=== PATIENT | male | born 1945 | race African-American/Black ===

== ENCOUNTER 2016-06-23 15:30 | Inpatient (IN) | payer OTHER ==
[~2016-06-23] VITALS: Ht 175.3 cm; Wt 90.7 kg
--- NOTE | 2016-06-23 15:30 | NUR ---
Patient was BIBA at this time. Dr. Harvey evaluating patient.
--- NOTE | 2016-06-23 15:32 | NUR ---
Patient taken to bed 04.
[2016-06-23] MEDS ORDERED: NACL 0.9% 1,000 ML IV ONE (15:35)
[2016-06-23 15:38] VITALS: BP 137/65
[2016-06-23] MEDS ORDERED: COUMADIN2 MG PO (15:44)
[2016-06-23] MEDS ORDERED: LOTENSIN20 MG PO (15:44)
--- NOTE | 2016-06-23 15:56 | NUR ---
PHYSICIAN REQUESTS VBG TO BE DONE. BLOOD SAMPLE OBTAINED FROM LAB. RESULTS GIVEN TO . PT NOT SOB AND NOT IN RESPIRATORY DISTRESS AT THIS TIME.
--- NOTE | 2016-06-23 16:00 | NUR ---
PATIENT PRESENTS TO ED WITH nausea and vomiting poor appetite . PT STATES SKIN IS PINK/WARM/DRY; AAOX4 WITH EVEN AND STEADY GAIT; LUNGS CLEAR BL; HR EVEN AND REGULAR; PT DENIES ANY FEVER, CP, SOB, OR COUGH AT THIS TIME; PATIENT STATES PAIN OF 0/10 AT THIS TIME; VSS; PATIENT POSITIONED FOR COMFORT; HOB ELEVATED; BEDRAILS UP X2; BED DOWN. ER MD MADE AWARE OF PT STATUS. left sided deficits s/p cva
[2016-06-23] MEDS ORDERED: ONDANSETRON 4 MG/2 ML VIAL IVP ONE (16:15)
--- NOTE | 2016-06-23 16:20 | NUR ---
pt's brother at bedside--- speaking with pt and his brother, going over pt's health care plan
--- NOTE | 2016-06-23 16:21 | NUR ---
PER LAB, GLUCOSE IS 567. I MADE THIS KNOWN TO DR. SEYMOUR.
[2016-06-23] MEDS ORDERED: INSULIN HUMAN REGULAR 100 UNITS/ML 10 ML VIAL IVP ONE (16:25)
[2016-06-23] MEDS ORDERED: NACL 0.9% 1,000 ML IV SCH (16:51)
[2016-06-23] MEDS ORDERED: HYDROcodone/APAP 5/325 MG 1 TAB TAB PO PRN (16:55)
[2016-06-23] MEDS ORDERED: ONDANSETRON 4 MG/2 ML VIAL IVP PRN (16:55)
[2016-06-23] MEDS ORDERED: MORPHINE SULFATE 2 MG/ML SYR IVP PRN (16:55)
[2016-06-23] MEDS ORDERED: ACETAMINOPHEN 325 MG TAB PO PRN (16:55)
[2016-06-23] MEDS ORDERED: WARFARIN 2 MG TAB PO SCH (17:00)
[2016-06-23] MEDS ORDERED: DEXTROSE 50% 50 ML SYR IVP PRN (17:05)
[2016-06-23] MEDS ORDERED: ALBUTEROL SULFATE/IPRATROPIU 3 ML SOL IH PRN (17:15)
--- NOTE | 2016-06-23 17:35 | NUR ---
Pt transferred to Tele via [facility], report given to Austin PAGE
--- NOTE | 2016-06-23 17:36 | NUR ---
pt refusing the need to void at this time.
[2016-06-23 17:45] VITALS: BP 129/75
--- NOTE | 2016-06-23 17:45 | NUR ---
PT ALERT AND RESPONSIVE, NO SIGN OF ACUTE DISTRESS. SKIN IS WARM AND DRY. NO SIGNS OF ACUTE DISTRESS. NO EPISODES OF ANY NAUSEA OR VOMITING, NO C/O ANY BLADDER DISCOMFORT. OFFLOAD TO PRESSURE AREAS, KEPT CLEAN AND DRY. WITH HX OF CVA WITH LEFT SIDED WEAKNESS. WITH GOOD ROM ON RIGHT UPPER AND LOWER EXTREMITIES. ORIENTED TO HOSPITAL ENVIRONMENT. SAFETY PRECAUTIONS MAINTAINED. CALL LIGHT WITHIN REACH.
[2016-06-23] MEDS ORDERED: MAG SULF 2000 MG/WATER PREMIX 50 ML IV ONE (18:45)
--- NOTE | 2016-06-23 18:52 | NUR ---
PT ALERT AND RESPONSIVE, NO SIGNS OF ACUTE DISTRESS. WILL ENDORSE TO ONCOMING CERTIFIED NOVELL ENGINEER NURSE FOR CONTINUITY OF CARE.
--- NOTE | 2016-06-23 19:20 | NUR ---
RECEIVED PT IN STABLE CONDITION FROM KAYLEE PINEDA. NO SOB, NO SIGNS OF DISTRESS. VS STABLE ON ROOM AIR. PT IS AOX4, WITH DELAYED SPEECH. PT IS CHAIR FAST WITH LT SIDED SEVERE WEAKNESS. PT DENIES PAIN AT THIS TIME. SKIN IS INTACT. IV TO LT FA 20G PATENT, ASYMPTOMATIC, INTACT, IVF RUNNING. PLAN OF CARE DISCUSSED WITH PT. SAFETY MEASURES IN PLACE. CALL LIGHT WITHIN REACH. WILL CONTINUE TO MONITOR.
--- NOTE | 2016-06-23 19:50 | NUR ---
CALL FROM MD LEE. SPOKE WITH HEEL LAYER AND REQUESTED TO BE PLACED PTS ATTENDING MD SINCE HE IS THE ONE WHO SENT PT TO HOSPITAL.
--- NOTE | 2016-06-23 19:58 | NUR ---
SPOKE WITH MD DONOVAN LATENT FINGERPRINT EXAMINER FOR MD PARKER, MD DONOVAN MADE AWARE OF MD LEE REQUEST AND SATED NOT TO CHANGE PTS MD OR PUT IN A CONSULT AT THIS TIME. MD DONOVAN STATED AN MD FROM THE GROUP WILL SPEAK TO MD LEE REGARDING THE MATTER.
[2016-06-23 20:00] VITALS: BP 99/52
[2016-06-23] MEDS: BLOOD GLUCOSE MONITORING 1 DEV DEV FS SCH (20:31)
[2016-06-23] MEDS: INSULIN LISPRO SLIDING SCALE 100 UNITS/ML VIAL SUBQ PRN (20:32)
--- NOTE | 2016-06-23 20:32 | NUR ---
PTS BLOOD SUGAR 335, GAVE INSULIN PER MD ORDER, PT TOLERATED WELL. HUNG MAG RIDER PER MD ORDER. NO SOB, NO SIGNS OF DISTRESS. IV SITE ASYMPTOMATIC, INTACT, PATENT, IVPB RUNNING. PT DENIES PAIN AT THIS TIME. PLAN OF CARE DISCUSSED WITH PT. SAFETY MEASURES IN PLACE. CALL LIGHT WITHIN REACH. WILL CONTINUE TO MONITOR.
--- NOTE | 2016-06-23 20:57 | NUR ---
NO DISTRESS/SOB/WHEEZING NOTED AT THIS TIME. NO INDICATION FOR HHN PRN TX.
--- NOTE | 2016-06-23 21:31 | NUR ---
CALLED MD ROSA MD MADE AWARE THAT MD DONOVAN IS AWARE AND WILL BE SPEAKING WITH TOMORROW.
--- NOTE | 2016-06-23 22:48 | NUR ---
PT ASLEEP IN BED. NO SOB, NO SIGNS OF DISTRESS. IV SITE ASYMPTOMATIC, INTACT, PATENT, IVF RUNNING. SAFETY MEASURES IN PLACE. CALL LIGHT WITHIN REACH. WILL CONTINUE TO MONITOR.
--- NOTE | 2016-06-23 23:31 | NUR ---
ATTEMPTED TO DO ABG X 3, UNABLE TO OBTAIN SAMPLE. PT REFUSING ANY MORE ATTEMPTS. PT'S RNJOSE RAUL NOTIFIED OF ATTEMPTS MADE AND PT REFUSAL.
[2016-06-24] VITALS: BP 122/60
--- NOTE | 2016-06-24 00:05 | NUR ---
VS STABLE ON ROOM AIR. NO SOB, NO SIGNS OF DISTRESS. IV SITE ASYMPTOMATIC, INTACT, PATENT, IVF RUNNING. PT DENIES PAIN AT THIS TIME. PLAN OF CARE DISCUSSED WITH PT. SAFETY MEASURES IN PLACE. CALL LIGHT WITHIN REACH. WILL CONTINUE TO MONITOR.
[2016-06-24 04:00] VITALS: BP 120/75
[2016-06-24] MEDS: BLOOD GLUCOSE MONITORING 1 DEV DEV FS SCH ×4 (06:31→20:35)
[2016-06-24] MEDS: INSULIN LISPRO SLIDING SCALE 100 UNITS/ML VIAL SUBQ PRN ×4 (06:32→20:39)
--- NOTE | 2016-06-24 06:40 | NUR ---
CALL FROM PTS BROTHER INQUIRING ABOUT PTS CONDITION. UPDATED BROTHER ON HOW PT IS DOING. BROTHER STATED HE WILL BE BY AT 0800 THIS AM.
--- NOTE | 2016-06-24 07:02 | NUR ---
ENDORSED PT IN STABLE CONDITION TO KAYLEE PINEDA. ALL NEEDS HAVE BEEN MET AT THIS TIME.
--- NOTE | 2016-06-24 07:03 | NUR ---
PT. AWAKE, ALERT AND ORIENTED X4, BREATHING EVEN AND UNLABORED BILATERALLY, NO APPARENT DISTRESS, ABDOMEN IS SOFT AND NON-TENDER TO TOUCH, SKIN DRY, WARM AND INTACT HOWEVER AT RISK FOR SKIN BREAKDOWN (LOW MARIS), BOWEL AND BLADDER INCONTINENCE, PT. MAXIMUM ASSISTANCE WITH ADL'S WITH LEFT SIDED WEAKNESS S/P CVA. CHAIRFAST, DENIES PAIN, SIDE RAILS UP, BED LOCKED WITH ALARMS ON, IN LOW POSITION, ALL NEEDS ATTENDED, CALL LIGHT WITHIN REACH.
--- NOTE | 2016-06-24 07:06 | NUR ---
PATIENT HAS BEEN SCREENED AND CATEGORIZED HIGH NUTRITION RISK. PATIENT WILL BE SEEN WITHIN 1-2 DAYS OF ADMISSION. 06/24/16-06/25/16 TEO LEON MS, RDN
[2016-06-24 07:55] VITALS: BP 121/59
[2016-06-24] MEDS: GABAPENTIN 300 MG CAP PO SCH ×2 (08:12→20:36)
[2016-06-24] MEDS: OXYBUTYNIN 5 MG TAB PO SCH (08:12)
[2016-06-24] MEDS: ATORVASTATIN 20 MG TAB PO SCH (08:12)
[2016-06-24] MEDS: BENAZEPRIL 5 MG TAB PO SCH (08:13)
[2016-06-24] MEDS: METOPROLOL SUCCINATE 50 MG TABER PO SCH (08:13)
[2016-06-24] MEDS: DOCUSATE SODIUM 100 MG GELCAP PO SCH (08:13)
--- NOTE | 2016-06-24 10:22 | NUR ---
06/24/16 RD INITIAL ASSESSMENT COMPLETED PLEASE REFER TO NUTRITION ASSESSMENT UNDER CARE ACTIVITY FOR ESTIMATED NUTRITIONAL NEEDS. RD RECOMMENDATIONS: 1. CONTINUE NPO MEDICALLY APPROPRIATE PER MD. 2. CONSIDER ADVANCING DIET TO 60 GM CCHO T[address]. [address]. RD WILL F/U 3-5 DAYS; MODERATE RISK. TEO LEON MS, RDN
--- NOTE | 2016-06-24 11:30 | NUR ---
RECEIVED NEW MED AND LAB ORDERS FROM DR RAJAN, TO BE CARRIED OUT.
[2016-06-24 12:00] VITALS: BP 135/70
[2016-06-24] MEDS ORDERED: POTASSIUM PHOSPHATE 15 MM in NACL 0.9% 250 ML IV ONE (12:15)
[2016-06-24] MEDS ORDERED: MAG SULF 2000 MG/WATER PREMIX 50 ML IV ONE (12:15)
--- NOTE | 2016-06-24 12:28 | NUR ---
NEW ORDERS RECEIVED FROM DR LEE AND DR RAJAN, TO BE CARRIED OUT.
[2016-06-24] MEDS: NACL 0.9% 1,000 ML IV SCH ×2 (12:50→22:36)
--- NOTE | 2016-06-24 12:52 | NUR ---
WAS SEEN BY Grisel MCDONOUGH NEW ORDER RECEIVED FOR CXR. NOTED AND CARRIED OUT.
[2016-06-24 16:00] VITALS: BP 132/70
[2016-06-24] MEDS: metFORMIN 500 MG TAB PO SCH (16:39)
[2016-06-24] MEDS: WARFARIN 2 MG TAB PO SCH (16:40)
[2016-06-24] MEDS ORDERED: NACL 0.9% 1,000 ML IV SCH (16:51)
--- NOTE | 2016-06-24 18:56 | NUR ---
PT. ALERT AND ORIENTED X4, IN NO APPARENT DISTRESS, TRANSFER CARE TO LARGE ANIMAL VETERINARIAN NURSE.
--- NOTE | 2016-06-24 19:30 | NUR ---
RECEIVED REPORT FROM KAYLEE PINEDA, AT BEDSIDE. INITIAL ASSESSMENT AND BODY CHECK DONE. PATIENT IS AAO X 4, ABLE TO FOLLOW COMMAND AND MAKE NEEDS KNOWN AND ON BEDREST WITH LT SIDE WEAKNESS. PATIENT CURRENTLY SITING UP ON THE BED AND WATCHING TV. NO S/S OF DISTRESS OR SOB NOTED. SKIN WARM/DRY TO TOUCH WITH NORMAL COLOR AND INTACT. DISCUSSED PLAN OF CARE, PAIN MANAGEMENT AND MEDICATION REGIMEN WITH PATIENT AND PATIENT VERBALIZED UNDERSTANDING. PLACED PATIENT ON SAFETY/FALL/ASPIRATION/PRESSURE ULCER PRECAUTIONS AND WILL CONTINUE TO MONITOR WITH REPOSITION Q 2 HOURS. CALL LIGHT LEFT WITHIN REACH.
[2016-06-24 20:00] VITALS: BP 124/73
--- NOTE | 2016-06-24 21:40 | NUR ---
ADMINISTERED DUE MEDICATIONS MD'S ORDERED WITH EDUCATION GIVEN. PATIENT COMPLYING WITH MEDICATIONS AND TOLERATED WELL. MAINTAINED PROPER BODY ALIGNMENT AND KEPT PATIENT WARM. WILL CONTINUE TO MONITOR.
[2016-06-25] VITALS: BP 97/52
--- NOTE | 2016-06-25 00:54 | NUR ---
PATIENT STILL AWAKE AND WATCHING TV COMFORTABLY. VSS AND NO ANY COMPLAINT MADE. ASSISTED TO REPOSITION AND PATIENT TOLERATED WELL. WILL CONTINUE TO MONITOR.
[2016-06-25 04:00] VITALS: BP 130/88
--- NOTE | 2016-06-25 04:38 | NUR ---
PATIENT RESTED QUIETLY IN BED WITH EVEN AND UNLABORED RESPIRATORY RATE. NO CHANGE IN CONDITION NOTED. AM CARE/AD-CARE GIVEN WITH LINENS CHANGED AND REPOSITION BY TWO OPHTHALMIC SURGICAL ASSISTANT. PATIENT TOLERATED WELL. WILL CONTINUE TO MONITOR.
[2016-06-25] MEDS: BLOOD GLUCOSE MONITORING 1 DEV DEV FS SCH ×4 (05:42→20:35)
[2016-06-25] MEDS: INSULIN LISPRO SLIDING SCALE 100 UNITS/ML VIAL SUBQ PRN ×3 (05:44→20:38)
--- NOTE | 2016-06-25 07:36 | NUR ---
ENDORSED PLAN OF CARE TO KAYLEE VILLARREAL, AT BEDSIDE. PATIENT RESTED WELL AND REMAINED IN STABLE CONDITION WITHOUT DISTRESS NOTED.
--- NOTE | 2016-06-25 07:40 | NUR ---
RECEIVED REPORT FROM KAYLEE SORIA. PT A/OX4, IV IS ON THE LT WRIST, PATENT, INTACT, INFUSING WELL, SKIN IS INTACT, NO S/S OF RESPIRATORY DISTRESS OR DISCOMFORT NOTED, FALL/SAFETY PRECAUTIONS ARE IN PLACE, DISCUSSED PLAN OF CARE WITH PT, PT VERBALIZED UNDERSTANDING, CALL LIGHT IS WITHIN REACH, WILL CONTINUE TO MONITOR.
[2016-06-25 08:00] VITALS: BP 115/83
[2016-06-25] MEDS: GABAPENTIN 300 MG CAP PO SCH ×2 (08:28→20:35)
[2016-06-25] MEDS: METOPROLOL SUCCINATE 50 MG TABER PO SCH (08:29)
[2016-06-25] MEDS: OXYBUTYNIN 5 MG TAB PO SCH (08:29)
[2016-06-25] MEDS: ATORVASTATIN 20 MG TAB PO SCH (08:30)
[2016-06-25] MEDS: metFORMIN 500 MG TAB PO SCH ×2 (08:32→16:50)
[2016-06-25] MEDS: NACL 0.9% 1,000 ML IV SCH ×3 (08:33→20:40)
[2016-06-25] MEDS: DOCUSATE SODIUM 100 MG GELCAP PO SCH (08:34)
[2016-06-25] MEDS: BENAZEPRIL 5 MG TAB PO SCH (08:35)
--- NOTE | 2016-06-25 09:00 | NUR ---
PT RESTING IN BED, NO S/S OF RESPIRATORY DISTRESS OR DISCOMFORT NOTED, CALL LIGHT WITHIN REACH, WILL CONTINUE TO MONITOR.
--- NOTE | 2016-06-25 11:30 | NUR ---
PT RESTING IN BED, WATCHING TV. CALL LIGHT WITHIN REACH, WILL CONTINUE TO MONITOR.
[2016-06-25 12:00] VITALS: BP 141/70
--- NOTE | 2016-06-25 14:00 | NUR ---
PT IS SLEEPING AT THIS TIME.
[2016-06-25 16:00] VITALS: BP 137/81
[2016-06-25] MEDS: WARFARIN 2 MG TAB PO SCH (16:53)
--- NOTE | 2016-06-25 16:54 | NUR ---
DUE MEDICATIONS GIVEN, PT TOLERATED WELL, PATIENT'S BROTHER IS AT BEDSIDE.
--- NOTE | 2016-06-25 19:15 | NUR ---
ENDORSED PT TO KAYLEE SORIA. FOR CONTINUITY OF CARE, PT STABLE AT THIS TIME.
--- NOTE | 2016-06-25 19:28 | NUR ---
RECEIVED REPORT FROM KAYLEE VILLARREAL, AT BEDSIDE. INITIAL ASSESSMENT AND BODY CHECK DONE. PATIENT IS AAO X 4, ABLE TO FOLLOW COMMAND AND MAKE NEEDS KNOWN AND ON BEDREST WITH LT SIDE WEAKNESS. PATIENT CURRENTLY SITING UP ON THE BED AND WATCHING TV. VSS AND NO S/S OF DISTRESS OR SOB NOTED. SKIN WARM/DRY TO TOUCH WITH NORMAL COLOR AND INTACT. DISCUSSED PLAN OF CARE, PAIN MANAGEMENT AND MEDICATION REGIMEN WITH PATIENT AND PATIENT VERBALIZED UNDERSTANDING. PLACED PATIENT ON SAFETY/FALL/PRESSURE ULCER PRECAUTIONS AND WILL CONTINUE TO MONITOR WITH REPOSITION Q 2 HOURS. CALL LIGHT LEFT WITHIN REACH.
[2016-06-25 20:00] VITALS: BP 129/70
--- NOTE | 2016-06-25 21:30 | NUR ---
ADMINISTERED DUE MEDICATIONS MD'S ORDERED WITH EDUCATION GIVEN. PATIENT COMPLYING WITH MEDICATIONS AND TOLERATED WELL. MAINTAINED PROPER BODY ALIGNMENT AND KEPT PATIENT WARM. ALL NEEDS ARE ATTENDED. WILL CONTINUE TO MONITOR.
--- NOTE | 2016-06-25 22:50 | NUR ---
ROUNDS MADE, SEEN PATIENT WATCHING TV COMFORTABLY IN BED WITH STABLE CONDITION. WILL CONTINUE TO MONITOR.
[2016-06-26] VITALS: BP 145/84
--- NOTE | 2016-06-26 01:10 | NUR ---
PATIENT IS CLINICALLY STABLE WITH UNCHANGED V/S. REPOSITION FOR COMFORT/PRESSURE RELIEF AND WILL CONTINUE TO MONITOR.
[2016-06-26 03:59] VITALS: BP_SYST 137; BP_SYST 153; BP_DIAS 63; BP_DIAS 84
--- NOTE | 2016-06-26 04:00 | NUR ---
PATIENT ASLEEP QUIETLY IN BED, EASILY AROUSED AND REMAINED IN STABLE CONDITION. WILL CONTINUE TO MONITOR.
[2016-06-26] MEDS: BLOOD GLUCOSE MONITORING 1 DEV DEV FS SCH ×3 (05:53→15:57)
[2016-06-26] MEDS: INSULIN LISPRO SLIDING SCALE 100 UNITS/ML VIAL SUBQ PRN ×3 (05:54→16:07)
[2016-06-26] MEDS: NACL 0.9% 1,000 ML IV SCH (06:53)
--- NOTE | 2016-06-26 07:30 | NUR ---
ENDORSED PLAN OF CARE TO CHARGE NURSE. PATIENT RESTED WELL THROUGHOUT THE SHIFT AND REMAINED IN STABLE CONDITION.
[2016-06-26 08:00] VITALS: BP 130/77
--- NOTE | 2016-06-26 08:30 | NUR ---
RECEIVED REPORT FROM CHARGE NURSE. PT A/OX4, IV IS ON THE LT WRIST, PATENT, INTACT, INFUSING WELL, PT HAS INCONTINENT DERMATITIS, NO S/S OF RESPIRATORY DISTRESS OR DISCOMFORT NOTED, FALL/SAFETY PRECAUTIONS ARE IN PLACE, DISCUSSED PLAN OF CARE WITH PT, PT VERBALIZED UNDERSTANDING, CALL LIGHT IS WITHIN REACH, WILL CONTINUE TO MONITOR.
[2016-06-26] MEDS: metFORMIN 500 MG TAB PO SCH (09:09)
[2016-06-26] MEDS: GABAPENTIN 300 MG CAP PO SCH (09:10)
[2016-06-26] MEDS: METOPROLOL SUCCINATE 50 MG TABER PO SCH (09:10)
[2016-06-26] MEDS: DOCUSATE SODIUM 100 MG GELCAP PO SCH (09:10)
[2016-06-26] MEDS: OXYBUTYNIN 5 MG TAB PO SCH (09:11)
[2016-06-26] MEDS: ATORVASTATIN 20 MG TAB PO SCH (09:11)
--- NOTE | 2016-06-26 09:11 | NUR ---
DUE MEDICATIONS GIVEN, PT TOLERATED WELL, WILL CONTINUE TO MONITOR.
[2016-06-26] MEDS: BENAZEPRIL 5 MG TAB PO SCH (09:14)
--- NOTE | 2016-06-26 11:20 | NUR ---
PT RESTING IN BED WATCHING TV, NO S/S OF RESPIRATORY DISTRESS OR DISCOMFORT NOTED, CALL LIGHT WITHIN REACH, WILL CONTINUE TO MONITOR.
[2016-06-26 12:00] VITALS: BP 131/74
--- NOTE | 2016-06-26 13:16 | NUR ---
PT RESTING IN BED WATCHING TV.
--- NOTE | 2016-06-26 13:28 | NUR ---
CM NOTE SPOKE WITH ABRIL ALCOCER OF [facility] PH# [phone], AMBULANCE AUT# [id number]. PATIIENT TRANSPORT SET UP WITH [facility] TIME 1630 TODAY GOING TO [facility] 15 BED A, NUMBER TO CALL FOR REPORT PH# [phone]. NURSE CHERELLE AWARE EXT [phone] Addendum: 06/26/16 at 1333 by Allie Hull CM SPOKE WITH FABIOLA OF [facility] PH# [phone]
[2016-06-26 16:00] VITALS: BP 136/70
--- NOTE | 2016-06-26 16:30 | NUR ---
CALLED HASMUKH ORTA AT [phone], GAVE REPORT TO KAYLEE BERKOWITZ. PT GOING TO ROOM 15 A.
--- NOTE | 2016-06-26 16:40 | NUR ---
PROVIDED PT WITH DISCHARGE INSTRUCTIONS, REMOVED ID WRIST BAND, REMOVED IV, CATHETER TIP INTACT.
--- NOTE | 2016-06-26 16:45 | NUR ---
CALLED THE PATIENT'S BROTHER JONN, INFORMED HIM THE PT WAS GOING TO BE DISCHARGED AND TRANSFERRED TO [facility]. JONN VERBALIZED UNDERSTANDING.
[2016-06-26] MEDS ORDERED: WARFARIN 2 MG TAB PO SCH (17:00)
--- NOTE | 2016-06-26 17:25 | NUR ---
[facility] HERE TO TRANSPORT PT. PT STABLE UPON DISCHARGE.
== END 2016-06-26 17:30 | DRG 638 ==
LOC: MED 15:30 → MTU 16:42
PROVIDERS: ADMIT Family Medicine; ATTEND Family Medicine
DX: E13.10 Other specified diabetes mellitus with ketoacidosis without coma (principal); D68.69 Other thrombophilia; E87.1 Hypo-osmolality and hyponatremia; I69.354 Hemiplegia and hemiparesis following cerebral infarction affecting left non-dominant side; I48.0 Paroxysmal atrial fibrillation; R32 Unspecified urinary incontinence; E83.39 Other disorders of phosphorus metabolism; E83.42 Hypomagnesemia; I10 Essential (primary) hypertension; Z53.29 Procedure and treatment not carried out because of patient's decision for other reasons; E78.5 Hyperlipidemia, unspecified; G47.00 Insomnia, unspecified; F32.9 Major depressive disorder, single episode, unspecified; E03.9 Hypothyroidism, unspecified; Z79.899 Other long term (current) drug therapy; Z79.01 Long term (current) use of anticoagulants

== ENCOUNTER 2018-03-28 16:31 | Inpatient (IN) | payer OTHER ==
[~2018-03-28] VITALS: Ht 180.3 cm; Wt 88.9 kg
[~2018-03-28 16:31] MED LIST: BENA20TA PO; WARF2TAB79 PO
--- NOTE | 2018-03-28 16:36 | NUR ---
PT BIBA ALS TO BED 11
[2018-03-28 16:42] VITALS: BP 143/78
--- NOTE | 2018-03-28 16:51 | NUR ---
XRAY AT BEDSIDE
--- NOTE | 2018-03-28 16:55 | NUR ---
BIB BY DONIS FROM [facility]. FAMILY STATES TO NOTICE A CHANGE IN MENTAL STATUS AT 1600. ELEVATED BS TOO HIGH TO READ REPORTED BY DONIS. DENIES N/V/D; SKIN IS PINK/WARM/DRY; LUNGS CLEAR BL; HR EVEN AND REGULAR; PT DENIES ANY FEVER, CP, SOB, OR COUGH AT THIS TIME; VSS; PATIENT POSITIONED FOR COMFORT; HOB ELEVATED; BEDRAILS UP X2; BED DOWN. ER MD MADE AWARE OF PT STATUS.
[2018-03-28 17:10] LABS: BASOPHILS # (AUTO) 0.1 K/uL (0.00-0.22); BASOPHILS % (AUTO) 0.7 % (0.0-2.0); HEMOGLOBIN 14.8 g/dL (12.0-18.0); LYMPHOCYTES # (AUTO) 2.3 K/uL (2.0-11.5); LYMPHOCYTES % (AUTO) 18.3 % (20.5-51.1); MEAN CORPUSCULAR HEMOGLOBIN 24 pg (27-31); MEAN CORPUSCULAR HGB CONC 31 g/dL (33-37); MEAN CORPUSCULAR VOLUME 79.3 fL (80-94); MONOCYTES # (AUTO) 1.1 K/uL (0.8-1.0); MONOCYTES % (AUTO) 8.8 % (1.7-9.3); NEUTROPHILS # (AUTO) 8.9 K/uL (1.8-7.7); NEUTROPHILS % (AUTO) 72.2 % (42.2-75.2); PLATELET COUNT (AUTO) 198 K/uL (140-450); RED BLOOD CELL COUNT(AUTO) 6.05 MIL/uL (4.20-6.10); RED CELL DISTRIBUTION WIDTH 15.4 % (11.6-13.7); WHITE BLOOD COUNT (AUTO) 12.4 K/uL (4.8-10.8)
[2018-03-28 17:31] LABS: CHLORIDE 103 mmol/L (98-107); POTASSIUM 5.3 mmol/L (3.5-5.1); SODIUM SERUM 141 mmol/L (136-145)
[2018-03-28 17:32] LABS: ANION GAP 22.9 (8-16); CARBON DIOXIDE 20.4 mmol/L (21-32); CREATININE 1.5 mg/dL (0.7-1.3); UREA NITROGEN, BLOOD 28 mg/dL (7-18)
[2018-03-28 17:33] LABS: GLUCOSE 626 mg/dL (74-106)
--- NOTE | 2018-03-28 17:36 | NUR ---
PT TAKEN TO CT VIA GURNY BY [id number].
[2018-03-28] MEDS ORDERED: DILTIAZEM 25 MG/5 ML VIAL IVP ONE (17:40)
[2018-03-28 17:46] LABS: ALBUMIN 3.9 g/dL (3.4-5.0); ASPARTATE AMINOTRANSFERASE 17 U/L (15-37)
--- NOTE | 2018-03-28 18:00 | NUR ---
# 14 FR Urinary catheter inserted utilizing sterile technique. Immediate return of 300 ml clear, yellow urine noted. Urine sample collected and sent to lab. Pt tolerated procedure well.
--- NOTE | 2018-03-28 18:10 | NUR ---
AD CARE; UNDERPADS CHANGED; BED LINENS CHANGED. COMFORT MEASURES.
--- NOTE | 2018-03-28 18:15 | NUR ---
CRITICAL LAB VALUE REPORTED BY AJAY FROM LAB; TROPONIN 0.179. JASON PANG MADE AWARE.
[2018-03-28] MEDS: NACL 0.9% 1,000 ML IV SCH ×2 (18:33→23:17)
[2018-03-28] MEDS ORDERED: ACETAMINOPHEN 325 MG TAB PO PRN (18:35)
[2018-03-28] MEDS ORDERED: LORazepam 2 MG/ML VIAL IM/IVP PRN (18:35)
[2018-03-28] MEDS ORDERED: ONDANSETRON 4 MG/2 ML VIAL IM/IVP PRN (18:35)
[2018-03-28] MEDS ORDERED: DOCUSATE SODIUM 100 MG GELCAP PO PRN (18:35)
[2018-03-28] MEDS ORDERED: HYDROcodone/APAP 5/325 MG 1 TAB TAB PO PRN (18:35)
[2018-03-28] MEDS ORDERED: MORPHINE SULFATE 4 MG/ML SYR IVP PRN (18:35)
[2018-03-28] MEDS ORDERED: ZOLPIDEM 5 MG TAB PO PRN (18:35)
[2018-03-28] MEDS ORDERED: HEPARIN PER PHARMACY MC PRN (18:45)
[2018-03-28] MEDS ORDERED: hePARIN / DEXT 5% PREMIX 250 ML IV SCH (18:45)
[2018-03-28] MEDS ORDERED: NITROGLYCERIN 0.4 MG TAB SL PRN (18:50)
[2018-03-28] MEDS ORDERED: LISINOPRIL 5 MG TAB PO SCH ×3 (18:50→21:00)
[2018-03-28 18:51] LABS: APPEARANCE,URINE SL CLOUDY (CLEAR); BILIRUBIN,URINE NEGATIVE (NEGATIVE); BLOOD, URINE NEGATIVE (NEGATIVE); COLOR,URINE YELLOW (YELLOW); LEUKOCYTE ESTERASE ,URINE NEGATIVE (NEGATIVE); NITRITE, URINE NEGATIVE (NEGATIVE); UGLUCOSE 3+ (NEGATIVE)
[2018-03-28] MEDS ORDERED: INSULIN REGULAR, HUMAN 100 UNIT/ML VIAL SUBQ ONE (18:55)
[2018-03-28] MEDS ORDERED: DEXTROSE 50% 50 ML SYR IVP PRN ×2 (18:55→23:50)
[2018-03-28] MEDS ORDERED: INSULIN LISPRO SLIDING SCALE 100 UNITS/ML VIAL SUBQ PRN (18:55)
[2018-03-28] MEDS ORDERED: NACL 0.9% 1,000 ML IV ONE (19:05)
[2018-03-28 19:07] LABS: TOTAL BILIRUBIN 0.5 mg/dL (0.0-1.0)
[2018-03-28] MEDS ORDERED: INSULIN REGULAR, HUMAN 100 UNIT/ML VIAL IVP ONE (19:10)
--- NOTE | 2018-03-28 19:14 | NUR ---
REPORT GIVEN TO JONA FOR CONTINUED CARE.
--- NOTE | 2018-03-28 19:20 | NUR ---
RECEIVED REPORT FROM AM NURSE. PT LAYING IN BED, VS NOTED, NO S/S OF DISTRESS. ALL NEEDS MET.
[2018-03-28 19:21] LABS: CHOL/HDL RATIO 3.3 (1-4.5); MAGNESIUM 2.1 mg/dL (1.8-2.4); PHOSPHORUS 4.8 mg/dL (2.5-4.9)
[2018-03-28 19:22] LABS: FREE T4 (FREE THYROXINE) 0.97 ng/dL (0.76-1.46); THYROID STIMULATING HORMONE 2.35 uIU/mL (0.34-3.74)
[2018-03-28 19:25] LABS: BARBITURATE, URINE NEGATIVE ng/ml (NEG <=200); BENZODIAZEPINE, URINE NEGATIVE ng/mL (NEG <=200); CANNABINOID, URINE NEGATIVE ng/mL (NEG <=50); COCAINE, URINE NEGATIVE ng/mL (NEG <=300); OPIATE, URINE NEGATIVE ng/mL (NEG <=2000); PHENCYCLIDINE SCREEN,URINE NEGATIVE ng/mL (NEG <=25)
--- NOTE | 2018-03-28 19:40 | NUR ---
Patient will be admitted to care of DR. DELUNA. Admited to ICU. Will go to room 3. Belongings list completed. Report to KAYLEE VICKERS.
[2018-03-28 19:45] LABS: PROTHROMBIN TIME 15.8 secs (10.8-13.4)
--- NOTE | 2018-03-28 19:45 | NUR ---
PATIENT TRANSFERRED FROM ER VIA GURNEY WITH 2 ASSISTANCE. PATIENT AAOX2, ABLE TO FOLLOW SIMPLE COMMANDS AND ANSWER SIMPLE QUESTIONS. HX OF CVA WITH LEFT SIDE WEAKNESS NOTED. ON ROOM AIR, NO ACUTE RESPIRATORY DISTRESS NOTED. BILATERAL LUNG SOUNDS CLEAR. A FIB ON THE CONTRACT DESIGNER WITH HR 96 NOTED. PERIPHERAL LINE TO RIGHT FOREARM 20G AND LEFT FOREARM 20G, BOTH INTACT AND PATENT. SKIN IS INTACT AND WARM TO TOUCH. DENIES PAIN AT THIS TIME. HOB ELEVATED, BED IN LOW POSITION, CALL LIGHT WITHIN REACH. WILL CONTINUE TO MONITOR.
[2018-03-28 20:00] VITALS: BP 129/75
--- NOTE | 2018-03-28 20:13 | NUR ---
Note dustin in EDM - 03/28/18 at 2019 by DARRYL Patient will be admitted to care of DR. DELUNA. Admited to ICU. Will go to room 3. Belongings list completed. Report to KAYLEE VICKERS.
[2018-03-28] MEDS ORDERED: INSULIN REGULAR, HUMAN 100 UNIT in NACL 0.9% 100 ML IV SCH ×4 (20:30→23:50)
[2018-03-28] MEDS: METOPROLOL 25 MG TAB PO SCH ×2 (20:54→21:00)
[2018-03-28] MEDS: SIMVASTATIN 20 MG TAB PO SCH ×2 (20:55→21:00)
[2018-03-28 21:00] VITALS: BP 148/50
[2018-03-28] MEDS ORDERED: BLOOD GLUCOSE MONITORING 1 DEV DEV FS SCH ×2 (21:00)
--- NOTE | 2018-03-28 21:00 | NUR ---
ADMINISTERED SCHEDULED MEDICATIONS ORDERED, PATIENT TOLERATED WELL. PATIENT ABLE TO SWALLOW WITHOUT PROBLEM. NO ACUTE DISTRESS NOTED. DENIES PAIN OR DISCOMFORT. WILL CONTINUE TO MONITOR.
[2018-03-28 21:46] LABS: BASOPHILS # (AUTO) 0.1 K/uL (0.00-0.22); BASOPHILS % (AUTO) 0.6 % (0.0-2.0); HEMATOCRIT 47.4 % (36-52); HEMOGLOBIN 14.2 g/dL (12.0-18.0); LYMPHOCYTES # (AUTO) 2.4 K/uL (2.0-11.5); LYMPHOCYTES % (AUTO) 15.5 % (20.5-51.1); MEAN CORPUSCULAR HEMOGLOBIN 24 pg (27-31); MEAN CORPUSCULAR HGB CONC 30 g/dL (33-37); MEAN CORPUSCULAR VOLUME 79.5 fL (80-94); MONOCYTES # (AUTO) 1.5 K/uL (0.8-1.0); MONOCYTES % (AUTO) 9.4 % (1.7-9.3); NEUTROPHILS # (AUTO) 11.6 K/uL (1.8-7.7); NEUTROPHILS % (AUTO) 74.5 % (42.2-75.2); PLATELET COUNT (AUTO) 172 K/uL (140-450); RED BLOOD CELL COUNT(AUTO) 5.96 MIL/uL (4.20-6.10); RED CELL DISTRIBUTION WIDTH 15.8 % (11.6-13.7); WHITE BLOOD COUNT (AUTO) 15.6 K/uL (4.8-10.8)
[2018-03-28 22:00] VITALS: BP 127/74
--- NOTE | 2018-03-28 22:05 | NUR ---
STARTED HEPARIN DRIP ORDERED, FOLLOW PROTOCOL ORDERED, GIVEN BOLUS ORDERED, RATE 1244 UNTIS/HR. PATIENT DENIES PAIN. WILL CONTINUE TO MONITOR.
[2018-03-28] MEDS: BLOOD GLUCOSE MONITORING 1 DEV DEV FS SCH ×2 (22:23→23:18)
[2018-03-28 23:00] VITALS: BP 113/81
[2018-03-28 23:11] LABS: ANION GAP 19.8 (8-16); CARBON DIOXIDE 20.9 mmol/L (21-32); CHLORIDE 108 mmol/L (98-107); POTASSIUM 4.7 mmol/L (3.5-5.1); SODIUM SERUM 144 mmol/L (136-145)
[2018-03-28 23:14] LABS: GLUCOSE 517 mg/dL (74-106); UREA NITROGEN, BLOOD 26 mg/dL (7-18)
[2018-03-28 23:15] LABS: CREATININE 1.4 mg/dL (0.7-1.3)
[2018-03-29] VITALS (22 sets, daily range): BP systolic 108–161; BP diastolic 53–92
--- NOTE | 2018-03-29 | NUR ---
BS MONITOR Q1HR ORDERED, NS 250ML/HR, ON INSULIN AND HEPARIN DRIP. TOLERATED WELL.
[2018-03-29] MEDS: BLOOD GLUCOSE MONITORING 1 DEV DEV FS SCH ×25 (00:35→23:54)
[2018-03-29 01:10] LABS: BASOPHILS % (AUTO) 0.4 % (0.0-2.0); HEMOGLOBIN 13.5 g/dL (12.0-18.0); LYMPHOCYTES # (AUTO) 3.2 K/uL (2.0-11.5); LYMPHOCYTES % (AUTO) 23.1 % (20.5-51.1); MEAN CORPUSCULAR HEMOGLOBIN 24 pg (27-31); MEAN CORPUSCULAR HGB CONC 31 g/dL (33-37); MONOCYTES # (AUTO) 1.2 K/uL (0.8-1.0); MONOCYTES % (AUTO) 8.7 % (1.7-9.3); NEUTROPHILS # (AUTO) 9.4 K/uL (1.8-7.7); NEUTROPHILS % (AUTO) 67.8 % (42.2-75.2); PLATELET COUNT (AUTO) 161 K/uL (140-450); RED BLOOD CELL COUNT(AUTO) 5.59 MIL/uL (4.20-6.10); RED CELL DISTRIBUTION WIDTH 15.6 % (11.6-13.7); WHITE BLOOD COUNT (AUTO) 13.9 K/uL (4.8-10.8)
[2018-03-29] MEDS ORDERED: METO25TE2 PO (01:41)
[2018-03-29] MEDS ORDERED: DIT5 PO (01:41)
[2018-03-29] MEDS ORDERED: ATOR40TA PO (01:41)
[2018-03-29] MEDS ORDERED: LEVEMIR SUBQ (01:41)
[2018-03-29] MEDS ORDERED: WARF4TAB PO (01:41)
[2018-03-29] MEDS ORDERED: MIRT15TA PO (01:41)
[2018-03-29] MEDS ORDERED: GABA-638 PO (01:41)
[2018-03-29] MEDS ORDERED: METF1000 PO (01:41)
[2018-03-29 01:45] LABS: HEMATOCRIT 40.5 % (36-52)
[2018-03-29] MEDS ORDERED: INSULIN LANTUS 100 UNITS/ML 10 ML VIAL SUBQ SCH ×2 (01:45→02:00)
[2018-03-29] MEDS ORDERED: MIRTAZAPINE 15 MG TAB PO SCH (01:45)
[2018-03-29] MEDS: MIRTAZAPINE 15 MG TAB PO SCH ×2 (02:00→21:11)
--- NOTE | 2018-03-29 02:05 | NUR ---
BS 339 NOTED, DECREASED INSULIN DRIP TO 4 UNITS/HR. WILL CONTINUE TO MONITOR.
[2018-03-29 02:14] LABS: PHOSPHORUS 2.8 mg/dL (2.5-4.9)
[2018-03-29 02:18] LABS: ANION GAP 14.7 (8-16); CARBON DIOXIDE 23.6 mmol/L (21-32); CHLORIDE 111 mmol/L (98-107); CREATININE 1.2 mg/dL (0.7-1.3); POTASSIUM 4.3 mmol/L (3.5-5.1); SODIUM SERUM 145 mmol/L (136-145); UREA NITROGEN, BLOOD 23 mg/dL (7-18)
[2018-03-29 02:20] LABS: GLUCOSE 459 mg/dL (74-106)
[2018-03-29] MEDS: NACL 0.9% 1,000 ML IV SCH ×4 (02:49→15:50)
[2018-03-29] MEDS ORDERED: CLINDAMYCIN 600 MG/4 ML VIAL ONE (05:02)
--- NOTE | 2018-03-29 05:10 | NUR ---
HOLD HEPARIN DRIP PROTOCOL, PTT 94.4 NOTED. INSULIN DRIP AT 3UNITS/HR. WILL CONTINUE TO MONITOR.
[2018-03-29 06:00] LABS: BASOPHILS % (AUTO) 0.3 % (0.0-2.0); EOSINOPHILS % (AUTO) 0.2 % (0.0-4.0); HEMATOCRIT 43.9 % (36-52); HEMOGLOBIN 13.3 g/dL (12.0-18.0); LYMPHOCYTES # (AUTO) 4.3 K/uL (2.0-11.5); LYMPHOCYTES % (AUTO) 29.8 % (20.5-51.1); MEAN CORPUSCULAR HEMOGLOBIN 24 pg (27-31); MEAN CORPUSCULAR HGB CONC 30 g/dL (33-37); MEAN CORPUSCULAR VOLUME 79.9 fL (80-94); MONOCYTES # (AUTO) 1.8 K/uL (0.8-1.0); MONOCYTES % (AUTO) 12.2 % (1.7-9.3); NEUTROPHILS # (AUTO) 8.3 K/uL (1.8-7.7); NEUTROPHILS % (AUTO) 57.5 % (42.2-75.2); PLATELET COUNT (AUTO) 169 K/uL (140-450); RED BLOOD CELL COUNT(AUTO) 5.49 MIL/uL (4.20-6.10); RED CELL DISTRIBUTION WIDTH 15.9 % (11.6-13.7); WHITE BLOOD COUNT (AUTO) 14.4 K/uL (4.8-10.8)
--- NOTE | 2018-03-29 06:10 | NUR ---
RESTARTED HEPARIN DRIP RATE AT 1020UNIT/HR, INSULIN DRIP ON 2UNITS/HR AT THIS TIME, LAST BS 222 NOTED. WILL CONTINUE TO MONITOR.
--- NOTE | 2018-03-29 06:50 | NUR ---
BS CHECKED 216 NOTED. INSULIN DRIP STILL 2UNITS/HR. WILL CONTINUE TO MONITOR.
[2018-03-29 07:19] LABS: ANION GAP 15.1 (8-16); CARBON DIOXIDE 24.9 mmol/L (21-32); CHLORIDE 114 mmol/L (98-107); GLUCOSE 298 mg/dL (74-106); SODIUM SERUM 151 mmol/L (136-145); UREA NITROGEN, BLOOD 22 mg/dL (7-18)
--- NOTE | 2018-03-29 07:20 | NUR ---
RECEIVED REPORT FROM SLIDE FASTENER REPAIRER RN. PT SLEEPING IN BED AROUSABLE. A/OX3. ABLE TO MAKE NEEDS KNOWN. SLURRED AND SLOW SPEECH. SKIN DRY AND WARM TO TOUCH. A FIB ON MONITOR. LUNGS CLEAR. ABDOMEN SOFT, ROUND AND NON-TENDER. HYPOACTIVE BOWEL SOUND. PERIPHERAL LINES ON LEFT AND RIGHT FOREARM 20G. INTACT LINES. HEPARIN RUNNING AT 1020 UNIT/HR. ON INSULINDRIP RUNNING AT 2 UNITS/HR. NS AT 250 ML/HR. LEFT SIDED PARALYSED. ABLE TO MOVE RIGHT UPPER AND LOWER EXTREMITIES SLIGHTLY. DENIES ANY PAIN AT THIS TIME. AFEBRILE. BED IN LOW POSITION LOCKED. CALL LIGHT WITHIN REACH. WILL CONTINUE TO MONITOR.
--- NOTE | 2018-03-29 07:45 | NUR ---
PT ASSISTED TO PERFORM MORNING CARE. ABLE TO BRUSH TEETH WITH MINIMAL ASSISTANCE.
--- NOTE | 2018-03-29 08:37 | NUR ---
PATIENT HAS BEEN SCREENED AND CATEGORIZED HIGH NUTRITION RISK. PATIENT WILL BE SEEN WITHIN 1-2 DAYS OF ADMISSION. 03/29/18-03/30/[address]
[2018-03-29] MEDS ORDERED: KCL 20 MEQ/WATER INJ PREMIX 200 ML IV SCH ×3 (09:00→23:00)
[2018-03-29] MEDS ORDERED: BENAZEPRIL 20 MG TAB PO SCH (09:00)
[2018-03-29] MEDS ORDERED: METOPROLOL SUCCINATE 50 MG TABER PO SCH (09:00)
[2018-03-29] MEDS ORDERED: OXYBUTYNIN 5 MG TAB PO SCH (09:00)
[2018-03-29] MEDS ORDERED: GABAPENTIN 300 MG CAP PO SCH (09:00)
[2018-03-29] MEDS ORDERED: LISINOPRIL 5 MG TAB PO SCH (09:00)
[2018-03-29] MEDS: ASPIRIN 81 MG TAB.CHEW PO SCH (09:25)
[2018-03-29] MEDS: GABAPENTIN 300 MG CAP PO SCH ×2 (09:26→21:11)
[2018-03-29] MEDS: OXYBUTYNIN 5 MG TAB PO SCH (09:26)
[2018-03-29] MEDS: BENAZEPRIL 5 MG TAB PO SCH (09:26)
[2018-03-29] MEDS: METOPROLOL SUCCINATE 50 MG TABER PO SCH (09:27)
[2018-03-29] MEDS ORDERED: PROBIOTIC SCREEN 1 EA MISC MC PRN (10:45)
[2018-03-29 10:48] LABS: MAGNESIUM 2.1 mg/dL (1.8-2.4); PHOSPHORUS 1.6 mg/dL (2.5-4.9)
--- NOTE | 2018-03-29 11:55 | NUR ---
APPT RESULT NOTED >150. HEPARIN DRIP ON HOLD PER PROTOCOL. DR. LAURENT MADE AWARE.
[2018-03-29 13:21] LABS: ANION GAP 10.2 (8-16); CARBON DIOXIDE 26.3 mmol/L (21-32); CHLORIDE 116 mmol/L (98-107); CREATININE 0.9 mg/dL (0.7-1.3); GLUCOSE 211 mg/dL (74-106); SODIUM SERUM 147 mmol/L (136-145); UREA NITROGEN, BLOOD 19 mg/dL (7-18)
[2018-03-29 13:23] LABS: POTASSIUM 5.5 mmol/L (3.5-5.1)
--- NOTE | 2018-03-29 13:48 | NUR ---
POTASSIUM NOTED 5.5. HELD POTASSIUM INFUSION. DR. LAURENT MADE AWARE. ORDER TO REDRAW THE BLOOD FOR POTASSIUM. WILL FOLLOW UP WITH LAB FOR BLOOD REDRAWN.
--- NOTE | 2018-03-29 14:01 | NUR ---
03/29/18 RD INITIAL ASSESSMENT COMPLETED PLEASE REFER TO NUTRITION ASSESSMENT UNDER CARE ACTIVITY FOR ESTIMATED NUTRITIONAL NEEDS. 1. CONTINUE NPO DIET, UNTIL MEDICALLY APPROPRIATE TO BEGIN NUTRITION 2. WHEN/IF PT MEDICALLY STABLE TO BEGIN NUTRITION, CONSIDER ADVANCE DIET TO: [address] PROVIDED DIABETES EDUCATION HANDOUT TO FAMILY MEMBER 4. RD TO FOLLOW-UP 3-5 DAYS, MODERATE RISK IVONNE RITCHIE RD
--- NOTE | 2018-03-29 15:07 | NUR ---
BROTHER AT THE BEDSIDE. UPDATED PT CONDITION.
--- NOTE | 2018-03-29 15:41 | NUR ---
Stem Lead Former Note: Per Laila from [facility] , patient is on a 7 day bed hold and is one of their manager terminal patients. Laila stated patient's brother Charles is his healthcare decision maker.
--- NOTE | 2018-03-29 15:51 | NUR ---
DENIES ANY CHEST PAIN OR DISCOMFORT. NO SOB OR ACUTE RESPIRATORY DISTRESS NOTED. A FIB ON MONITOR.
[2018-03-29 15:53] LABS: CHLORIDE 116 mmol/L (98-107); SODIUM SERUM 150 mmol/L (136-145)
[2018-03-29 15:54] LABS: ANION GAP 16.3 (8-16); CARBON DIOXIDE 21.7 mmol/L (21-32); CREATININE 0.8 mg/dL (0.7-1.3); GLUCOSE 230 mg/dL (74-106); UREA NITROGEN, BLOOD 21 mg/dL (7-18)
[2018-03-29 17:15] LABS: ANION GAP 18.6 (8-16); CARBON DIOXIDE 19.6 mmol/L (21-32); CHLORIDE 115 mmol/L (98-107); GLUCOSE 228 mg/dL (74-106); POTASSIUM 4.2 mmol/L (3.5-5.1); SODIUM SERUM 149 mmol/L (136-145); UREA NITROGEN, BLOOD 20 mg/dL (7-18)
[2018-03-29] MEDS ORDERED: NACL 0.45% 1,000 ML IV SCH (17:25)
[2018-03-29] MEDS ORDERED: HEPARIN PER PHARMACY MC PRN (18:00)
[2018-03-29] MEDS ORDERED: hePARIN / DEXT 5% PREMIX 250 ML IV SCH (18:00)
--- NOTE | 2018-03-29 19:35 | NUR ---
BSSR RECEIVED FROM ALVARO RN FOR CONTINUITY OF CARE. GSC 14, FORGETFUL AT TIMES. REINFORCEMENT IS NEEDED. BREATH SOUNDS CLEAR AND BS ACTIVE. THERE IS A #20 IN THE RFA AND A #20 IN THE LFA. SITES ARE [facility]. EXPLAINED POC TONIGHT TO INCLUDE Q1H BLOOD SUGAR CHECKS, MEDICATION ADMINISTRATION, AND CARDIAC MONITORING. PATIENT STATED "OK". NEEDS MET AT THIS TIME. HOB AT 30 DEGREES WITH BED IN LOWEST POSITION. CONTINUE TO MONITOR PATIENT.
--- NOTE | 2018-03-29 20:38 | NUR ---
CLIENT CARE CONSULTANT AT BEDSIDE FOR LAB DRAW.
[2018-03-29] MEDS ORDERED: ATORVASTATIN 20 MG TAB PO SCH (21:00)
[2018-03-29] MEDS: ATORVASTATIN 20 MG TAB PO SCH (21:10)
--- NOTE | 2018-03-29 21:14 | NUR ---
TOLERATED DUE MEDICATIONS WITH NO DISTRESS NOTED. NEEDS MET. HOB AT 30 DEGREES WITH BED IN LOWEST POSITION. CALL LIGHT WITHIN REACH. CONTINUE TO MONITOR PATIENT.
[2018-03-29 21:32] LABS: ANION GAP 10.5 (8-16); CARBON DIOXIDE 25.7 mmol/L (21-32); CHLORIDE 116 mmol/L (98-107); CREATININE 0.8 mg/dL (0.7-1.3); GLUCOSE 148 mg/dL (74-106); POTASSIUM 3.2 mmol/L (3.5-5.1); SODIUM SERUM 149 mmol/L (136-145); UREA NITROGEN, BLOOD 16 mg/dL (7-18)
--- NOTE | 2018-03-29 22:05 | NUR ---
PATIENT INCONTINENT OF LARGE AMOUNT OF URINE. PERINEAL CARE GIVEN. KEEP SKIN DRY AND CLEAN. REPOSITIONED FOR COMFORT. TOLERATED WELL. NEEDS MET. HOB AT 30 DEGREES WITH BED IN LOWEST POSITION. CONTINUE TO MONITOR PATIENT.
--- NOTE | 2018-03-29 22:57 | NUR ---
POCT IS 69. INSULIN DRIP HELD. NOTIFIED DR. CORONEL. STATED HE WILL BE OVER TO UNIT TO DISCUSS INSULIN PROTOCOL.
[2018-03-30] VITALS (10 sets, daily range): BP systolic 98–165; BP diastolic 63–97
--- NOTE | 2018-03-30 00:02 | NUR ---
CHANGED IVF TO D51/2NS @ 75 ML/HR PER DR. HERNANDEZ'S ADDITIONAL ORDERS. INFORMED RESIDENT DR. MENDEZ. PANG STATED HE WILL CHANGE IVF FLUIDS IN THE EMAR.
[2018-03-30] MEDS ORDERED: DEXT 5% / NACL 0.45% 1,000 ML IV SCH (00:05)
[2018-03-30] MEDS: BLOOD GLUCOSE MONITORING 1 DEV DEV FS SCH ×9 (01:03→20:32)
--- NOTE | 2018-03-30 01:15 | NUR ---
PROMOTIONS SPECIALIST ATTEMPTED LAB DRAWS X3. PATIENT REFUSED LAB DRAW AT THIS TIME. PMO BUSINESS ANALYST AWARE.
--- NOTE | 2018-03-30 02:02 | NUR ---
SPOKE TO DR. CORONEL AND INFORMED MD THAT POCT IS 151 AND INSULIN DRIP HAS BEEN OFF SINCE 0. MD STATED TO KEEP PATIENT ON D51/2NS AT 75 ML/HR AND DO NOT RESTART INSULIN DRIP AT THIS TIME. NO NEW FURTHER ORDERS RECEIVED AT THIS TIME.
--- NOTE | 2018-03-30 04:26 | NUR ---
SERVICE CENTER TECHNICIAN UNABLE TO GET PERIPHERAL LAB DRAW AFTER MULTIPLE ATTEMPTS. PATIENT REFUSED FURTHER ATTEMPTS.
--- NOTE | 2018-03-30 05:01 | NUR ---
SPOKE TO DR. CORONEL TO UPDATE MD WITH PATIENT'S POCT AND PRIOR LAB DRAWS WERE UNSUCCESSFUL. STATED IT IS OK FOR PATIENT TO GET WATER. DR. CORONEL STATE HE WILL PUT IN NEW DIETARY ORDERS AND PUT PATIENT ON A SLIDING SCALE. WILL FOLLOW UP WITH NEW MD ORDERS.
[2018-03-30] MEDS ORDERED: DEXTROSE 50% 50 ML SYR IVP PRN (05:05)
--- NOTE | 2018-03-30 05:15 | NUR ---
FLOORPERSON AT BEDSIDE ATTEMPTING TO REDRAW. PATIENT REFUSED LAB DRAW. DYNAMIC BALANCER AWARE.
[2018-03-30] MEDS: INSULIN LANTUS 100 UNITS/ML 10 ML VIAL SUBQ SCH ×2 (05:20→20:32)
--- NOTE | 2018-03-30 06:49 | NUR ---
PATIENT INCONTINENT OF LARGE AMOUNT OF URINE. MORNING CARE RENDERED. PERINEAL CARE GIVEN. KEEP SKIN DRY AND CLEAN. CHANGED GOWN AND LINENS. REPOSITIONED PATIENT FOR COMFORT. HOB AT 30 DEGREES WITH BED IN LOWEST POSITION. NEEDS MET AT THIS TIME.
--- NOTE | 2018-03-30 07:08 | NUR ---
ENDORSED CONTINUITY OF CARE TO KATT RN FOR CONTINUITY OF CARE.
--- NOTE | 2018-03-30 07:09 | NUR ---
RECEIVED REPORT FROM MEASUREMENT ADVISOR NURSE AT BEDSIDE, PT IS AAOX2, DELAYED SPEECH NOTED, ABLE TO FOLLOW COMMANDS, VSS, FLACC 0, NO S/S OF DISTRESS, CLEAR LUNG SOUNDS MARILYN. ON RA, O2 SAT 95%, DENIES CHEST PAIN, A-FIB ON WASTE HANDLING TECHNICIAN, SOFT ABDOMEN WITH ACTIVE BOWEL SOUNDS, INCONTINENT WITH B&B'S, SEVERE WEAKNESS TO LEFT SIDE NOTED, SKIN IS INTACT, WARM AND DRY TO TOUCH, IV SITE TO LFA 20GA, AND RFA 20GA, PATENT, RUNNING HEPARIN AT 1300 UNITS/HR AND D5 1/2 NS AT 75 ML/HR, HOB ELEVATED 30 DEGREES, SAFETY MEASURES IN PLACE, CALL LIGHT WITHIN REACH, WILL CONTINUE TO MONITOR.
--- NOTE | 2018-03-30 07:30 | NUR ---
accu check with result of 231mg/dl, Humalog 4 units given per sliding scale.
[2018-03-30 08:29] LABS: BASOPHILS % (AUTO) 0.4 % (0.0-2.0); EOSINOPHILS # (AUTO) 0.2 K/uL (0-0.4); EOSINOPHILS % (AUTO) 2.2 % (0.0-4.0); HEMATOCRIT 40.3 % (36-52); HEMOGLOBIN 12.3 g/dL (12.0-18.0); LYMPHOCYTES # (AUTO) 3.4 K/uL (2.0-11.5); LYMPHOCYTES % (AUTO) 39.7 % (20.5-51.1); MEAN CORPUSCULAR HEMOGLOBIN 24 pg (27-31); MEAN CORPUSCULAR HGB CONC 31 g/dL (33-37); MEAN CORPUSCULAR VOLUME 78.9 fL (80-94); MONOCYTES # (AUTO) 0.6 K/uL (0.8-1.0); MONOCYTES % (AUTO) 7.1 % (1.7-9.3); NEUTROPHILS # (AUTO) 4.4 K/uL (1.8-7.7); NEUTROPHILS % (AUTO) 50.6 % (42.2-75.2); PLATELET COUNT (AUTO) 134 K/uL (140-450); RED CELL DISTRIBUTION WIDTH 15.7 % (11.6-13.7); WHITE BLOOD COUNT (AUTO) 8.7 K/uL (4.8-10.8)
[2018-03-30 08:56] LABS: MAGNESIUM 1.5 mg/dL (1.8-2.4); PHOSPHORUS 1.9 mg/dL (2.5-4.9)
--- NOTE | 2018-03-30 09:00 | NUR ---
SCHEDULED MEDICATION GIVEN, PT IS ABLE TO SWALLOW PILLS WHOLE, TOLERATED WELL.
[2018-03-30] MEDS: ASPIRIN 81 MG TAB.CHEW PO SCH (09:15)
[2018-03-30] MEDS: BENAZEPRIL 5 MG TAB PO SCH (09:15)
[2018-03-30] MEDS: OXYBUTYNIN 5 MG TAB PO SCH (09:16)
[2018-03-30] MEDS: GABAPENTIN 300 MG CAP PO SCH ×2 (09:16→20:26)
[2018-03-30] MEDS: METOPROLOL SUCCINATE 50 MG TABER PO SCH (09:16)
[2018-03-30] MEDS: NACL 0.45% 1,000 ML IV SCH ×2 (09:17→23:09)
[2018-03-30] MEDS ORDERED: MAG SULF 2000 MG/WATER PREMIX 100 ML IV ONE (10:00)
[2018-03-30 10:14] LABS: CARBON DIOXIDE 23.6 mmol/L (21-32); CREATININE 0.8 mg/dL (0.7-1.3); GLUCOSE 232 mg/dL (74-106); UREA NITROGEN, BLOOD 12 mg/dL (7-18)
--- NOTE | 2018-03-30 10:15 | NUR ---
DR. LEE CAME IN TO SEE PT AT BEDSIDE, WILL FOLLOW UP WITH NEW ORDER.
[2018-03-30] MEDS ORDERED: MAGNESIUM SULFATE 4GM in STERILE WATER 100 ML PREMIX IV SCH (11:00)
[2018-03-30] MEDS ORDERED: SODIUM PHOS / POTASSIUM PHOS 1 PKT PDR PO SCH (11:00)
--- NOTE | 2018-03-30 11:00 | NUR ---
PTT RESULT 123.3, HOLD HEPARIN DRIP AT THIS TIME PER PROTOCOL.
[2018-03-30 11:03] LABS: ANION GAP 12.5 (8-16); CHLORIDE 111 mmol/L (98-107); POTASSIUM 4.1 mmol/L (3.5-5.1); SODIUM SERUM 143 mmol/L (136-145)
[2018-03-30] MEDS: INSULIN LISPRO SLIDING SCALE 100 UNITS/ML VIAL SUBQ PRN ×3 (11:20→20:32)
--- NOTE | 2018-03-30 11:29 | NUR ---
accu check with result of 268mg/dl, 6 units of Humalog given.
--- NOTE | 2018-03-30 12:00 | NUR ---
WATCHING TV, NO S/S OF DISTRESS, VSS, DENIES PAIN, POSITION CHANGED FOR OFF LOAD PRESSURE.
--- NOTE | 2018-03-30 13:55 | NUR ---
Received pt from ICU to room 105A via ICU bed, report given by Ani ICU nurse. Pt transferred from bed to bed with 4-person total assist. Pt awake, verbal with delayed response, respirations even & nonlabored in room air. LUE & LLE flaccid, RUE & RLE mild weakness. Right ac IV asypmtomatic with ongoing 1/2 NS @ 75ml/hr. Left ac IV saline lock intact & asymptomatic. Pt oriented to room & unit. Able to return demonstrate proper use of call button. Will continue to monitor.
--- NOTE | 2018-03-30 13:55 | NUR ---
PT TRANSFERRED TO TELEMETRY ROOM 105A VIA BED ACCOMPANIED WITH RN, ALL BELONGS GOES WITH PT, REPORT GIVEN TO KAYLEE NOBLE AT BEDSIDE, VSS, DENIES PAIN, NO ACCIDENT AT THIS TIME.
--- NOTE | 2018-03-30 15:15 | NUR ---
Pt asleep in bed, respirations even & nonlabored in room air, FLACC 0. Right ac IV asymptomatic with ongoing 1/2 NS @ 75 ml/hr. Call light within reach.
--- NOTE | 2018-03-30 17:30 | NUR ---
Pt in high fowlers in bed, eating dinner with max assist by DIRECTOR STRATEGIC PLANNING. No signs of aspiration observed. No c/o discomfort.
--- NOTE | 2018-03-30 19:10 | NUR ---
Report given to pm nurse Sriram.
--- NOTE | 2018-03-30 19:15 | NUR ---
RECEIVED PT ON BED WATCHING TV, AAOX2, SLIGHTLY DELAYED SPEECH BUT ABLE TO MAKE NEEDS KNOW, WITH LEFT HEMIPARESIS DUE TO HX OF CVA, VITAL SIGNS STABLE, DENIES ANY PAIN, NO SOB NOTED, IVF INFUSING WELL, PLAN OF CARE DISCUSSED, SAFETY MEASURES IN PLACE, SIDE RAILS UP AND BED ALARM, WILL REPOSITION Q2H AND OFFLOAD PRESSURE AREAS, CALL LIGHT WITHIN REACH.
[2018-03-30] MEDS: ATORVASTATIN 20 MG TAB PO SCH (20:26)
[2018-03-30] MEDS: MIRTAZAPINE 15 MG TAB PO SCH (20:26)
--- NOTE | 2018-03-30 20:30 | NUR ---
BLOOD SUGAR CHECKED WITH 294 RESULT, COVERAGE GIVEN , SNACK PROVIDED WITH GOOD APPETITE, DUE MEDS ADMINISTERED, ALL NEEDS ATTENDED.
--- NOTE | 2018-03-30 21:50 | NUR ---
PT INCONTINENT OF URINE, PERINEAL CARE DONE BY INSIDE SALES AGENT, REPOSITIONED Q2H AND OFFLOAD PRESSURE AREAS, MONITORED CLOSELY.
--- NOTE | 2018-03-30 23:35 | NUR ---
PT SLEEPING, EASILY AROUSABLE, VITAL SIGNS STABLE, DENIES PAIN, NO SOB NOTED, IVF INFUSING WELL, PT WENT BACK TO SLEEP, CONTINUE TO MONITOR CLOSELY.
[2018-03-31] VITALS: BP 131/56
--- NOTE | 2018-03-31 03:40 | NUR ---
PT SLEEPING, EASILY AROUSABLE, VITAL SIGNS STABLE, NO SIGNS OF PAIN OR SOB, IVF INFUSING WELL, MONITORED CLOSELY.
[2018-03-31 04:00] VITALS: BP 125/59
[2018-03-31] MEDS: INSULIN LISPRO SLIDING SCALE 100 UNITS/ML VIAL SUBQ PRN ×4 (06:00→20:40)
--- NOTE | 2018-03-31 06:00 | NUR ---
PT REFUSED AM LAB DRAW, RISK AND BENEFITS EXPLAINED BUT PT STILL REFUSING, BLOOD SUGAR CHECKED WITH 271 RESULT, COVERAGE GIVEN, PT ASSISTED IN AM CARE, TOLERATED WELL, MONITORED CLOSELY.
[2018-03-31] MEDS: BLOOD GLUCOSE MONITORING 1 DEV DEV FS SCH ×4 (06:31→20:40)
--- NOTE | 2018-03-31 07:20 | NUR ---
PT SLEEPING, NO DISTRESS NOTED, REPORT GIVEN TO RN DAILY FOR CONTINUITY OF CARE.
--- NOTE | 2018-03-31 07:30 | NUR ---
RECEIVED PT ON BED AAOX2, WITH PERIODS OF CONFUSION. NO SOB NOTED. NO SIGNS OF PAIN AT THIS TIME. IV TO RT AND LT FA PATENT AND INTACT. CHEST, DIMINISHED AIR ENTRY TO THE BASES, OTHERWISE CLEAR. ABDOMEN SOFT. BOWEL SOUNDS PRESENT. WITH LT SIDED WEAKNESS NOTED. WILL REPOSITION PT EVERY 2 HRS. BED ON LOW POSITION, CALL LIGHT WITHIN REACH, PT VERBALIZED UNDERSTANDING.
[2018-03-31 08:13] VITALS: BP 158/65
[2018-03-31 08:31] LABS: BASOPHILS # (AUTO) 0.1 K/uL (0.00-0.22); BASOPHILS % (AUTO) 1.3 % (0.0-2.0); EOSINOPHILS # (AUTO) 0.3 K/uL (0-0.4); EOSINOPHILS % (AUTO) 4.4 % (0.0-4.0); HEMATOCRIT 43.4 % (36-52); HEMOGLOBIN 13.4 g/dL (12.0-18.0); LYMPHOCYTES # (AUTO) 2.8 K/uL (2.0-11.5); LYMPHOCYTES % (AUTO) 40.7 % (20.5-51.1); MEAN CORPUSCULAR HEMOGLOBIN 24 pg (27-31); MEAN CORPUSCULAR HGB CONC 31 g/dL (33-37); MEAN CORPUSCULAR VOLUME 79.2 fL (80-94); MONOCYTES # (AUTO) 0.5 K/uL (0.8-1.0); MONOCYTES % (AUTO) 7.2 % (1.7-9.3); NEUTROPHILS # (AUTO) 3.2 K/uL (1.8-7.7); NEUTROPHILS % (AUTO) 46.4 % (42.2-75.2); PLATELET COUNT (AUTO) 127 K/uL (140-450); RED BLOOD CELL COUNT(AUTO) 5.48 MIL/uL (4.20-6.10); RED CELL DISTRIBUTION WIDTH 15.5 % (11.6-13.7); WHITE BLOOD COUNT (AUTO) 6.9 K/uL (4.8-10.8)
[2018-03-31] MEDS: ASPIRIN 81 MG TAB.CHEW PO SCH (08:58)
[2018-03-31] MEDS: OXYBUTYNIN 5 MG TAB PO SCH (08:59)
[2018-03-31] MEDS: BENAZEPRIL 5 MG TAB PO SCH (08:59)
[2018-03-31] MEDS: METOPROLOL SUCCINATE 50 MG TABER PO SCH (09:00)
[2018-03-31] MEDS: GABAPENTIN 300 MG CAP PO SCH ×2 (09:00→20:34)
[2018-03-31 09:10] LABS: ANION GAP 12.1 (8-16); CARBON DIOXIDE 25.1 mmol/L (21-32); CHLORIDE 110 mmol/L (98-107); CREATININE 0.9 mg/dL (0.7-1.3); GLUCOSE 247 mg/dL (74-106); POTASSIUM 3.2 mmol/L (3.5-5.1); SODIUM SERUM 144 mmol/L (136-145); UREA NITROGEN, BLOOD 11 mg/dL (7-18)
[2018-03-31 09:13] LABS: MAGNESIUM 1.7 mg/dL (1.8-2.4); PHOSPHORUS 2.6 mg/dL (2.5-4.9)
--- NOTE | 2018-03-31 10:00 | NUR ---
pt turned every 2 hrs, tolerated positioning well.
[2018-03-31] MEDS ORDERED: LEVEMIR SUBQ (10:10)
[2018-03-31] MEDS ORDERED: RIVA20TA PO (10:10)
[2018-03-31] MEDS ORDERED: MAG SULF 2000 MG/WATER PREMIX 50 ML IV SCH (10:30)
[2018-03-31] MEDS ORDERED: POTASSIUM CHLORIDE 10 MEQ TABER PO SCH (10:30)
[2018-03-31] MEDS: NACL 0.45% 1,000 ML IV SCH (11:30)
[2018-03-31] MEDS ORDERED: POTASSIUM CHLORIDE 20% 40 MEQ/15 ML UDC PO SCH (11:30)
[2018-03-31 12:00] VITALS: BP 160/58
--- NOTE | 2018-03-31 12:25 | NUR ---
pt consumed 100% of breakfast and lunch fed by ELECTRIC LOCOMOTIVE FIRER/FIREMAN, food tolerated well.
--- NOTE | 2018-03-31 15:15 | NUR ---
pt awake, talking to his brother at the bedside. no SOB noted. no complaints made.
[2018-03-31 16:00] VITALS: BP 142/54
--- NOTE | 2018-03-31 18:05 | NUR ---
pt fed, consumed 80% of dinner served, food tolerated well.
--- NOTE | 2018-03-31 19:06 | NUR ---
PT RESTING. NO SOB NOTED. NO SIGNS OF PAIN AT THIS TIME. WILL ENDORSE TO NEXT SHIFT NURSE FOR CONTINUITY OF CARE.
[2018-03-31 20:00] VITALS: BP 110/69
[2018-03-31] MEDS: ATORVASTATIN 20 MG TAB PO SCH (20:34)
[2018-03-31] MEDS: MIRTAZAPINE 15 MG TAB PO SCH (20:34)
[2018-03-31] MEDS ORDERED: INSULIN LANTUS 100 UNITS/ML 10 ML VIAL SUBQ SCH ×2 (21:00)
[2018-03-31] MEDS ORDERED: metFORMIN 500 MG TAB PO SCH (21:00)
--- NOTE | 2018-03-31 22:10 | NUR ---
PT INCONTINENT OF URINE, PERINEAL CARE DONE, REPOSITIONED Q2H AND OFFLOAD PRESSURE AREAS, MONITORED CLOSELY.
[2018-04-01] VITALS: BP 150/71
--- NOTE | 2018-04-01 | NUR ---
PT SLEEPING, EASILY AROUSABLE, VITAL SIGNS TAKEN, BP SLIGHTLY ELEVATED, DENIES PAIN, NO SOB NOTED, IVF INFUSING WELL, CONTINUE TO MONITOR CLOSELY.
[2018-04-01] MEDS: NACL 0.45% 1,000 ML IV SCH ×2 (01:07→13:20)
--- NOTE | 2018-04-01 03:50 | NUR ---
PT SLEEPING, EASILY AROUSABLE, VITAL SIGNS TAKEN, BP SLIGHTLY ELEVATED, ASYMPTOMATIC, DENIES PAIN OR SOB, MONITORED CLOSELY.
[2018-04-01 04:00] VITALS: BP 152/93
--- NOTE | 2018-04-01 05:50 | NUR ---
AM LABS DRAWN, BLOOD SUGAR CHECKED WITH 155 RESULT, WILL GIVE COVERAGE, MONITORED CLOSELY.
[2018-04-01] MEDS: INSULIN LISPRO SLIDING SCALE 100 UNITS/ML VIAL SUBQ PRN ×3 (06:19→17:03)
[2018-04-01 06:21] LABS: BASOPHILS % (AUTO) 0.5 % (0.0-2.0); EOSINOPHILS # (AUTO) 0.3 K/uL (0-0.4); EOSINOPHILS % (AUTO) 3.9 % (0.0-4.0); HEMATOCRIT 40.4 % (36-52); HEMOGLOBIN 12.6 g/dL (12.0-18.0); LYMPHOCYTES # (AUTO) 2.7 K/uL (2.0-11.5); LYMPHOCYTES % (AUTO) 39.7 % (20.5-51.1); MEAN CORPUSCULAR HEMOGLOBIN 25 pg (27-31); MEAN CORPUSCULAR HGB CONC 31 g/dL (33-37); MEAN CORPUSCULAR VOLUME 78.4 fL (80-94); MONOCYTES # (AUTO) 0.6 K/uL (0.8-1.0); MONOCYTES % (AUTO) 8.1 % (1.7-9.3); NEUTROPHILS # (AUTO) 3.2 K/uL (1.8-7.7); NEUTROPHILS % (AUTO) 47.8 % (42.2-75.2); PLATELET COUNT (AUTO) 138 K/uL (140-450); RED BLOOD CELL COUNT(AUTO) 5.15 MIL/uL (4.20-6.10); RED CELL DISTRIBUTION WIDTH 15.2 % (11.6-13.7); WHITE BLOOD COUNT (AUTO) 6.8 K/uL (4.8-10.8)
--- NOTE | 2018-04-01 06:40 | NUR ---
PT HAD NO BM FOR SEVERAL DAYS, COLACE GIVEN PRN FOR CONSTIPATION, PRUNE JUICE PROVIDED, WILL ENDORSE TO NEXT SHIFT.
[2018-04-01] MEDS: BLOOD GLUCOSE MONITORING 1 DEV DEV FS SCH ×3 (06:48→16:34)
--- NOTE | 2018-04-01 07:18 | NUR ---
RECEIVED PATIENT REPORT AT BEDSIDE. PATIENT IS AWAKE AND ALERT. NO S/S OF DISTRESS NOTED. PATIENT ON ROOM AIR. NO C/O PAIN AT THIS TIME. PATIENT ON TELE MONITORING. FALL PRECAUTIONS IN PLACE. WILL CONTINUE TO MONITOR
--- NOTE | 2018-04-01 07:18 | NUR ---
PT AWAKE, NO DISTRESS NOTED, REPORT GIVEN TO KAYLEE CUELLAR FOR CONTINUITY OF CARE.
[2018-04-01 07:36] LABS: ANION GAP 14.7 (8-16); CARBON DIOXIDE 21.9 mmol/L (21-32); CHLORIDE 110 mmol/L (98-107); CREATININE 0.8 mg/dL (0.7-1.3); GLUCOSE 192 mg/dL (74-106); POTASSIUM 3.6 mmol/L (3.5-5.1); SODIUM SERUM 143 mmol/L (136-145); UREA NITROGEN, BLOOD 11 mg/dL (7-18)
[2018-04-01 07:39] VITALS: BP 153/95
[2018-04-01 07:42] LABS: MAGNESIUM 1.7 mg/dL (1.8-2.4); PHOSPHORUS 2.5 mg/dL (2.5-4.9)
[2018-04-01] MEDS ORDERED: RIVAROXABAN 10 MG TAB PO SCH (09:00)
[2018-04-01] MEDS ORDERED: BENA20TA PO (09:21)
[2018-04-01] MEDS ORDERED: ASPI81CT95 PO (09:21)
[2018-04-01] MEDS ORDERED: GLUC-805 FS (09:21)
[2018-04-01] MEDS ORDERED: HUMSLIDE SUBQ (09:21)
[2018-04-01] MEDS ORDERED: LANTUS SUBQ (09:21)
[2018-04-01] MEDS ORDERED: MAGNESIUM OXIDE 400 MG TAB PO SCH (09:30)
--- NOTE | 2018-04-01 09:38 | NUR ---
PATIENT GIVEN BED BATH. PATIENT TURNED AND REPOSITIONED FOR COMFORT. PT TOLERATED WELL
[2018-04-01] MEDS: METOPROLOL SUCCINATE 50 MG TABER PO SCH (09:43)
[2018-04-01] MEDS: metFORMIN 500 MG TAB PO SCH ×2 (09:43→16:59)
[2018-04-01] MEDS: GABAPENTIN 300 MG CAP PO SCH (09:43)
[2018-04-01] MEDS: ASPIRIN 81 MG TAB.CHEW PO SCH (09:43)
[2018-04-01] MEDS: OXYBUTYNIN 5 MG TAB PO SCH (09:44)
[2018-04-01] MEDS: BENAZEPRIL 5 MG TAB PO SCH (09:44)
[2018-04-01 12:17] VITALS: BP 145/68
--- NOTE | 2018-04-01 12:23 | NUR ---
CALLED [facility] SPOKE WITH LUIS ,NOTIFIED HER THAT PATIENT HAS A D/C ORDER NEEDS A ROOM . SHE PROVIDED PATIENT CAN GO TO 15A. ARRANGED TRANSPORT WITH [facility] , SKIP HOIST ENGINEER TIME WILL BE 8580 . ALISA PAGE AWARE.
[2018-04-01 16:16] VITALS: BP 156/77
--- NOTE | 2018-04-01 16:23 | NUR ---
GAVE PATIENT REPORT TO JEREMIAH AT [facility].
--- NOTE | 2018-04-01 17:50 | NUR ---
PATIENT PICKED UP BY [facility]. PATIENT DISCHARGED BACK TO [facility]. IV LINE DISCONTINUED, TELE MONITOR TAKEN OFF. DISCHARGE INSTRUCTIONS GIVEN. PATIENT LEFT WITH ALL HIS DISCHARGE PAPERS AND BELONGINGS. PATIENT LEFT IN STABLE CONDITION
--- NOTE | 2018-04-02 09:16 | NUR ---
[employer] Salesperson Note: I faxed patient's medical information to Lucio Dobson.
== END 2018-04-01 17:50 | DRG 280 ==
LOC: MED 16:31 → MTU 18:43 → MIC 19:20 → MTU 03-30 13:35
PROVIDERS: ADMIT Family Medicine; ATTEND Family Medicine
DX: I21.A1 Myocardial infarction type 2 (principal); E11.10 Type 2 diabetes mellitus with ketoacidosis without coma; N17.0 Acute kidney failure with tubular necrosis; G93.41 Metabolic encephalopathy; E11.00 Type 2 diabetes mellitus with hyperosmolarity without nonketotic hyperglycemic-hyperosmolar coma (NKHHC); I69.354 Hemiplegia and hemiparesis following cerebral infarction affecting left non-dominant side; E87.0 Hyperosmolality and hypernatremia; I48.91 Unspecified atrial fibrillation; E83.42 Hypomagnesemia; N31.9 Neuromuscular dysfunction of bladder, unspecified; E86.1 Hypovolemia; E11.9 Type 2 diabetes mellitus without complications; E11.40 Type 2 diabetes mellitus with diabetic neuropathy, unspecified; I11.9 Hypertensive heart disease without heart failure; F32.9 Major depressive disorder, single episode, unspecified; I69.320 Aphasia following cerebral infarction; E78.5 Hyperlipidemia, unspecified; E87.6 Hypokalemia; Z79.01 Long term (current) use of anticoagulants; Z74.01 Bed confinement status; Z79.4 Long term (current) use of insulin; Z79.84 Long term (current) use of oral hypoglycemic drugs; Z79.899 Other long term (current) drug therapy
CPT/HCPCS: 36415; 36600; 70450; 71045; 80048; 80053; 80305; 81003; 82009; 82150; 82803; 82948; 83036; 83605; 83690; 83735; 83880; 84100; 84439; 84443; 84484; 85025; 85610; 85730; 87081; 93005; 96361; 96374; 96375; 99285; C1758; J1644; J1815; J3475; J3480; J3490; J7030

== ENCOUNTER 2019-10-12 13:48 | Inpatient (IN) | payer OTHER, SELFPAY ==
[2019-10-12] VITALS (21 sets, daily range): BP systolic 32–119; BP diastolic 15–78
[~2019-10-12] VITALS: Ht 188 cm; Wt 90.7 kg
[~2019-10-12 13:48] MED LIST changes: +ASPI81CT95 PO; +ATOR40TA PO; +DIT5 PO; +GABA-638 PO; +GLUC-805 FS; +HUMSLIDE SUBQ; +LANTUS SUBQ; +METF1000 PO; +METO25TE2 PO; +MIRT15TA PO; +RIVA20TA PO; -WARF2TAB79 PO
--- NOTE | 2019-10-12 13:53 | NUR ---
PATIENT BIBA TO BED 1 AT THIS TIME
--- NOTE | 2019-10-12 14:00 | NUR ---
dr brown at bedside evaluating pt.
[2019-10-12] MEDS ORDERED: NACL 0.9% 500 ML IV ONE (14:05)
--- NOTE | 2019-10-12 14:08 | NUR ---
PT IS CONFIRMED COVID +
[2019-10-12] MEDS ORDERED: ACETAMINOPHEN 650 MG SUPP RC ONE (14:10)
[2019-10-12 14:41] LABS: BASOPHILS # (AUTO) 0.1 K/uL (0.00-0.22); BASOPHILS % (AUTO) 1.7 % (0.0-2.0); EOSINOPHILS % (AUTO) 0.1 % (0.0-4.0); HEMATOCRIT 46.1 % (36-52); HEMOGLOBIN 14.4 g/dL (12.0-18.0); LYMPHOCYTES # (AUTO) 0.4 K/uL (2.0-11.5); LYMPHOCYTES % (AUTO) 6.9 % (20.5-51.1); MEAN CORPUSCULAR HEMOGLOBIN 24 pg (27-31); MEAN CORPUSCULAR HGB CONC 31 g/dL (33-37); MONOCYTES # (AUTO) 0.4 K/uL (0.8-1.0); MONOCYTES % (AUTO) 7.3 % (1.7-9.3); NEUTROPHILS # (AUTO) 4.4 K/uL (1.8-7.7); PLATELET COUNT (AUTO) 246 K/uL (140-450); RED BLOOD CELL COUNT(AUTO) 5.91 MIL/uL (4.20-6.10); RED CELL DISTRIBUTION WIDTH 16.1 % (11.6-13.7); WHITE BLOOD COUNT (AUTO) 5.3 K/uL (4.8-10.8)
--- NOTE | 2019-10-12 14:50 | NUR ---
xraqy at bedside.
[2019-10-12 15:02] LABS: ALBUMIN 2.5 g/dL (3.4-5.0); ANION GAP 25.5 (8-16); ASPARTATE AMINOTRANSFERASE 19 U/L (15-37); CARBON DIOXIDE 17.1 mmol/L (21-32); CHLORIDE 111 mmol/L (98-107); GLUCOSE 243 mg/dL (74-106); POTASSIUM 4.6 mmol/L (3.5-5.1); SODIUM SERUM 149 mmol/L (136-145); TOTAL BILIRUBIN 0.7 mg/dL (0.0-1.0); UREA NITROGEN, BLOOD 45 mg/dL (7-18)
[2019-10-12 15:26] LABS: RSV NEGATIVE (NEGATIVE)
[2019-10-12 15:44] LABS: APPEARANCE,URINE HAZY (CLEAR); COLOR,URINE AMBER (YELLOW)
[2019-10-12 15:45] LABS: BILIRUBIN,URINE 1+ (NEGATIVE); BLOOD, URINE 3+ (NEGATIVE); LEUKOCYTE ESTERASE ,URINE 1+ (NEGATIVE); NITRITE, URINE NEGATIVE (NEGATIVE); UGLUCOSE NEGATIVE (NEGATIVE)
[2019-10-12 15:45] LABS: LACTATE DEHYDROGENASE 243 U/L (85-227)
[2019-10-12] MEDS ORDERED: ASPIRIN 600 MG SUPP RC ONE (15:45)
[2019-10-12] MEDS ORDERED: PIPERACILLIN/TAZOBACTAM 3.375 GM in DEXTROSE 5% 50 ML IV ONE (15:45)
[2019-10-12] MEDS ORDERED: AZITHROMYCIN 500 MG in DEXTROSE 5% 250 ML IV ONE (15:45)
[2019-10-12] MEDS ORDERED: NACL 0.9% 1,000 ML IV ONE (15:45)
[2019-10-12 15:46] LABS: WBC,URINE 0-5 /HPF (0-5)
[2019-10-12] MEDS ORDERED: AZITHROMYCIN 500 MG INJ VIAL IV ONE (15:47)
[2019-10-12] MEDS ORDERED: PIPERACILLIN/TAZOBACTAM 3.375 GM VIAL IV ONE (15:47)
--- NOTE | 2019-10-12 16:00 | NUR ---
dr brown at bedside reevaluating pt.
[2019-10-12 16:15] LABS: C-REACTIVE PROTEIN QUANT 35.1 mg/dL (0.0-0.9)
[2019-10-12] MEDS ORDERED: INTUBATION KIT MC ONE (16:21)
--- NOTE | 2019-10-12 16:32 | NUR ---
john balbuena ,rt at bedside started to intubate pt .with stable bp , snt . 94 percint o2 sat.
--- NOTE | 2019-10-12 16:32 | NUR ---
etomidate 100mg ivp ,10ml and succinylcholine 5ml ivp given . verbal order read back by dr brown.
[2019-10-12] MEDS ORDERED: PROPOFOL 200 MG/20 ML VIAL IV ONE (16:50)
[2019-10-12] MEDS ORDERED: fentaNYL citrate 0.05 MG/ML VIAL IVP ONE (16:50)
[2019-10-12 16:52] LABS: PROTHROMBIN TIME 12.2 secs (10.8-13.4)
[2019-10-12] MEDS ORDERED: LEVALBUTEROL 0.63 MG/3 ML NEBU INH ONE (17:10)
[2019-10-12] MEDS ORDERED: MORPHINE SULFATE 2 MG/ML SYR IVP PRN (17:15)
[2019-10-12] MEDS ORDERED: HYDROcodone/APAP 5/325 MG 1 TAB TAB PO PRN (17:15)
[2019-10-12] MEDS ORDERED: POTASSIUM CHLORIDE 10 MEQ TABER PO PRN (17:15)
[2019-10-12] MEDS ORDERED: ZOLPIDEM 5 MG TAB PO PRN (17:15)
[2019-10-12] MEDS ORDERED: ACETAMINOPHEN 325 MG TAB PO PRN (17:15)
[2019-10-12] MEDS ORDERED: ONDANSETRON 4 MG/2 ML VIAL IM/IVP PRN (17:15)
[2019-10-12] MEDS ORDERED: DOCUSATE SODIUM 100 MG GELCAP PO PRN (17:15)
[2019-10-12] MEDS ORDERED: NACL 0.9% 1,000 ML IV SCH (17:20)
[2019-10-12] MEDS ORDERED: DEXAMETHASONE 10 MG/ML VIAL IVP ONE (17:20)
[2019-10-12] MEDS ORDERED: ALBUTEROL HFA MDI 90 MCG/ACTUATION 8 GM INH PRN (17:30)
[2019-10-12 17:49] LABS: CHOL/HDL RATIO 1.8 (1-4.5); MAGNESIUM 2.2 mg/dL (1.8-2.4); PHOSPHORUS 3.1 mg/dL (2.5-4.9); THYROID STIMULATING HORMONE 1.38 uIU/mL (0.34-3.74)
--- NOTE | 2019-10-12 18:00 | NUR ---
RN MELA INSERTED NG TUBE .
--- NOTE | 2019-10-12 18:07 | NUR ---
message left for Dr Baron (ID) per Dr Ernst to notify him of consult
[2019-10-12] MEDS ORDERED: SUCCINYLCHOLINE CHLORIDE 200 MG/10 ML VIAL IVP ONE (18:30)
[2019-10-12] MEDS ORDERED: ETOMIDATE 20 MG/10 ML VIAL IVP ONE (18:30)
--- NOTE | 2019-10-12 18:38 | NUR ---
KAYLEE PLAZA CHECK MED RECONCILE.
--- NOTE | 2019-10-12 19:15 | NUR ---
Patient will be admitted to care of DR SMITH. Admited to ICU. Will go to room 01. Belongings list completed. Report to elvin decker.
--- NOTE | 2019-10-12 19:15 | NUR ---
RECEIVED REPORT FROM ER NURSE, ALIS. PT TRANSFERRED TO ICU 1 VIA GURNEY WITHOUT INCIDENT. PT ALTERED, DOES NOT OPEN EYES TO VOICE OR PAIN BUT WITHDRAWS TO LIGHT PAIN. PERRL, BRISK 3MM. ETT TO VENT, ACVC FI02 100%, TV 450, PEEP 5, RATE 20. LUNG SOUNDS CLEAR, BREATHING LABORED, TACHYPNEIC, RESPIRATIONS IN 40's. UNCONTROLLED AFIB ON MONITOR, HR 130 BPM. BP STABLE. LEFT WRIST 20G, FLUSHED AND PATENT, SALINE LOCKED. RIGHT FOREARM, 20G, FLUSHED AND PATENT, SALINE LOCKED. SKIN WARM AND DRY, AFEBRILE, 98.8 TEMPORAL. SKIN NOT INTACT, SMALL OPEN PRESSURE WOUND TO SACRUM. PICTURE TAKEN. NGT TO LEFT NARE. ABDOMEN LARGE SOFT AND NONTENDER, BOWEL SOUNDS HYPOACTIVE. CORONADO CATHETER IN PLACE, DRAINING CLEAR YELLOW URINE. DIAPER REMOVED AND SKIN CARE PROVIDED. GENERALIZED WEAKNESS NOTED. FLACC 0. HOB 30 DEGREES, SIDERAILS UP, BED LOCKED AND IN LOWEST POSITION.
--- NOTE | 2019-10-12 19:25 | NUR ---
PT WAS RECEIVED IN ED W/ ETT SECURED 8.0 @ 26CM VT 450 PEEP 5 f 20 PT SPO2 93% PT WAS TRANSFERRED TO ICU BED 1 AND TOLERATED WELL AMBU BAG BAG AT BEDSIDE VENT PLUGGED INTO RED OUTLET Addendum: 10/12/19 at 1957 by Vasiliy Antoine Jr RT PER DR VERNON TITRATIONS WERE MADE VT 500 PEEP 10 f 30
--- NOTE | 2019-10-12 19:40 | NUR ---
AT BEDSIDE WITH RT, ER CHARGE REPORTS THAT XRAY CONFIRMED WRONG PLACEMENT OF NGT, NGT IN RIGHT BRONCHUS, TOLD TO REMOVE VERY SLOWLY. CARRIED OUT.
--- NOTE | 2019-10-12 19:53 | NUR ---
DR. HERNANDEZ IN TO ASSESS PATIENT. MD AWARE LACTIC ACID TRENDING UP. NEW ORDERS RECEIVED. WILL CARRY OUT.
[2019-10-12] MEDS ORDERED: PROPOFOL 1000 MG/100 ML PREMIX 100 ML IV ONE (19:54)
[2019-10-12] MEDS: PROPOFOL 1000 MG/100 ML PREMIX 100 ML IV PRN (20:00)
[2019-10-12] MEDS: NACL 0.9% 1,000 ML IV SCH (21:00)
[2019-10-12] MEDS ORDERED: ENOXAPARIN 100 MG/ML SYR SUBQ SCH (21:00)
--- NOTE | 2019-10-12 21:34 | NUR ---
CALLED BROTHER ON [facility] [place] [phone], UPDATED ON PT ADMISSION AND CONDITION. ANSWERED ALL QUESTIONS. PT's BROTHER AWARE THAT ONLY HE WILL BE CONTACTED FOR PT UPDATES AND FAMILY SHOULD FOLLOW UP WITH HIM IN REGARDS TO PATIENT.
--- NOTE | 2019-10-12 21:35 | NUR ---
ATTEMPTED OGT INSERTION, UNABLE TO PASS TUBE DOWN THROAT. TRIED IN RIGHT NARES, ABLE TO INSERT BUT DID NOT CONFIRM WITH AIR CHECK, MADE SECOND ATTEMPT, STILL DID NOT HEAR AIR CONFIRMATION. WILL HAVE SECOND NURSE ATTEMPT.
[2019-10-12] MEDS ORDERED: LINEZOLID 600MG PREMIX 300 ML IV SCH ×2 (21:45→22:10)
[2019-10-12] MEDS ORDERED: LACTATED RINGERS 1,000 ML IV SCH (21:45)
--- NOTE | 2019-10-12 22:05 | NUR ---
CALLED [facility] PT DOES NOT HAVE UPDATED PNEUMOCOCCAL VACCINE. WAS VACCINATED PNEUMOCOCCAL 2014
--- NOTE | 2019-10-12 22:15 | NUR ---
SECOND RN ATTEMPTED OGT/NGT INSERTION. UNABLE TO PASS TUBE DOWN THROAT. WILL TRY LATER.
[2019-10-12] MEDS ORDERED: DEXTROSE 50% 50 ML SYR IVP PRN (23:20)
[2019-10-12] MEDS: LINEZOLID 600MG PREMIX 300 ML IV SCH (23:39)
[2019-10-12] MEDS ORDERED: ENOXAPARIN 100 MG/ML SYR SUBQ ONE (23:50)
[2019-10-13] VITALS (72 sets, daily range): BP systolic 72–146; BP diastolic 43–98
[2019-10-13] MEDS: NACL 0.9% 1,000 ML IV SCH ×3 (01:32→18:12)
[2019-10-13] MEDS: PIPERACILLIN/TAZOBACTAM 2.25 GM in DEXTROSE 5% 50 ML IV SCH ×3 (01:50→17:00)
--- NOTE | 2019-10-13 01:50 | NUR ---
RT IN TO ASSESS PATIENT, DECREASED FI02 TO 70%, TOLERATING WELL. SATURATIONS 97%. PT REMAINS TACHYPNEIC. FLACC 0, RASS -3. WITHDRAWS TO PAIN.
[2019-10-13] MEDS ORDERED: PIPERACILLIN/TAZOBACTAM 2.25 GM VIAL IV ONE (02:03)
--- NOTE | 2019-10-13 03:14 | NUR ---
RT DECREASED FI02 TO 45%. BREATHING STILL LABORED, TACHYPNEIC, RESPIRATIONS IN 40's. SATURATIONS 98%. HR UNCONTROLLED AFIB ON MONITOR, OCCASIONAL PVC's NOTED. BP WITHIN RANGE. SKIN WARM/DRY, AFEBRILE.
--- NOTE | 2019-10-13 05:11 | NUR ---
SPONGE BATH PROVIDED, NO BM NOTED. CORONADO CARE AND VAP CARE PROVIDED. PT TOLERATED FAIRLY. WITHDRAWS TO SUCTIONING. AFIB ON MONITOR WITH SOME PVC's NOTED. BP STABLE, LEVOPHED NEVER STARTED. RASS -3, PROPOFOL AT 10MCG/KG/MIN. LEFT WRIST 20G PATENT, INFUSING IV FLUIDS NS @ 120ML/HR, AND RIGHT FOREARM 20G, INFUSING PROPOFOL. BED LOCKED AND IN LOWEST POSITION HOB 30 DEGREES, FLACC 0, PT STILL TACYPNEIC, RR IN 30's .WILL ENDORSE TO DAYSHIFT NURSE.
[2019-10-13 06:12] LABS: HEMATOCRIT 43.8 % (36-52); HEMOGLOBIN 13.5 g/dL (12.0-18.0); MEAN CORPUSCULAR HEMOGLOBIN 25 pg (27-31); MEAN CORPUSCULAR HGB CONC 31 g/dL (33-37); PLATELET COUNT (AUTO) 207 K/uL (140-450); RED BLOOD CELL COUNT(AUTO) 5.48 MIL/uL (4.20-6.10); RED CELL DISTRIBUTION WIDTH 16.7 % (11.6-13.7); WHITE BLOOD COUNT (AUTO) 9.1 K/uL (4.8-10.8)
[2019-10-13] MEDS: INSULIN LISPRO SLIDING SCALE 100 UNITS/ML VIAL SUBQ PRN ×3 (06:53→22:26)
[2019-10-13] MEDS: BLOOD GLUCOSE MONITORING 1 DEV DEV FS SCH ×4 (06:54→21:55)
--- NOTE | 2019-10-13 06:55 | NUR ---
ACCUCHECK COMPLETE, 319, 8 UNITS GIVEN SUBQ PER SLIDING SCALE. PT STILL NPO, NO NGT OR OGT IN PLACE.
[2019-10-13 07:15] LABS: ALBUMIN 2.2 g/dL (3.4-5.0); ASPARTATE AMINOTRANSFERASE 51 U/L (15-37); CHLORIDE 108 mmol/L (98-107); CREATININE 3.5 mg/dL (0.6-1.3); GLUCOSE 354 mg/dL (74-106); LACTATE DEHYDROGENASE 356 U/L (85-227); POTASSIUM 5.7 mmol/L (3.5-5.1); SODIUM SERUM 145 mmol/L (136-145); TOTAL BILIRUBIN 0.7 mg/dL (0.0-1.0); UREA NITROGEN, BLOOD 59 mg/dL (7-18)
--- NOTE | 2019-10-13 07:41 | NUR ---
RECEIVED INTUBATED PT WITH A 8.0 ETT SECURED @26 TEETH/GUM ON VENT. SETTINGS A/C VC 30, VT 450, PEEP 10 AND FIO2 45%. ETT IS SECURE WITH A PATENT AIRWAY. PT IS TACHYPNEIC AT THIS TIME. VENT IS PLUGGED INTO A RED OUTLET WITH ALARMS ON AND FUNCTIONING. WILL CONTINUE TO MONITOR.
--- NOTE | 2019-10-13 07:53 | NUR ---
PATIENT HAS BEEN SCREENED AND CATEGORIZED HIGH NUTRITION RISK. PATIENT WILL BE SEEN WITHIN 1-2 DAYS OF ADMISSION. 10/13/19-10/14/[address]
[2019-10-13 07:59] LABS: LYMPHOCYTES % (MANUAL) 6 % (20-46); MONOCYTES % (MANUAL) 5 % (5-12)
[2019-10-13] MEDS: PROPOFOL 1000 MG/100 ML PREMIX 100 ML IV PRN ×2 (08:12→21:02)
[2019-10-13] MEDS: LINEZOLID 600MG PREMIX 300 ML IV SCH ×2 (08:21→21:55)
[2019-10-13] MEDS: GABAPENTIN 300 MG CAP PO SCH ×2 (08:23→21:50)
[2019-10-13] MEDS: ASCORBIC ACID 500 MG TAB PO SCH (08:24)
[2019-10-13] MEDS: METOPROLOL 25 MG TAB PO SCH (08:24)
[2019-10-13] MEDS: ZINC SULF 220 MG CAP PO SCH ×3 (08:25→21:00)
[2019-10-13] MEDS: OXYBUTYNIN 5 MG TAB PO SCH (09:00)
[2019-10-13] MEDS: BENAZEPRIL 20 MG TAB PO SCH (09:00)
[2019-10-13] MEDS: VITAMIN D 400 IU TAB PO SCH (09:00)
[2019-10-13] MEDS: RIVAROXABAN 10 MG TAB PO SCH (09:00)
[2019-10-13] MEDS: ASPIRIN 81 MG TAB.CHEW PO SCH (09:00)
--- NOTE | 2019-10-13 09:55 | NUR ---
SPOKE TO ADJUSTED PEEP FROM 10 TO 8 cmH2O. PT NOT SOB SPO2 97%. NURSE MADE AWARE. WILL CONTINUE TO MONITOR.
[2019-10-13 10:17] LABS: CARBON DIOXIDE 13.7 mmol/L (21-32)
--- NOTE | 2019-10-13 11:16 | NUR ---
FUEL ASSEMBLER NOTE: Patient's Orientation Unable To Assess Information Provided By ALEA [facility] Comments SW WAS UNABLE TO MEET PATIENT AT BEDSIDE DUE TO MEDICAL CONDITION. PER ALEA, PATIENT IS ALERT/ORIENTED AT BASELINE AND IS ABLE TO MAKE NEEDS KNOWN. Industrial Retrofit Designer, Realtionship and Phone Number ADARSH FALCON [phone] Healthcare Power of Coating Operator No Does Patient Have a POLST No Identifying Problems No Social Work Triggers Is A Social Work Consult Needed No Mandate Report Filed No Explanation Of Identifying Problems PATIENT IS A 74-YEAR-OLD MALE ADMITTED FOR SEPSIS, PNA, AND COVID. PATIENT HAS PMHX OF AFIB, HTN, AND HYPERLIPEDEMIA. [facility] - [phone] Pre-Admission Level Of Functioning Status Total Care Prior Resources/Services Used In Last 12 Months [facility] Rehab/Skilled Prior DME Wheelchair Patient Had Caregiver No Home Support No Caregiver Issues Financial Issues No Known Financial Issue Factors/Needs SNF/NH Placement Explanation And Or Other Factors Affecting/Possible DC Needs PATIENT IS SKILLED AND ON A BED HOLD. Discharge Plan Comments TENTATIVE DISCHARGE PLAN IS FOR PATIENT TO RETURN TO [facility]. DC Plan Status Initiated
--- NOTE | 2019-10-13 12:30 | NUR ---
wound care nurse at bedside to evaluate Stage ll to [place]cus area, wound care provided and sponge applied by wound care nurse. Patient tolerated well. Map remains > 65 see VS.
--- NOTE | 2019-10-13 12:53 | NUR ---
Dr Wheeler notified of Lactic Acid 8.7 no additional orders given
--- NOTE | 2019-10-13 13:24 | NUR ---
PT. ADMITTED WITH LOW MARIS SCALE AT RISK, COVID POSITIVE. PT IS SEDATED, WRIST RESTRAINT IN PLACE, MULTIPLE ECCHYMOSIS TO UPPER EXTREMITIES, POSSIBLE FROM BLOOD DRAW. POC DISCUSSED WITH PRIMARY RN. INTEGUMENTARY: -COCCYX PRESSURE INJURY STAGE 2 0.8X1.2CM SUPERFICIAL DEPTH , AREA MOIST. NO ODOR WITH SURROUNDING SKIN REDNESS AND PURPLE COLOR FURTHER DAMAGE INDICATED. -BILATERAL HEELS BLANCHABLE REDNESS RECOMMENDATIONS: -CLEANSE SACRALCOCCYX WITH NS, PAT DRY, APPLY Z-GUARD AND CPVER WITH FOAM DRESSING QD AND PRN IF SOILING -TURN AND REPOSITION PATIENT Q 2H -ASSESS AND MONITOR SKIN CONDITION DURING POSITION CHANGE -OFFLOAD BILATERAL HEELS BY PLACING PILLOWS UNDER CALVES AT ALL TIMES, UNLESS OTHERWISE CONTRAINDICATED -PRESSURE REDISTRIBUTION BY PLACING PILLOWS AND OFFLOADING SACRALCOCCYX -KEEP SKIN CLEAN AND DRY AT ALL TIMES. -CONTINUE TO FOLLOW RD RECOMMENDATIONS ALL ABOVE RECOMMENDATIONS DISCUSSED WITH PRIMARY RN PLEASE CONTACT WOUND CARE NURSE FOR ANY QUESTION AND CHANGE OF WOUND CONDITION.
[2019-10-13] MEDS ORDERED: Z-GUARD PASTE TP PRN (15:20)
[2019-10-13] MEDS ORDERED: NOREPINEPHRINE 4 MG in DEXTROSE 5% 250 ML IV PRN (16:15)
--- NOTE | 2019-10-13 17:17 | NUR ---
FIO2 TITRATED TO 40%. PT SEDATED AT THIS TIME NOT IN ANY DISTRESS. VENT ALARMS ON AND FUNCTIONING. ETT IS SECURE WITH A PATENT AIRWAY.
--- NOTE | 2019-10-13 20:00 | NUR ---
RECEIVED REPORT FROM DAYSHIFT NURSE AT BEDSIDE, DIALYSIS NURSE AT BEDSIDE TO START DIALYSIS, CONSENT GIVEN. PT ETT TO VENT, ACVC FI02 40%, TV 500, RATE 30 PEEP 8. SATURATIONS 92%. LUNG SOUNDS CLEAR, VISIBLE CHEST RISE AND FALL. AFIB ON MONITOR. [facility] ALLAN CATH WITH PIGTAIL NEWLY INSERTED. LEFT WRIST 20G, FLUSHED AND PATENT, INFUSING NS @ 120ML/HR. RIGHT FOREARM 20G, INFUSING PROPOFOL 10MCG/KG/MIN (4.6MLHR). RASS -3, DRY WEIGHT 99.79 KG. PERRL, 3MM BRISK. SKIN WARM AND DRY, AFEBRILE, 96.5, TEMPORAL, SKIN NOT INTACT, SMALL OPEN PRESSURE WOUND TO SACRUM, DRESSING DRY AND INTACT. ABDOMEN LARGE AND NONTENDER, LARGE MEDIAL SCAR NOTED. BOWEL SOUNDS ARE HYPOACTIVE. CORONADO CATHETER IN PLACE, DRAINING SMALL AMOUNT CLEAR YELLOW URINE. BED LOCKED AND IN LOWEST POSITION, SIDERAILS UP. WILL CONTINUE TO MONITOR. Addendum: 10/14/19 at 0132 by Danielle Portillo RN LEVOPHED INFUSING AT [facility] PIGTAIL, 5MCG/MIN
--- NOTE | 2019-10-13 20:25 | NUR ---
SHORT RUNS OF VTACH NOTED ON MONITOR. PATIENT HAS SOME OCCASIONAL PVC's, CURRENTLY RECEIVING DIALYSIS.
--- NOTE | 2019-10-13 20:41 | NUR ---
PT RECEIVING HD IN SUPINE W/ HD NURSE AT BEDSIDE PT RECEIVED ON VC 500 PEEP 8 f 30 PT NOT IN ANY DISTRESS AT THIS TIME VENT PLUGGED INTO RED OUTLET AND AMBU BAG @ BEDSIDE
[2019-10-13] MEDS: MIRTAZAPINE 15 MG TAB PO SCH (21:00)
--- NOTE | 2019-10-13 21:30 | NUR ---
DIALYSIS COMPLETE, DIALYSIS NURSE HEPARIN LOCKED ALLAN CATH AND CHANGED DRESSING, DRY AND INTACT. OUTPUT 1,100 ML OUT. SATURATIONS IN 90's. MONITOR SHOWING OCCASIONAL PVC's. FLACC 0, SAFETY MEASURES IN PLACE.
[2019-10-13] MEDS: ATORVASTATIN 20 MG TAB PO SCH (21:50)
--- NOTE | 2019-10-13 22:05 | NUR ---
PT WOKE UP TO VOICE, OPENED EYES. ABLE TO NOD HEAD NO WHEN ASKED IF IN PAIN. ORIENTED PATIENT TO UNIT AND CAREPLAN. INCREASED PROPOFOL TO MAINTAIN RASS -3. Addendum: 10/14/19 at 0101 by Danielle Portillo RN DECREASED LEVOPHED DRIP.
--- NOTE | 2019-10-13 23:00 | NUR ---
BLOOD PRESSURE STABLE, SBP OVER 90 AND MAP WELL WITHIN RANGE (ABOVE 60). HELD LEVOPHED DRIP. WILL CONTINUE TO MONITOR.
[2019-10-14] VITALS (105 sets, daily range): BP systolic 75–158; BP diastolic 41–84
--- NOTE | 2019-10-14 00:21 | NUR ---
SKIN WARM AND DRY, AFEBRILE, PT RASS -3. PROVIDED VAP CARE, PT WITHDRAWS TO CLEANING, WILL OPEN MOUTH ON COMMAND. BP STABLE WITHOUT LEVOPHED. HOB 30 DEGREES, BED LOCKED AND IN LOWEST POSITION. SKIN AT RESTRAINT SITES ARE WITHIN RANGE. WILL CONTINUE TO MONITOR.
[2019-10-14] MEDS: PIPERACILLIN/TAZOBACTAM 2.25 GM in DEXTROSE 5% 50 ML IV SCH ×3 (00:54→17:38)
[2019-10-14] MEDS: Z-GUARD PASTE TP SCH ×2 (01:00→12:06)
[2019-10-14] MEDS: NACL 0.9% 1,000 ML IV SCH ×3 (02:32→20:00)
--- NOTE | 2019-10-14 03:15 | NUR ---
BLOOD PRESSURE STARTING TO DECREASE, IN LOW 90's AND HIGH 80's. MAP ABOVE 60, LEVOPHED ON STANDBY. MAP GOAL ABOVE 60 PER ORDER. HR NOW IN 60-70's RANGE, AFIB ON MONITOR. WILL CONTINUE CLOSE MONITORING.
--- NOTE | 2019-10-14 05:15 | NUR ---
PT ALERT TO VOICE, OPENS EYES TO PAIN. LEFT SIDED WEAKNESS NOTED. ABLE TO TRACK WITH EYES. RASS -3, PROPOFOL AT 15 MCG/KG/MIN. LEFT WRIST 20G, IVF NS INFUSING AT 120ML/HR. FLACC 0, SAFETY MEASURES IN PLACE.
[2019-10-14 05:46] LABS: BASOPHILS % (AUTO) 0.2 % (0.0-2.0); EOSINOPHILS % (AUTO) 0.1 % (0.0-4.0); HEMATOCRIT 34.6 % (36-52); LYMPHOCYTES # (AUTO) 0.8 K/uL (2.0-11.5); LYMPHOCYTES % (AUTO) 10.9 % (20.5-51.1); MEAN CORPUSCULAR HEMOGLOBIN 24 pg (27-31); MEAN CORPUSCULAR HGB CONC 32 g/dL (33-37); MONOCYTES # (AUTO) 0.3 K/uL (0.8-1.0); MONOCYTES % (AUTO) 4.5 % (1.7-9.3); NEUTROPHILS # (AUTO) 6.3 K/uL (1.8-7.7); NEUTROPHILS % (AUTO) 84.3 % (42.2-75.2); PLATELET COUNT (AUTO) 154 K/uL (140-450); RED BLOOD CELL COUNT(AUTO) 4.55 MIL/uL (4.20-6.10); RED CELL DISTRIBUTION WIDTH 15.6 % (11.6-13.7); WHITE BLOOD COUNT (AUTO) 7.5 K/uL (4.8-10.8)
[2019-10-14 06:23] LABS: ALBUMIN 1.7 g/dL (3.4-5.0); ANION GAP 17.6 (8-16); ASPARTATE AMINOTRANSFERASE 46 U/L (15-37); CARBON DIOXIDE 21.7 mmol/L (21-32); CHLORIDE 103 mmol/L (98-107); CREATININE 3.8 mg/dL (0.6-1.3); GLUCOSE 186 mg/dL (74-106); LACTATE DEHYDROGENASE 290 U/L (85-227); MAGNESIUM 1.5 mg/dL (1.8-2.4); POTASSIUM 3.3 mmol/L (3.5-5.1); SODIUM SERUM 139 mmol/L (136-145); TOTAL BILIRUBIN 0.4 mg/dL (0.0-1.0); UREA NITROGEN, BLOOD 51 mg/dL (7-18)
--- NOTE | 2019-10-14 06:50 | NUR ---
BLOOD SUGAR 148, NO COVERAGE NEEDED. WILL ENDORSE TO DAYSHIFT NURSE THAT PATIENT IS NPO SINCE ADMISSION AND NOT RECEIVING FLUIDS. EMPTIED CORONADO, ONLY 30ML OUTPUT. PT APPEARS CALM, RASS-3, NO DISTRESS NOTED. FLACC 0. HOB 30 DEGREES.
[2019-10-14 07:16] LABS: T4 (THYROXINE) 6.2 ug/dL (4.5-12.0)
--- NOTE | 2019-10-14 07:30 | NUR ---
RECEIVED BEDSIDE REPORT FROM MATERIAL PLANNING ANALYST NURSE ARMOND RN, PT SEDATED RASS -3. DRY WEIGHT 99.79KG, IV TO L WRIST 20G PATENT INTACT, INFUSING NS @ 120ML/HR, IV TO R HAND 20G PATENT INTACT, INFUSING PROPOFOL AT 15MCG/KG/MIN, RIJ ALLAN CATH WITH PIGTAIL, INTACT, IN PLACE, SL, PT ON ETT TO VENT, AC/PC WITH FIO2 40%, RR SET TO 30 BPM, PEEP 8, TOLERATING WELL, RR AT 30 AND PO2 AT 96%, NO SOB NOTED, EQUAL BILATERAL CHEST RISE. CORONADO CATH IN PLACE, DRAINING TO GRAVITY, BILATERAL SOFT WRIST RESTRAIN IN PLACE, NO S/S OF INJURY, INITIAL ASSESSMENT DONE, ALL SAFETY PRECAUTION MET, CALL LIGHT WITHIN REACH, WILL CONTINUE TO MONITOR.
--- NOTE | 2019-10-14 07:35 | NUR ---
PT REMAINS ON DOCUMENTED SETTINGS, ETT SECURED AND PATENT WITH NO DISTRESS AT THIS TIME. VENT PLUGGED INTO RED OUTLET, ALARMS ON AND FUNCTIONING, WILL CONTINUE TO MONITOR.
[2019-10-14] MEDS: BLOOD GLUCOSE MONITORING 1 DEV DEV FS SCH ×4 (07:42→21:50)
--- NOTE | 2019-10-14 08:10 | NUR ---
ATTEMPTED TO INSERT NGT, WILL CONFIRM WITH CXR, PT TOLERATED WELL, WILL CONTINUE TO MONITOR.
--- NOTE | 2019-10-14 08:33 | NUR ---
CHEST XRAY SHOW THAT NGT IN THE THORACIC INLET REGION, NGT TAKEN OUT, PT TOLERATED WELL, DR. ANGEL AWARE, WILL CONTINUE TO MONITOR
[2019-10-14] MEDS: ASCORBIC ACID 500 MG TAB PO SCH (09:00)
[2019-10-14] MEDS: METOPROLOL 25 MG TAB PO SCH (09:00)
[2019-10-14] MEDS: VITAMIN D 400 IU TAB PO SCH (09:00)
[2019-10-14] MEDS: OXYBUTYNIN 5 MG TAB PO SCH (09:00)
[2019-10-14] MEDS: BENAZEPRIL 20 MG TAB PO SCH (09:00)
[2019-10-14] MEDS: RIVAROXABAN 10 MG TAB PO SCH (09:00)
[2019-10-14] MEDS ORDERED: DEXAMETHASONE 4 MG/ML VIAL IVP SCH (09:00)
[2019-10-14] MEDS: ZINC SULF 220 MG CAP PO SCH ×2 (09:00→21:00)
[2019-10-14] MEDS: GABAPENTIN 300 MG CAP PO SCH ×2 (09:00→21:00)
[2019-10-14] MEDS: LINEZOLID 600MG PREMIX 300 ML IV SCH ×2 (09:09→21:57)
[2019-10-14] MEDS: PANTOPRAZOLE 40 MG INJ VIAL IVP SCH (09:09)
[2019-10-14] MEDS: DEXAMETHASONE 4 MG/ML VIAL IVP SCH (09:12)
--- NOTE | 2019-10-14 09:12 | NUR ---
DUE MEDICATION ADMINISTERED, PT TOLERATED WELL, NO DISTRESS NOTED, WILL CONTINUE TO MONITOR.
[2019-10-14] MEDS: PROPOFOL 1000 MG/100 ML PREMIX 100 ML IV PRN ×2 (10:22→18:29)
[2019-10-14] MEDS: KCL 20 MEQ/WATER INJ PREMIX 200 ML IV PRN (10:23)
[2019-10-14] MEDS: ASPIRIN 81 MG TAB.CHEW PO SCH (10:37)
[2019-10-14] MEDS ORDERED: MUPIROCIN CA NASAL 2% 1GM TUBE NS SCH (11:35)
--- NOTE | 2019-10-14 11:35 | NUR ---
RECEIVED REPORT OF POSITIVE MRSA FROM LAB, NOTIFIED DR. ANGEL, PER DR TO ORDER BACTROBAN PER PROTOCOL, WILL PUT IN ORDERS AND CONTINUE WITH ORDERS.
--- NOTE | 2019-10-14 11:59 | NUR ---
DISCHARGE PLANNING: THIS IS A 78 Y/O MALE PATIENT FROM [facility] UNDER DR. LEE, WHO WAS BROUGHT IN DUE TO HISTORY OF COVID +, RESPIRATORY FAILURE AND SEPTIC SHOCK. PAST MEDICAL HISTORY INCLUDE A FIB, HTN, CVA WITH LEFT HEMIPLEGIA, BENIGN PROSTATIC ENLARGEMENT, AND DIABETES. INITIAL DIAGNOSIS OF SEPSIS, PNA AND COVID. CURRENT LABS INCLUDE WBC 7.5, H/H 11.0/34.6, NA/K 139/3.3, BUN/CREA 51/3.8, LACTIC ACID 4.2, ALB 1.7, FIBRINOGEN AND D DIMER 3416. ON DECADRON, XARELTO, ZOSYN. LINEZOLID. ETT TO VENT, FIO2 40%, O2 SAT 99%. ON PROPOFOL DRIP. S/P RIJ ALLAN CATH PLACEMENT BY DR. JO 10/13/2019. S/P HD LAST NIGHT, 1.1 L OUT. PULMO, ID, SURG, NEPHRO CONSULTS IN PLACE. TENTATIVE DC PLAN BACK TO [facility] ONCE STABLE. Addendum: 10/15/19 at 1246 by Allie Bassett ETT TO VENT, FIO2 30%, O2 SAT 95%. ON DECADRON, ZOSYN, LINEZOLID. SEDATED WITH PROPOFOL. ON DOPAMINE DRIP. CURRENT LABS INCLUDE BUN/CREA 75/5.1, ABL 1.3. TROP 2.388. SEEN BY CARDIO AND PULMO CONSULTS. Addendum: 10/16/19 at 1150 by Allie Bassett CM ORALLY INTUBATED, FIO2 30%, O2 SAT 92%. ON DOPAMINE DRIP. SEDATED WITH PROPOFOL. ON DECADRON, ZOSYN, LINEZOLID. LACTIC ACID 5.1, D DIMER 3540. ON HEPARIN DRIP - APTT PENDING. SEEN BY AAKASH. MRSA NARES (+), E COLI URINE. Addendum: 10/20/19 at 1124 by Allie Bassett CM ETT TO VENT, FIO2 25%, O2 SAT 100%. ON HEPARIN DRIP, APTT 33.2. ON TPN. ON DECADRON, ZOSYN, LINEZOLID. BUN/CREA 52/4.2 - NEPHRO CONSULTED AND SEEN - PLAN TO DIALYZE PATIENT ON SUNDAY. SEEN BY AAKASH - CONT MECHANICAL VENTILATION, CONT HD PER PER NEPHRO. Addendum: 10/22/19 at 1159 by Allie Bassett EXTUBATED YESTERDAY ON O2 AT 2 LPM/NC. FOR SWALLOW EVALUATION. POSSIBLE DOWNGRADE TO TELE TODAY. Addendum: 10/23/19 at 1523 by Cassidy Bradford DC PLANNING: SEEN BY AAKASH PETERS EXTUBATED DOING WELL CONTINUE HEMODIALYSIS , HEPARIN DRIP AND DECADRON , CONTINUE IV ABX WITH ZYVOX AND ZOSYN , ON TPN, SWALLOWING EVAL DONE RECOMMENDED TO KEEP NPO AND ASPIRATION PRECAUTIONS AND ORAL CARE . CONTINUED TPN. DC PLAN TO GO BACK TO [facility] WHEN STABLE CM TO FOLLOW Addendum: 10/24/19 at 1645 by Cassidy Bradford DC PLANNING: DR CERVANTES PLACED G-TUBE RN TO START FEEDING. [facility] ST[facility] CM TO FOLLOW.
[2019-10-14] MEDS: CHLORHEXADINE GLUC 2% CLOTH TP SCH (12:06)
[2019-10-14] MEDS: MUPIROCIN 2% OINT 22 GM TUBE TP SCH (12:06)
--- NOTE | 2019-10-14 12:06 | NUR ---
PT BLOOD SUGAR 230, PT NPO, INSULIN PER PROTOCOL NOT GIVEN, WILL CONTINUE TO MONITOR.
--- NOTE | 2019-10-14 13:11 | NUR ---
WOUND DRESSING CHANGED, PT TOLERATED WELL, ZGUARD APPLIED, WOUND BED PUMP ATTACHED, PT RESTING, WILL CONTINUE TO MONITOR.
[2019-10-14] MEDS: MAG SULF 2000 MG/WATER PREMIX 50 ML IV PRN (13:28)
--- NOTE | 2019-10-14 13:36 | NUR ---
10/14/19 RD INITIAL ASSESSMENT COMPLETED PLEASE REFER TO NUTRITION ASSESSMENT UNDER CARE ACTIVITY FOR ESTIMATED NUTRITIONAL NEEDS. 1. IF ABLE TO INSERT NG-TUBE OR OG-TUBE CONSIDER NEPRO 1.8 @ 30 ML/HR WITH PROSOURCE BID -THIS WILL PROVIDE 1416 KCAL AND 88 GM OF PROTEIN -ADDITIONAL KCAL PROVIDED BY PROPOFOL (1.1 KCAL/ML) 2. CONSIDER TPN/PPN IF UNABLE TO INSERT TUBE FEEDING 3. RD TO FOLLOW-UP 2-3 DAYS, HIGH RISK IVONNE [address]IE [address]
--- NOTE | 2019-10-14 14:01 | NUR ---
NOTIFIED DR. ANGEL REGARDING PT AFIB, NO ANTICOAGULANT WAS ADMINISTERED DUE TO PT BEING NPO, STATED TO ORDER HEPARIN 500UNITS Q12H SUBQ, WILL PUT IN ORDER AND CONTINUE WITH ORDERS.
[2019-10-14] MEDS ORDERED: MAG SULF 2000 MG/WATER PREMIX 50 ML IV PRN (14:15)
[2019-10-14] MEDS ORDERED: KCL 20 MEQ/WATER INJ PREMIX 200 ML IV PRN (14:20)
[2019-10-14] MEDS ORDERED: hePARIN / DEXT 5% PREMIX 250 ML IV SCH (16:30)
[2019-10-14] MEDS ORDERED: HEPARIN PER PHARMACY MC PRN (16:30)
--- NOTE | 2019-10-14 16:34 | NUR ---
CALLED SHUBHAM BARRON REGARDING HEMODIALYSIS ORDER FOR TOMORROW 10/14, SHUBHAM RN, STATED UNDERSTANDING.
--- NOTE | 2019-10-14 16:40 | NUR ---
PT REMAINS ON DOCUMENTED SETTINGS, ETT SECURED AND PATENT, NO DISTRESS NOTED. VENT PLUGGED INTO RED OUTLET, ALARMS ON AND FUNCTIONING.
[2019-10-14] MEDS: hePARIN / DEXT 5% PREMIX 250 ML IV SCH (17:26)
--- NOTE | 2019-10-14 19:14 | NUR ---
ENDORSED PT TO IN FLIGHT REFUELING MANAGER NURSE FOR CONTINUOUS OF CARE.
--- NOTE | 2019-10-14 20:02 | NUR ---
RECEIVED REPORT FROM [facility] NURSE. PT ETT TO VENT, ACVC FI02 30%, TV 500, RATE 20, PEEP 8. VITAL SIGNS: HR: 54 BPM, AFIB ON MONITOR, BP: 103/58, RR-20, SATURATION 99%. RIGHT FOREARM 20G, INFUSING PROPOFOL 10MCG/KG (4.62 ML/HR) RASS -3, DRY WEIGHT 99.79 KG. LEFT WRIST 20G, INFUSING IVF NS @ 120ML/HR. RIJ ALLAN WITH PIGTAIL, INFUSING HEPARIN DRIP, 750 U/HR (7.5 ML/HR). PT ALERT TO LIGHT PAIN, OPENS EYES BRIEFLY, PERRL, BRISK 3MM, DOES NOT FOLLOW COMMANDS, ABLE TO NOD HEAD NO WHEN ASKED IF IN PAIN. CORONADO CATHETER IN PLACE, DRAINING YELLOW URINE. SKIN WARM AND DRY, AFEBRILE, NOT INTACT, SMALL OPEN SACRAL WOUND, BARRIER CREAM AND OPTIFOAM DRESSING IN PLACE. WOUND MATTRESS NOTED. BILATERAL SOFT WRIST RESTRAINTS IN PLACE, SKIN INTACT. HOB 30 DEGREES, BED LOCKED AND IN LOWEST POSITION. CONTACT AND DROPLET PRECAUTIONS IN PLACE FOR COVID + AND MRSA NARES. WILL CONTINUE TO MONITOR.
[2019-10-14] MEDS: MIRTAZAPINE 15 MG TAB PO SCH (21:00)
[2019-10-14] MEDS: ATORVASTATIN 20 MG TAB PO SCH (21:00)
--- NOTE | 2019-10-14 21:15 | NUR ---
SUGAR CHECK COMPLETE, 210, COVERED PER SLIDING SCALE. PT IS RASS -3, ALERT TO VOICE AND LIGHT PAIN, FOLLOWED SOME COMMANDS. TRACKS WITH EYES. DENIES PAIN. PROVIDED ORAL CARE. MODERATE AMOUNT OF SECRETIONS NOTED. TURNED AND REPOSITIONED PATIENT. PT TOLERATED WELL.
[2019-10-14] MEDS: INSULIN LISPRO SLIDING SCALE 100 UNITS/ML VIAL SUBQ PRN (22:56)
--- NOTE | 2019-10-14 23:40 | NUR ---
PTT DRAWN, NET MAKING SUPERVISOR GUERDA BLOOD. CHANGED HEPARIN DRIP TO PERIPHERAL SITE AND IV FLUIDS CONNECTED TO [facility] WITH PIGTAIL.
[2019-10-15] VITALS (97 sets, daily range): BP systolic 71–204; BP diastolic 40–125
--- NOTE | 2019-10-15 00:10 | NUR ---
VAP CARE PROVIDED, PATIENT HAS MODERATE AMOUNT OF SECRETIONS. RIGHT IJ CENTRAL DRESSING BECOMING LOOSE/SOILED. REINFORCED DRESSING. RIJ REMAINS INTACT. TURNED AND POSITIONED PATIENT.
[2019-10-15] MEDS: PIPERACILLIN/TAZOBACTAM 2.25 GM in DEXTROSE 5% 50 ML IV SCH ×3 (01:00→17:38)
[2019-10-15] MEDS: Z-GUARD PASTE TP SCH ×2 (01:00→15:09)
--- NOTE | 2019-10-15 02:20 | NUR ---
SKIN AND CIRCULATION INTACT AT RESTRAINT SITE. LEFT ARM NOTED WITH SEVERE WEAKNESS, PT SLIGHTLY MOVES RIGHT ARM. SPECIALTY MATTRESS IN PLACE, TURNED PATIENT TO ASSESS SACRAL WOUND. REINFORCED DRESSING AND APPLIED ZGUARD.
--- NOTE | 2019-10-15 04:15 | NUR ---
SPONGE BATH CORONADO CARE AND VAP PROTOCOL PROVIDED. TOLERATED FAIRLY. PT OPENS EYES AND ABLE TO SLIGHTLY SQUEEZE RIGHT HAND ON COMMAND. LEFT ARM IS COOL TO TOUCH, TEMPERATURE TRENDING LOW, 96.3. ASSESSED SKIN AT FEET, CIRCULATION WITHIN RANGE, CAP REFILL LESS THAN 3 SECONDS. PT DENIES PAIN. HOB 30 DEGREES, SIDERAILS UP, BED LOCKED AND IN LOW POSITION.
[2019-10-15 06:25] LABS: BASOPHILS % (AUTO) 0.1 % (0.0-2.0); HEMATOCRIT 33.5 % (36-52); HEMOGLOBIN 10.6 g/dL (12.0-18.0); LYMPHOCYTES # (AUTO) 0.6 K/uL (2.0-11.5); LYMPHOCYTES % (AUTO) 7.9 % (20.5-51.1); MEAN CORPUSCULAR HEMOGLOBIN 24 pg (27-31); MEAN CORPUSCULAR HGB CONC 32 g/dL (33-37); MEAN CORPUSCULAR VOLUME 75.9 fL (80-94); MONOCYTES # (AUTO) 0.4 K/uL (0.8-1.0); MONOCYTES % (AUTO) 5.1 % (1.7-9.3); NEUTROPHILS # (AUTO) 6.4 K/uL (1.8-7.7); NEUTROPHILS % (AUTO) 86.9 % (42.2-75.2); PLATELET COUNT (AUTO) 143 K/uL (140-450); RED BLOOD CELL COUNT(AUTO) 4.42 MIL/uL (4.20-6.10); RED CELL DISTRIBUTION WIDTH 15.7 % (11.6-13.7); WHITE BLOOD COUNT (AUTO) 7.3 K/uL (4.8-10.8)
--- NOTE | 2019-10-15 06:55 | NUR ---
PT REMAINS ON DOCUMENTED SETTINGS, ETT IS SECURED AND PATENT, NO DISTRESS NOTED. VENT PLUGGED INTO RED OUTLET, ALARMS ON AND FUNCTIONING, WILL CONTINUE TO MONITOR.
[2019-10-15 07:02] LABS: ALBUMIN 1.6 g/dL (3.4-5.0); ANION GAP 21.4 (8-16); ASPARTATE AMINOTRANSFERASE 39 U/L (15-37); CARBON DIOXIDE 19.8 mmol/L (21-32); CHLORIDE 104 mmol/L (98-107); GLUCOSE 222 mg/dL (74-106); LACTATE DEHYDROGENASE 265 U/L (85-227); MAGNESIUM 2.1 mg/dL (1.8-2.4); PHOSPHORUS 5.4 mg/dL (2.5-4.9); POTASSIUM 4.2 mmol/L (3.5-5.1); SODIUM SERUM 141 mmol/L (136-145); TOTAL BILIRUBIN 0.4 mg/dL (0.0-1.0)
[2019-10-15 07:14] LABS: HEPATITIS A ANTIBODY IGM Negative (Negative); HEPATITIS B CORE AB TOTAL Negative (Negative); HEPATITIS B SURFACE ANTIBODY Reactive (.); HEPATITIS B SURFACE ANTIGEN Negative (Negative)
--- NOTE | 2019-10-15 07:15 | NUR ---
RECEIVED WINDOW-SIDE REPORT FROM COIL MACHINE OPERATOR NURSE ARMOND FOR CONTINUITY OF CARE. PT IS LYING COMFORTABLY ON BED, FLACC 0. RESPIRATION EVEN AND UNLABORED ON ETT TO VENT, AC/VC 30%, RATE 20, PEEP 8, TIDAL VOLUME 500, SPO2 AT 96%. MELVINA LEMUS WITH PIGTAIL INFUSING IVF PER MD ORDER, R HAND 20 INFUSING PROPOFOL 9.98 MCG/KG/MIN (5.98 ML/HR) RASS -3, DRY WEIGHT 99.79 KG, AND HEPARIN DRIP ON L WRIST 20G INFUSING 500 UNIT/HR. CORONADO CATHETER IN PLACE DRAINING CLEAR YELLOW URINE. SACRAL WOUND NOTED, COVERED WITH OPTIFOAM, DRY AND CLEAN, BILATERAL SOFT WRIST RESTRAINTS IN PLACE. BED LOCKED AND IN LOW POSITION, SIDE RAILS UP. SAFETY MEASURES IN PLACE. BED IN LOW POSITION, BED LOCKED. DROPLET PRECAUTIONS IN PLACE. MARINE DIESEL MECHANIC IN PLACE.
[2019-10-15 07:19] LABS: UREA NITROGEN, BLOOD 75 mg/dL (7-18)
[2019-10-15 07:20] LABS: CREATININE 5.1 mg/dL (0.6-1.3)
--- NOTE | 2019-10-15 07:20 | NUR ---
PTT DRAWN. BLOOD SUGAR CHECKED, 171, COVERED PER SLIDING SCALE.
[2019-10-15] MEDS: PROPOFOL 1000 MG/100 ML PREMIX 100 ML IV PRN ×2 (07:25→17:40)
[2019-10-15] MEDS: BLOOD GLUCOSE MONITORING 1 DEV DEV FS SCH ×4 (07:38→20:50)
[2019-10-15] MEDS: INSULIN LISPRO SLIDING SCALE 100 UNITS/ML VIAL SUBQ PRN ×4 (07:43→20:51)
[2019-10-15] MEDS: NACL 0.9% 1,000 ML IV SCH (07:51)
--- NOTE | 2019-10-15 07:51 | NUR ---
STARTED A NEW BAG OF IVF NS AND CONTINUE INFUSING AT 120 ML/HR PER MD ORDER.
[2019-10-15] MEDS: PANTOPRAZOLE 40 MG INJ VIAL IVP SCH (08:22)
[2019-10-15] MEDS: DEXAMETHASONE 4 MG/ML VIAL IVP SCH (08:24)
[2019-10-15] MEDS: VITAMIN D 400 IU TAB PO SCH (08:28)
[2019-10-15] MEDS: ASPIRIN 81 MG TAB.CHEW PO SCH (08:28)
--- NOTE | 2019-10-15 08:28 | NUR ---
NOTIFIED DR ANGEL THAT PATIENT IS SB TO LOWEST 41, AND DR ANGEL WAS AWARE. DECREASED PROPOFOL TO 4.977 MCG/KG/MIN. ADMINISTERED SCHEDULED IVP MEDS PER MD ORDER, UNABLE TO ADMINISTER PO MEDS DUE TO UNABLE TO ESTABLISH OGT OR NGT, GI CONSULT IS PENDING AND MD WAS AWARE. PROVIDED HYGIENE CARE, ORAL CARE AND CORONADO CARE, CHG BATH. PATIENT TOLERATED WELL. LOCKSTITCH FRONT MAKER IN PLACE. SAFETY MEASURES IN PLACE.
[2019-10-15] MEDS: GABAPENTIN 300 MG CAP PO SCH ×2 (08:29→20:52)
[2019-10-15] MEDS: BENAZEPRIL 20 MG TAB PO SCH (08:29)
[2019-10-15] MEDS: OXYBUTYNIN 5 MG TAB PO SCH (08:29)
[2019-10-15] MEDS: METOPROLOL 25 MG TAB PO SCH (08:29)
[2019-10-15] MEDS: ASCORBIC ACID 500 MG TAB PO SCH (08:30)
[2019-10-15] MEDS: ZINC SULF 220 MG CAP PO SCH ×2 (08:31→20:53)
--- NOTE | 2019-10-15 08:35 | NUR ---
PER DR ANGEL, CRITICAL CARE DR ARSHAD PAGED AND CALLED BACK NOTIFIED OF BRADYCARDIA DOWN TO 39, [facility] PER DR ARSHAD.
--- NOTE | 2019-10-15 08:40 | NUR ---
DR REYES (CARDIOLOGY) PAGED
--- NOTE | 2019-10-15 08:57 | NUR ---
CALLED AND SPOKE WITH DR CERVANTES, INFORMED THAT GI CONSULT INPUT FOR PATIENT AND EXPLAINED UNABLE TO ADVANCE OGT AND NGT, DR CERVANTES WAS AWARE AND SAID HE WILL COME TO SEE PATIENT.
[2019-10-15] MEDS: DOPamine 400 MG/D5W PREMIX 250 ML IV PRN (09:08)
--- NOTE | 2019-10-15 09:10 | NUR ---
STARTED DOPAMINE AND DRIPPING AT 5 MCG/KG/MIN TO SUPPORT SB.
--- NOTE | 2019-10-15 09:15 | NUR ---
DR YOUNG CALLED BACK, REPORTED THAT PT HAS BEEN STARTED ON DOPAMINE FOR BRADYCARDIA, AND ATROPINE, NO NEW ORDERS.
[2019-10-15] MEDS: DEXT 5% /NACL 0.9% 1,000 ML IV SCH ×2 (09:21→17:37)
--- NOTE | 2019-10-15 09:24 | NUR ---
STARTED IVF D4 NS AT 125 ML/HR AND ADMINISTERED ZOSYN PER MD ORDER. PULSE IS AT 75 AT THIS TIME. Addendum: 10/15/19 at 0925 by Lindy Weaver RN TYPO: [email or web address]
--- NOTE | 2019-10-15 09:33 | NUR ---
APTT IS 47.8 NO CHANGE PER PROTOCO, ORDER THE NEXT DRAW AT 1330.
--- NOTE | 2019-10-15 09:35 | NUR ---
BP 197/102 PULSE 96 SPO2 95% RR 25, DECREASED DOPAMINE 3 MCG/KG/MIN ( 11.22 ML/HR).
[2019-10-15] MEDS: LINEZOLID 600MG PREMIX 300 ML IV SCH ×2 (09:59→20:49)
--- NOTE | 2019-10-15 10:00 | NUR ---
ADMINISTERED LINEZOLID PER MD ORDER. PATIENT IS MORE ALERT AND MOVING, INCREASED PROPOFOL AT 9.98 MCG/KG/MIN ( 5.98 ML/HR).
--- NOTE | 2019-10-15 10:17 | NUR ---
DR YOUNG IS AT BEDSIDE.
--- NOTE | 2019-10-15 10:53 | NUR ---
RELEASED RESTRAINTS AND PERFORMED RANGE OF MOTIONS, NO SIGNS OF INJURY NOTED, TK JALLOH RN IS AT BEDSIDE. TUNNEL HEADING SUPERVISOR IN PLACE. SAFETY MEASURES IN PLACE. BED IN LOW POSITION, HOB ELEVATED 30 DEGREE, BED LOCKED AND BED ALARM ACTIVATED.
[2019-10-15] MEDS: MUPIROCIN 2% OINT 22 GM TUBE TP SCH (12:23)
[2019-10-15] MEDS: CHLORHEXADINE GLUC 2% CLOTH TP SCH (12:24)
--- NOTE | 2019-10-15 12:24 | NUR ---
CHECKED BLOOD GLUCOSE AND RECEIVED 270, ADMINISTERED 6 UNITS OF HUMALOG AND PROVIDED BACTROBAN AND CHG BATH, PATIENT IS STILL IN DIALYSIS. DAILYSIS RN JALLOH BY BEDSIDE. ASSEMBLER ADJUSTER IN PLACE. SAFETY MEASURES IN PLACE.
--- NOTE | 2019-10-15 13:40 | NUR ---
PATIENT IS STILL IN DIALYSIS.
--- NOTE | 2019-10-15 15:04 | NUR ---
HOLD DOPAMINE DUE TO BP IS HIGH 194/91 PULSE 89.
--- NOTE | 2019-10-15 15:10 | NUR ---
WITH ASSIST FROM ANOTHER RN, PERFORMED WOUND CARE, CHANGED DRESSING AND ALL DIRTY LINENS. REPOSITION PATIENT AND UPLOADED PRESSURE WITH PILLOWS, PT TOLERATED WELL. NO SIGNS OF ACUTE DISTRESS NOTED. CLOTH CUTTER IN PLACE. SAFETY MEASURES IN PLACE.
--- NOTE | 2019-10-15 15:56 | NUR ---
PT HAS ONE SMALL YELLOW SOFT BM, PROVIDED HYGIENE CARE AND CHANGED DIRTY. BP WAS LOW, READJUSTED BP CUFF, BP TAKEN BP 106/87 PULSE 83. POSITIONED PATIENT COMFORTABLY AND OFFLOADED PRESSURE WITH PILLOWS. AUTOMOBILE ASSEMBLER IN PLACE. SAFETY MEASURES IN PLACE.
--- NOTE | 2019-10-15 16:00 | NUR ---
APTT 150, HOLD HEPARIN DRIP PER PHARMACY PROTOCOL FOR AN HOUR. WILL ORDER NEXT LAB AT 2200.
--- NOTE | 2019-10-15 16:25 | NUR ---
PT REMAINS ON DOCUMENTED SETTINGS, ETT SECURED AND PATENT, NO DISTRESS AT THIS TIME. VENT PLUGGED INTO RED OUTLET, ALARMS ON AND FUNCTIONING.
--- NOTE | 2019-10-15 16:50 | NUR ---
STARTED DOPAMINE AT 11.22 ML/HR = 2.998 MCG/KG/MIN DUE TO BP LOW 78/48.
--- NOTE | 2019-10-15 16:55 | NUR ---
CHECKED BLOOD GLUCOSE AND RECEIVED 315, ADMINISTERED 8 UNITS OF HUMALOG. NO SIGNS OF DISTRESS NOTED. ACCOUNT SERVICES ASSOCIATE IN PLACE. SAFETY MEASURES IN PLACE.
--- NOTE | 2019-10-15 17:05 | NUR ---
STARTED HEPARIN DRIP AND RUNNING AT 2.5 ML/HR (250 UNITS/HR) PER PHARMACY PROTOCOL.
--- NOTE | 2019-10-15 17:32 | NUR ---
R HAND INFILTRATED, STARTED A NEW IV ON RFA 22G, CONTINUE INFUSING PROPOFOL PER MD ORDER.
--- NOTE | 2019-10-15 17:40 | NUR ---
ADMINISTERED SCHEDULED ZOSYN. STARTED A NEW BAG OF IVF AND PROPOFOL. CHANGED TUBING.
--- NOTE | 2019-10-15 19:21 | NUR ---
ENDORSED PATIENT AT WINDOW-SIDE FOR CONTINUITY OF CARE. PT IS IN STABLE CONDITION. STAFF ANTISUBMARINE OFFICER IN PLACE. SAFETY MEASURES IN PLACE.
--- NOTE | 2019-10-15 20:00 | NUR ---
RECEIVED REPORT FROM DAY SHIFT RN. PT ETT TO VENT. PT SEDATED RASS -3. DRY WEIGHT 99.79. A/C VC FIO2- 30%, TV- 500, RATE 20, PEEP 8. ACCESSES ON THE RIGHT FOREARM INFUSING PROPOFOL 10 MCG/KG/MIN. LEFT WRIST 20G INFUSING HEPARIN 250U/HR. RIGHT IJ WITH ALLAN INFUSING DOPAMINE @ 2.998 MCG/KG/MIN AND D5NS @125ML/HR. ASYMPTOMATIC PATENT AND INTACT. SKIN WARM AND DRY. SMALL OPEN SACRAL WOUND, ZGUARD AND OPTIFOAM IN PLACE. ORAL MUCOSA PINK AND MOIST. BED IN LOWEST POSITION, SIDE RAILS UP. DROPLET PRECAUTION MAINTAINED. WILL CONTINUE TO MONITOR.
[2019-10-15] MEDS: ATORVASTATIN 20 MG TAB PO SCH (20:52)
[2019-10-15] MEDS: MIRTAZAPINE 15 MG TAB PO SCH (20:53)
--- NOTE | 2019-10-15 22:50 | NUR ---
APTT 48.0. NO CHANGE IN HEPARIN DRIP PER PROTOCOL. WILL CONTINUE TO MONITOR.
[2019-10-16] VITALS (103 sets, daily range): BP systolic 77–195; BP diastolic 44–121
--- NOTE | 2019-10-16 | NUR ---
LATEST BP: 195/94. DOPAMINE DRIP DECREASED TO 1.5MCG/KG/MIN. HR: 75. WILL CONTINUE TO MONITOR PT.
[2019-10-16] MEDS: DEXT 5% /NACL 0.9% 1,000 ML IV SCH ×3 (00:07→17:00)
[2019-10-16] MEDS: PIPERACILLIN/TAZOBACTAM 2.25 GM in DEXTROSE 5% 50 ML IV SCH ×3 (00:21→17:00)
[2019-10-16] MEDS: Z-GUARD PASTE TP SCH ×2 (01:00→14:30)
--- NOTE | 2019-10-16 02:00 | NUR ---
PT WAS TURNED AND REPOSITIONED. PRESSURE AREAS OFF LOADED. NO RESPIRATORY DISTRESS OBSERVED.
--- NOTE | 2019-10-16 04:00 | NUR ---
MORNING ROUTINE PROVIDED. ORAL CARE, AD CARE, CORONADO CARE. TURNED AND REPOSITIONED. WILL CONTINUE TO MONITOR.
--- NOTE | 2019-10-16 06:01 | NUR ---
TITRATE PEEP TO +5 PT SAT STABLE AT 98%. WILL CONTINUE TO MONITOR.
[2019-10-16 06:16] LABS: BASOPHILS % (AUTO) 0.3 % (0.0-2.0); EOSINOPHILS # (AUTO) 0.2 K/uL (0-0.4); EOSINOPHILS % (AUTO) 1.6 % (0.0-4.0); HEMATOCRIT 41.3 % (36-52); LYMPHOCYTES # (AUTO) 0.9 K/uL (2.0-11.5); MEAN CORPUSCULAR HEMOGLOBIN 26 pg (27-31); MEAN CORPUSCULAR HGB CONC 34 g/dL (33-37); MONOCYTES # (AUTO) 0.7 K/uL (0.8-1.0); MONOCYTES % (AUTO) 6.4 % (1.7-9.3); NEUTROPHILS # (AUTO) 9.5 K/uL (1.8-7.7); NEUTROPHILS % (AUTO) 83.7 % (42.2-75.2); PLATELET COUNT (AUTO) 175 K/uL (140-450); RED BLOOD CELL COUNT(AUTO) 5.44 MIL/uL (4.20-6.10); RED CELL DISTRIBUTION WIDTH 15.7 % (11.6-13.7); WHITE BLOOD COUNT (AUTO) 11.4 K/uL (4.8-10.8)
--- NOTE | 2019-10-16 07:00 | NUR ---
PT REMAINS ON DOCUMENTED SETTINGS, ETT SECURED AND PT SHOWS NO DISTRESS AT THIS TIME. VENT PLUGGED INTO RED OUTLET, ALARMS ON AND FUNCTIONING, WILL CONTINUE TO MONITOR.
[2019-10-16 07:12] LABS: ALBUMIN 1.9 g/dL (3.4-5.0); ANION GAP 22.4 (8-16); ASPARTATE AMINOTRANSFERASE 36 U/L (15-37); CARBON DIOXIDE 19.9 mmol/L (21-32); CHLORIDE 97 mmol/L (98-107); GLUCOSE 393 mg/dL (74-106); LACTATE DEHYDROGENASE 426 U/L (85-227); PHOSPHORUS 5.2 mg/dL (2.5-4.9); POTASSIUM 4.3 mmol/L (3.5-5.1); SODIUM SERUM 135 mmol/L (136-145); TOTAL BILIRUBIN 0.5 mg/dL (0.0-1.0)
--- NOTE | 2019-10-16 07:20 | NUR ---
RECEIVED REPORT FROM AUTOMOBILE BODY REPAIRER RN. PT HAS AFIB, BRADYCARDIA, PVC. OPENS EYES TO NAME, SEDATED RASS -3. ETT TO VENT, A/C VC FIO2 30%, TV500, RATE 20, PEEP 5. IV CATH ON THE RIGHT FOREARM INFUSING PROPOFOL 10MCG/KG/MIN. DRY WEIGHT 99.79KG. LEFT WRIST 20G INFUSING HEPARIN 550U/HR. RIGHT IJ ALLAN WITH PIGTAIL INFUSING DOPAMINE 1.5 MCG/KG/MIN AND D5NS 125ML/HR, ASYMPTOMATIC, PATENT AND INTACT. SKIN COOL AND DRY. SMALL OPEN SACRAL WOUND, OPTIFOAM IN PLACE. BILATERAL WRIST RESTRAINT IN PLACE, NO SIGNS OF INJURY. CORONADO CATH IN PLACE DRAINING CLEAR YELLOW URINE. BED IN LOWEST POSITION, SIDE RAILS UP. DROPLET PRECAUTION IN PLACE.
[2019-10-16 07:52] LABS: UREA NITROGEN, BLOOD 71 mg/dL (7-18)
[2019-10-16 07:53] LABS: CREATININE 4.8 mg/dL (0.6-1.3)
[2019-10-16] MEDS: PROPOFOL 1000 MG/100 ML PREMIX 100 ML IV PRN (07:54)
[2019-10-16] MEDS: BLOOD GLUCOSE MONITORING 1 DEV DEV FS SCH ×4 (08:09→21:38)
[2019-10-16] MEDS: DEXAMETHASONE 4 MG/ML VIAL IVP SCH (08:10)
[2019-10-16] MEDS: PANTOPRAZOLE 40 MG INJ VIAL IVP SCH (08:10)
--- NOTE | 2019-10-16 08:10 | NUR ---
ORAL CARE AND CORONADO CARE DONE. PT HAS MODERATED ORAL SECRETION. DEEP SUCTION VIA THE ETT OBTAINED MODERATED WHITLEY COLOR SECRETION.
[2019-10-16] MEDS: ASPIRIN 81 MG TAB.CHEW PO SCH (08:12)
[2019-10-16] MEDS: OXYBUTYNIN 5 MG TAB PO SCH (08:13)
[2019-10-16] MEDS: BENAZEPRIL 20 MG TAB PO SCH (08:13)
[2019-10-16] MEDS: METOPROLOL 25 MG TAB PO SCH (08:13)
[2019-10-16] MEDS: VITAMIN D 400 IU TAB PO SCH (08:13)
[2019-10-16] MEDS: ASCORBIC ACID 500 MG TAB PO SCH (08:14)
[2019-10-16] MEDS: ZINC SULF 220 MG CAP PO SCH ×2 (08:14→21:00)
[2019-10-16] MEDS: GABAPENTIN 300 MG CAP PO SCH ×2 (08:14→21:00)
[2019-10-16] MEDS: INSULIN LISPRO SLIDING SCALE 100 UNITS/ML VIAL SUBQ PRN ×4 (09:06→21:39)
[2019-10-16] MEDS: LINEZOLID 600MG PREMIX 300 ML IV SCH ×2 (09:47→21:38)
--- NOTE | 2019-10-16 10:05 | NUR ---
DR ARSHAD SEEN PT. MADE HIM AWARE OF THE LACTIC ACID 5.1
--- NOTE | 2019-10-16 10:58 | NUR ---
PLACED PT ON CPAP TRIAL, PT SEEMS TO BE TOLERATING, NURSE AWARE OF CHANGE, WILL CONTINUE TO MONITOR.
--- NOTE | 2019-10-16 12:05 | NUR ---
PT PLACED BACK ON AC/VC DUE TO APNEA. PT IS ON LAST DOCUMENTED SETTINGS WITH NO DISTRESS, WILL CONTINUE TO MONITOR.
[2019-10-16] MEDS: MUPIROCIN 2% OINT 22 GM TUBE TP SCH (12:20)
[2019-10-16] MEDS: CHLORHEXADINE GLUC 2% CLOTH TP SCH (12:56)
--- NOTE | 2019-10-16 14:23 | NUR ---
SPOKE TO DR. ANGEL, PATIENT IS ABLE TO RECEIVE TPN. SPOKE TO RN GABY TO ASSIST IN PLACING THE TPN ORDER.
--- NOTE | 2019-10-16 14:30 | NUR ---
CALLED DR CERVANTES ABOUT GI CONSULT. DR CERVANTES SAID OK TO GET CONSENT FOR EGD WITH PED, MAY START TPN.
[2019-10-16] MEDS ORDERED: TPN PER PHARMACY MC PRN (14:35)
--- NOTE | 2019-10-16 16:07 | NUR ---
PICC LINE NURSE CALLED TO NOTIFY OF ORDER
--- NOTE | 2019-10-16 16:30 | NUR ---
PT REMAINS ON DOCUMENTED SETTINGS, ETT IS SECURED AND PATENT, NO DISTRESS NOTED. VENT PLUGGED INTO RED OUTLET, ALARMS ON AND FUNCTIONING.
--- NOTE | 2019-10-16 16:30 | NUR ---
TEMP 96.4F, STARTED BRE WEST ON PT.
--- NOTE | 2019-10-16 16:35 | NUR ---
10/16/19 RD FOLLOW UP COMPLETED PLEASE REFER TO NUTRITION ASSESSMENT UNDER CARE ACTIVITY FOR ESTIMATED NUTRITIONAL NEEDS. 1. CONSIDER TPN/PPN PER PHARMACY PROTOCOL AND GRADUALLY ADVANCE TO MEET NUTRITION GOALS 2. IF PT EXTUBATED CONSIDER SWALLOW EVALUATION 3. RD TO FOLLOW-UP 2-3 DAYS, HIGH RISK IVONNE RITCHIE RD
--- NOTE | 2019-10-16 19:46 | NUR ---
RECVD PT FROM DAY SHIFT ON AC 20,500,+5,30%. VENT PLUGGED INTO RED OUTLET. BMV AT BEDSIDE. ALARMS SET.ETT SECURED AND MOVED TO THE RIGHT. SX SMALL AMOUNT OF THICK CREAMY SECRETIONS. PT IS IN NO DISTRESS. WILL CONTINUE TO MONITOR.
--- NOTE | 2019-10-16 20:00 | NUR ---
RECEIVED REPORT FROM DAY SHIFT RN. PT ETT TO VENT. PT SEDATED RASS -3. DRY WEIGHT 99.79. A/C VC FIO2- 30%, TV- 500, RATE 20, PEEP 5. ACCESSES ON THE RIGHT FOREARM INFUSING PROPOFOL 10 MCG/KG/MIN. LEFT WRIST 20G INFUSING HEPARIN 300 U/HR. RIGHT IJ WITH ALLAN INFUSING DOPAMINE @ 1MCG/KG/MIN AND D5NS @125ML/HR. ASYMPTOMATIC PATENT AND INTACT. SKIN WARM AND DRY. SMALL OPEN SACRAL WOUND, ZGUARD AND OPTIFOAM IN PLACE. ORAL MUCOSA PINK AND MOIST. BED IN LOWEST POSITION, SIDE RAILS UP. DROPLET PRECAUTION MAINTAINED. WILL CONTINUE TO MONITOR.
[2019-10-16] MEDS: MIRTAZAPINE 15 MG TAB PO SCH (21:00)
[2019-10-16] MEDS: ATORVASTATIN 20 MG TAB PO SCH (21:00)
--- NOTE | 2019-10-16 21:45 | NUR ---
CALLED LAB AT THIS TIME. ORGAN RECOVERY COORDINATOR STATED PTT RESULT STILL PENDING. HE STATED THE MACHINE IS UNABLE TO READ THE RESULT, THEY WILL WILL SEND THE SPECIMEN TO [facility]. AWAITING FOR RESULT FROM 1929 DRAW.
[2019-10-17] VITALS (99 sets, daily range): BP systolic 82–191; BP diastolic 45–119
--- NOTE | 2019-10-17 | NUR ---
PT WAS TURNED AND REPOSITIONED. PRESSURE AREAS OFF LOADED. NO DISTRESS OBSERVED AT THIS TIME.
[2019-10-17] MEDS: DEXT 5% /NACL 0.9% 1,000 ML IV SCH ×4 (00:55→20:05)
[2019-10-17] MEDS: Z-GUARD PASTE TP SCH ×2 (01:05→12:51)
[2019-10-17] MEDS: PIPERACILLIN/TAZOBACTAM 2.25 GM in DEXTROSE 5% 50 ML IV SCH ×3 (01:05→18:25)
[2019-10-17] MEDS: PROPOFOL 1000 MG/100 ML PREMIX 100 ML IV PRN ×2 (02:48→21:00)
--- NOTE | 2019-10-17 04:50 | NUR ---
LAB CALLED WITH A PTT LEVEL OF >120. HELD HEPARIN DRIP AT THIS TIME PER PROTOCOL. WILL CONTINUE TO MONITOR.
--- NOTE | 2019-10-17 05:49 | NUR ---
CALLED DR LIU HOME CARE MANAGER RN REGARDING PICC PLACEMENT. DR LIU STATED THAT PATIENT IS ON DIALYSIS CANNOT HAVE A PICC LINE. PATIENT CAN HAVE A CENTRAL LINE
--- NOTE | 2019-10-17 05:50 | NUR ---
HEPARIN DRIP RESTARTED AT 250 UNITS/HR. APTT LEVEL WILL BE DRAWN @ 1150 AM TODAY.
--- NOTE | 2019-10-17 06:00 | NUR ---
MORNING ROUTINE PROVIDED. NO DISTRESS OBSERVED. WILL CONTINUE TO MONITOR.
[2019-10-17] MEDS: BLOOD GLUCOSE MONITORING 1 DEV DEV FS SCH (06:23)
[2019-10-17] MEDS: INSULIN LISPRO SLIDING SCALE 100 UNITS/ML VIAL SUBQ PRN ×3 (06:24→18:24)
[2019-10-17 06:34] LABS: BASOPHILS % (AUTO) 0.1 % (0.0-2.0); EOSINOPHILS % (AUTO) 0.1 % (0.0-4.0); HEMATOCRIT 38.8 % (36-52); HEMOGLOBIN 12.1 g/dL (12.0-18.0); LYMPHOCYTES # (AUTO) 0.8 K/uL (2.0-11.5); LYMPHOCYTES % (AUTO) 9.6 % (20.5-51.1); MEAN CORPUSCULAR HEMOGLOBIN 24 pg (27-31); MEAN CORPUSCULAR HGB CONC 31 g/dL (33-37); MONOCYTES # (AUTO) 0.6 K/uL (0.8-1.0); MONOCYTES % (AUTO) 7.3 % (1.7-9.3); NEUTROPHILS # (AUTO) 7.1 K/uL (1.8-7.7); NEUTROPHILS % (AUTO) 82.9 % (42.2-75.2); PLATELET COUNT (AUTO) 158 K/uL (140-450); RED CELL DISTRIBUTION WIDTH 15.7 % (11.6-13.7); WHITE BLOOD COUNT (AUTO) 8.5 K/uL (4.8-10.8)
--- NOTE | 2019-10-17 07:15 | NUR ---
RECEIVED BESIDE REPORT FROM STEAM SHOVEL ENGINEER NURSE JENNYFER, PT SEDATED RASS -3, DRY WEIGHT 99.79KG, IV TO L WRIST 20G PATENT INTACT SL, IV TO R FA 22G PATENT INTACT, INFUSING PROPOFOL @ 10MCG/KG/MIN, AND HEPARIN @250 UNIT/HR, INFUSING WELL, RIJ ALLAN CATH WITH PIGTAIL RUNNING D5NS @ 125ML/HR, AND DOPAMINE AT 1MCG/KG/MIN, INFUSING WELL, PT ON ETT TO VENT, AC/VC FIO2 30%, PEEP 5, SATURATING @98%, NO SOB NOTED, BILATERAL EQUAL CHEST RISE, CORONADO CATH IN PLACE, DRAINING TO GRAVITY, INITIAL ASSESSMENT DONE, ALL SAFETY PRECAUTION MET, CALL LIGHT WITHIN REACH, WILL CONTINUE TO MONITOR.
--- NOTE | 2019-10-17 07:17 | NUR ---
RECEIVED INTUBATED PT WITH A 8.0 ETT SECURED @25 TEETH/GUM ON VENT. SETTINGS A/C VC 30, VT 450, PEEP 5 AND FIO2 30%. ETT IS SECURE WITH A PATENT AIRWAY. PT SEDATED AT THIS TIME NOT IN ANY DISTRESS. VENT IS PLUGGED INTO A RED OUTLET WITH ALARMS ON AND FUNCTIONING. WILL CONTINUE TO MONITOR.
[2019-10-17 07:31] LABS: ALBUMIN 1.7 g/dL (3.4-5.0); ANION GAP 23.5 (8-16); ASPARTATE AMINOTRANSFERASE 24 U/L (15-37); CARBON DIOXIDE 16.6 mmol/L (21-32); CHLORIDE 104 mmol/L (98-107); GLUCOSE 333 mg/dL (74-106); LACTATE DEHYDROGENASE 347 U/L (85-227); MAGNESIUM 1.8 mg/dL (1.8-2.4); PHOSPHORUS 5.4 mg/dL (2.5-4.9); POTASSIUM 4.1 mmol/L (3.5-5.1); SODIUM SERUM 140 mmol/L (136-145); TOTAL BILIRUBIN 0.4 mg/dL (0.0-1.0)
[2019-10-17] MEDS: PANTOPRAZOLE 40 MG INJ VIAL IVP SCH (08:26)
[2019-10-17] MEDS: DEXAMETHASONE 4 MG/ML VIAL IVP SCH (08:26)
[2019-10-17] MEDS: LINEZOLID 600MG PREMIX 300 ML IV SCH ×2 (08:33→20:11)
--- NOTE | 2019-10-17 08:33 | NUR ---
DUE MEDICATION GIVEN, PT TOLERATED WELL, NO DISTRESS NOTED, WILL CONTINUE TO MONITOR.
[2019-10-17 08:40] LABS: UREA NITROGEN, BLOOD 76 mg/dL (7-18)
[2019-10-17 08:42] LABS: CREATININE 5.6 mg/dL (0.6-1.3)
[2019-10-17] MEDS: ZINC SULF 220 MG CAP PO SCH ×2 (09:00→20:13)
[2019-10-17] MEDS: GABAPENTIN 300 MG CAP PO SCH ×2 (09:00→20:13)
[2019-10-17] MEDS: ASCORBIC ACID 500 MG TAB PO SCH (09:00)
[2019-10-17] MEDS: BENAZEPRIL 20 MG TAB PO SCH (09:00)
[2019-10-17] MEDS: ASPIRIN 81 MG TAB.CHEW PO SCH (09:00)
[2019-10-17] MEDS: OXYBUTYNIN 5 MG TAB PO SCH (09:00)
[2019-10-17] MEDS: METOPROLOL 25 MG TAB PO SCH (09:00)
[2019-10-17] MEDS: VITAMIN D 400 IU TAB PO SCH (09:00)
[2019-10-17] MEDS: DOPamine 400 MG/D5W PREMIX 250 ML IV PRN (09:21)
[2019-10-17] MEDS: BLOOD GLUCOSE MONITORING 1 DEV DEV MC SCH ×2 (11:31→18:24)
[2019-10-17] MEDS: MUPIROCIN 2% OINT 22 GM TUBE TP SCH (12:49)
[2019-10-17] MEDS: CHLORHEXADINE GLUC 2% CLOTH TP SCH (12:49)
--- NOTE | 2019-10-17 12:49 | NUR ---
PT PLACED ON SBT CPAP 5 PS 10 FIO2 30%. NURSE AWARE. PT ABLE TO OPEN EYES BUT NOT ABLE TO FOLLOW SIMPLE COMMANDS. WILL CONTINUE TO MONITOR.
--- NOTE | 2019-10-17 14:03 | NUR ---
SBT ENDED DUE TO PT RR ALARMING OUT OF PARAMETERS AND RETURNING TO A/C VC MODE. NURSE MADE AWARE.
--- NOTE | 2019-10-17 15:20 | NUR ---
DIALYSIS STARTED, DIALYSIS NURSE AT BEDSIDE, WILL CONTINUE TO MONITOR.
--- NOTE | 2019-10-17 18:10 | NUR ---
DIALYSIS COMPLETED, PER DIALYSIS NURSE SHUBHAM PAGE, 2L OUT. WILL CONTINUE TO MONITOR.
--- NOTE | 2019-10-17 18:25 | NUR ---
MEDICATION ZOSYN THAT IS DUE AT 1700 GIVEN DUE TO DIALYSIS. PT TOLERATED WELL, NO DISTRESS NOTED, WILL CONTINUE TO MONITOR.
--- NOTE | 2019-10-17 19:15 | NUR ---
ENDORSED PT TO BOTTOM POUNDER CEMENT SHOES NURSE FOR CONTINUOUS OF CARE
--- NOTE | 2019-10-17 19:40 | NUR ---
RECEIVED REPORT FROM DAY SHIFT RN. PT ETT TO VENT. PT SEDATED RASS -3. DRY WEIGHT 99.79. A/C VC FIO2- 30%, TV- 500, RATE 20, PEEP 5. ACCESSES ON THE RIGHT FOREARM INFUSING PROPOFOL 10 MCG/KG/MIN AND HEPARIN DRIP @ 550 U/HR. LEFT WRIST 20G SALINE LOCK. RIGHT IJ WITH ALLAN INFUSING DOPAMINE @ 3MCG/KG/MIN AND D5NS @125ML/HR. ASYMPTOMATIC PATENT AND INTACT. SKIN WARM AND DRY. SMALL OPEN SACRAL WOUND, ZGUARD AND OPTIFOAM IN PLACE. ORAL MUCOSA PINK AND MOIST. BED IN LOWEST POSITION, SIDE RAILS UP. DROPLET PRECAUTION MAINTAINED. WILL CONTINUE TO MONITOR.
[2019-10-17] MEDS ORDERED: DEXT 5% /NACL 0.9% 1,000 ML IV SCH (20:00)
--- NOTE | 2019-10-17 20:00 | NUR ---
NEW IV LINE INSERTED TO LEFT FOREARM G22. PARENTERAL NUTRITION HUNG AND INFUSING @ 50MLS/HR. OKAY TO USE PERIPHERAL LINE PER PHARMACY. D5 NS NOW INFUSING @ 75MLS/HR PER ORDER. WILL CONTINUE TO MONITOR PT.
[2019-10-17] MEDS: MULTIVITAMIN-12 10 ML in DEXTROSE 50% 600 ML, AMINO ACIDS 8.5% 600 ML IV SCH ×3 (20:04)
[2019-10-17] MEDS: ATORVASTATIN 20 MG TAB PO SCH (20:12)
[2019-10-17] MEDS: MIRTAZAPINE 15 MG TAB PO SCH (20:13)
[2019-10-17] MEDS ORDERED: INSULIN LISPRO SLIDING SCALE 100 UNITS/ML VIAL SUBQ PRN (21:00)
--- NOTE | 2019-10-17 22:50 | NUR ---
LAB CALLED WITH A PTT LEVEL OF >150. HELD HEPARIN AT THIS TIME FOR ONE HOUR.
--- NOTE | 2019-10-17 23:50 | NUR ---
HEPARIN DRIP DECREASED TO 300 U/HR PER PROTOCOL. ANOTHER APTT DRAW SCHEDULE FOR TOMORROW @ 5:50 AM.
[2019-10-18] VITALS (80 sets, daily range): BP systolic 80–181; BP diastolic 40–100
[2019-10-18] MEDS: INSULIN LISPRO SLIDING SCALE 100 UNITS/ML VIAL SUBQ PRN ×5 (00:16→17:50)
[2019-10-18] MEDS: BLOOD GLUCOSE MONITORING 1 DEV DEV MC SCH ×4 (00:58→17:24)
[2019-10-18] MEDS: PIPERACILLIN/TAZOBACTAM 2.25 GM in DEXTROSE 5% 50 ML IV SCH ×3 (01:23→17:55)
[2019-10-18] MEDS: Z-GUARD PASTE TP SCH ×2 (01:23→12:57)
--- NOTE | 2019-10-18 04:00 | NUR ---
TURNED AND REPOSITIONED PT. NO DISTRESS NOTED. SEDATED RASS -3.
--- NOTE | 2019-10-18 05:30 | NUR ---
MORNING ROUTINE PROVIDED. AD CARE, ORAL CARE, CORONADO CARE. PRESSURE AREAS OFF LOADED. WILL CONTINUE TO MONITOR.
[2019-10-18] MEDS: PROPOFOL 1000 MG/100 ML PREMIX 100 ML IV PRN (06:30)
[2019-10-18 06:42] LABS: ANION GAP 18.5 (8-16); CARBON DIOXIDE 23.6 mmol/L (21-32); CHLORIDE 102 mmol/L (98-107); GLUCOSE 322 mg/dL (74-106); POTASSIUM 3.1 mmol/L (3.5-5.1); SODIUM SERUM 141 mmol/L (136-145); UREA NITROGEN, BLOOD 59 mg/dL (7-18)
[2019-10-18 06:57] LABS: CREATININE 4.9 mg/dL (0.6-1.3)
--- NOTE | 2019-10-18 07:05 | NUR ---
LAB CALLED FOR A PTT LEVEL 0F 51. NO CHANGE IN HEPARIN DRIP AT THIS TIME.
--- NOTE | 2019-10-18 07:15 | NUR ---
RECEIVED BEDSIDE REPORT FROM ENVIRONMENTAL EDUCATION SPECIALIST NURSE JENNYFER. PT SEDATED RASS -3, DRY WEIGHT 99.79KG, IV TO L FA 22G PATENT INTACT RUNNING PPN@ 50ML/HR, TOLERATING WELL, RIJ ALLAN CATH WITH PIGTAIL RUNNING D5NS @ 75ML/HR, DOPAMINE @ 1MCG/KG/MIN, R FA 22G PATENT INTACT, INFUSING HEPARIN DRIP AT 300 UNITS/HR, INFUSING WELL, IV TO L FA 20G PATENT INTACT, SL. PT ON ETT TO VENT, AC/VC FIO2 30%, PEEP5, NO SOB NOTED, EQUAL BILATERAL CHEST RISE. CORONADO CATH IN PLACE DRAINING TO GRAVITY, INITIAL ASSESSMENT DONE, ALL SAFETY PRECAUTION MET, CALL LIGHT WITHIN REACH, WILL CONTINUE TO MONITOR.
[2019-10-18 07:17] LABS: MAGNESIUM 1.6 mg/dL (1.8-2.4); PHOSPHORUS 4.2 mg/dL (2.5-4.9)
--- NOTE | 2019-10-18 07:20 | NUR ---
ENDORSED PT TO DAY SHIFT RN FOR CONTINUITY OF CARE.
[2019-10-18] MEDS: PANTOPRAZOLE 40 MG INJ VIAL IVP SCH (08:39)
[2019-10-18] MEDS: DEXAMETHASONE 4 MG/ML VIAL IVP SCH (08:40)
--- NOTE | 2019-10-18 08:40 | NUR ---
DUE MEDICATION ADMINISTERED, PT TOLERATED WELL, NO DISTRESS NOTED, WILL CONTINUE TO MONITOR.
[2019-10-18] MEDS: METOPROLOL 25 MG TAB PO SCH (09:00)
[2019-10-18] MEDS: ASCORBIC ACID 500 MG TAB PO SCH (09:00)
[2019-10-18] MEDS: OXYBUTYNIN 5 MG TAB PO SCH (09:00)
[2019-10-18] MEDS: VITAMIN D 400 IU TAB PO SCH (09:00)
[2019-10-18] MEDS: ASPIRIN 81 MG TAB.CHEW PO SCH (09:00)
[2019-10-18] MEDS: GABAPENTIN 300 MG CAP PO SCH ×2 (09:00→21:20)
[2019-10-18] MEDS: BENAZEPRIL 20 MG TAB PO SCH (09:00)
[2019-10-18] MEDS: DEXT 5% /NACL 0.9% 1,000 ML IV SCH ×2 (09:20→22:40)
[2019-10-18] MEDS: LINEZOLID 600MG PREMIX 300 ML IV SCH ×2 (09:24→21:20)
--- NOTE | 2019-10-18 10:10 | NUR ---
CONSENT OBTAINED THROUGH TELEPHONE WITH PT'S BROTHER ADARSH TONY AT [phone], FOR REINSERTION OF ALLAN CATHETER.
--- NOTE | 2019-10-18 10:30 | NUR ---
DR JO AT BEDSIDE INSERTING CVP AND REINSERTING DIALYSIS CATH.
--- NOTE | 2019-10-18 11:25 | NUR ---
DIALYSIS CATH AND CVP SATISFACTORY PLACEMENT BY CXR, PER DR DEYSI POSADA TO USE.
[2019-10-18] MEDS: CHLORHEXADINE GLUC 2% CLOTH TP SCH (12:57)
[2019-10-18] MEDS: MUPIROCIN 2% OINT 22 GM TUBE TP SCH (12:57)
--- NOTE | 2019-10-18 14:08 | NUR ---
CALLED SHUBHAM ROD FINISHER, PER DR ZAMUDIO DIALYSIS FOR TOMORROW 10/19/19 AND NOTIFIED SHUBHAM NEW DIALYSIS CATH HAS BEEN PLACED, RN STATED UNDERSTANDING.
[2019-10-18] MEDS: KCL 20 MEQ/WATER INJ PREMIX 200 ML IV PRN (14:25)
[2019-10-18] MEDS: ATROPINE 1 MG/10 ML SYR IVP PRN (14:54)
--- NOTE | 2019-10-18 14:54 | NUR ---
PT HR 39 DESPITE DOPAMINE DRIP, ATROPINE GIVEN PER DR ORDER, WILL CONTINUE TO MONITOR.
[2019-10-18] MEDS ORDERED: MORPHINE SULFATE 2 MG/ML SYR IVP PRN (17:00)
--- NOTE | 2019-10-18 17:00 | NUR ---
DR PETERS AT BEDSIDE, DR AWARE HR IS LOW, PER DR TO DC PROPOFOL AND ORDER ATIVAN 1MG IVP PRN AGITATION Q2H AND MORPHINE 2MG IVP PRN AGITATION Q2H AND TO ORDER ABG AND CBC. WILL PUT IN ORDERS AND CONTINUE WITH ORDERS.
--- NOTE | 2019-10-18 17:20 | NUR ---
CALLED DR. ROSE MARIE PETERS PAGER [phone] TO REVIEW ABG SAMPLE REPORT LEFT CALL BACK NUMBER [phone]
[2019-10-18] MEDS: LORazepam 2 MG/ML VIAL IM/IVP PRN ×2 (17:24→23:05)
--- NOTE | 2019-10-18 17:26 | NUR ---
CALL BACK FROM DR. ROSE MARIE PETERS REVIEWED ABG SAMPLE REPORT MD STATES "THANK YOU" NO NEW ORDERS
--- NOTE | 2019-10-18 17:52 | NUR ---
STABLE GOOD CHEST RISE ENDOTRACHEAL SUCTION FOR SMALL THICK YELLOW SECRETIONS AIRWAY PATENT
[2019-10-18 18:50] LABS: BASOPHILS % (AUTO) 0.1 % (0.0-2.0); EOSINOPHILS % (AUTO) 0.1 % (0.0-4.0); HEMATOCRIT 33.3 % (36-52); HEMOGLOBIN 10.5 g/dL (12.0-18.0); LYMPHOCYTES # (AUTO) 0.5 K/uL (2.0-11.5); LYMPHOCYTES % (AUTO) 7.5 % (20.5-51.1); MEAN CORPUSCULAR HEMOGLOBIN 24 pg (27-31); MEAN CORPUSCULAR HGB CONC 32 g/dL (33-37); MEAN CORPUSCULAR VOLUME 75.3 fL (80-94); MONOCYTES # (AUTO) 0.3 K/uL (0.8-1.0); MONOCYTES % (AUTO) 5.1 % (1.7-9.3); NEUTROPHILS # (AUTO) 5.3 K/uL (1.8-7.7); NEUTROPHILS % (AUTO) 87.2 % (42.2-75.2); PLATELET COUNT (AUTO) 108 K/uL (140-450); RED BLOOD CELL COUNT(AUTO) 4.42 MIL/uL (4.20-6.10); RED CELL DISTRIBUTION WIDTH 15.5 % (11.6-13.7)
--- NOTE | 2019-10-18 19:25 | NUR ---
ENDORSED PT TO SERVICE LINE BUS CLEANER NURSE FOR CONTINUOUS OF CARE
--- NOTE | 2019-10-18 19:26 | NUR ---
RECVD PT FROM DAY SHIFT ON DOCUMENTED SETTINGS. VENT PLUGGED INTO RED OUTLET. ETT SECURED. ALARMS SET AND AUDIBLE. SX SCANT AMOUNT OF BROWN SECRETIONS. NO DISTRESS NOTED. WILL CONTINUE TO MONITOR
--- NOTE | 2019-10-18 19:30 | NUR ---
RECIVED REPORT FROM SHELBY PAGE. CONTINUATION OF CARE.
--- NOTE | 2019-10-18 19:32 | NUR ---
PT RSS -3. PT RESPONSIVE TO TOUCH. PT WITHDRAWLS FROM PAIN. PATENT AIRWAY AND NO RESPIRATORY DISTRESS NOTED. O2SAT@ 98%. RESPIRATIONS ARE EVEN AND UNLABORED. CRACKLES NOTED UPPER LOBES BILAT. PT SUCTIONED NEEDED. BROWN THICK SECRETIONS NOTED. PT HOB UP 30 DEGREES. PT ABD IS SOFT, ROUND, AND NON TENDER. FC REMAINS IN PLACE. URINE RUNNING CONTINOUSLY. NO BLOOD NOTED IN TUBING. CENTRAL L SUBCLAVIAN 3 LUMEN PATENT. PERRL 3MM BRISK, BILAT. PT AFEBRILE. PT ON WRIST HEMMER. VSS.
--- NOTE | 2019-10-18 19:33 | NUR ---
ETT TO VENT IN ACVC MODE FIO2 30%, VT 500, RR 20, PEEP 5.LEFT IJ CENTRAL LINE IN PLACE, R FA 22G AND L FA 22G ARE ALL PATENT AND ASYMPTOMATIC. TPN INFUSING AT 50ML. PT RECEIVING HEPARIN DRIP AT 450U. HD SCHEDULED FOR 10/19/19.
[2019-10-18] MEDS: MULTIVITAMIN-12 10 ML in DEXTROSE 50% 600 ML, AMINO ACIDS 8.5% 600 ML IV SCH ×3 (20:20)
--- NOTE | 2019-10-18 21:03 | NUR ---
SPOKE WITH PURNIMA JALLOH ABOUT PT BP AND LABS.
--- NOTE | 2019-10-18 21:15 | NUR ---
PT NON VERBAL, WITHDRAWLS FROM PAIN. PT RSS -3. PT RESPONSIVE TO TOUCH. PATENT AIRWAY AND NO RESPIRATORY DISTRESS NOTED. RESPIRATIONS ARE EVEN AND UNLABORED. PT HOB UP 30 DEGREES. PT REPOSITIONED FOR COMFORT AND TO REDUCE SKIN BREAK DOWN. PT ABD IS SOFT, ROUND, AND NON TENDER. FC REMAINS IN PLACE. URINE RUNNING CONTINOUSLY. NO BLOOD NOTED IN TUBING. IV ASYMMPTOMATIC. PERRL 3MM BRISK, BILAT. PT AFEBRILE. PT ON CONSTRUCTION SALES REPRESENTATIVE. VSS.
[2019-10-18] MEDS: ATORVASTATIN 20 MG TAB PO SCH (21:20)
[2019-10-18] MEDS: MIRTAZAPINE 15 MG TAB PO SCH (21:20)
--- NOTE | 2019-10-18 23:05 | NUR ---
PT RASS -3. PT RESPONSIVE TO TOUCH. PT NOTED WITH FACIAL GRIMACE, ATTEMPTING TO MOVE LINES. PT GIVEN ATIVAN PRN ORDERED. PATENT AIRWAY AND NO RESPIRATORY DISTRESS NOTED. RESPIRATIONS ARE EVEN AND UNLABORED. PT HOB UP 30 DEGREES. PT REPOSITIONED FOR COMFORT AND TO REDUCE SKIN BREAK DOWN. PT REMAINS ON SOFT WRIST RESTRAINTS. NO SKIN BREAK DOWN NOTED CMS INTACT. CAP REFILL <3. PT ABD IS SOFT, ROUND, AND NON TENDER. FC REMAINS IN PLACE. IV ASYMMPTOMATIC. PERRL 3MM BRISK, BILAT. PT AFEBRILE. PT ON HOME CARE ASSOCIATE. VSS.
[2019-10-19] VITALS (21 sets, daily range): BP systolic 110–168; BP diastolic 59–88
[2019-10-19] MEDS: BLOOD GLUCOSE MONITORING 1 DEV DEV MC SCH ×4 (00:10→18:00)
--- NOTE | 2019-10-19 00:15 | NUR ---
PT CHECKED. NO RESPIRATORY DISTRESS NOTED. WILL CONT TO MONITOR
[2019-10-19] MEDS: INSULIN LISPRO SLIDING SCALE 100 UNITS/ML VIAL SUBQ PRN ×4 (00:30→18:00)
--- NOTE | 2019-10-19 01:03 | NUR ---
RT AT BEDSIDE. PT RASS -3. RESPIRATIONS ARE EVEN AND UNLABORED. SUCTION PROVIDED BY RT. SECRETIONS NOTED AND THICK, COPIOUS, AND RED IN COLOR. PT 02SAT@ 98%, ABD IS SOFT, ROUND, AND NONTENDER. PT FC IN PLACE, 350CC OF URINE NOTED. URINE IS YELLOW AND CLEAR. PT REMAINS ON CARDIAC MONTIOR. VSS.
--- NOTE | 2019-10-19 01:08 | NUR ---
SX SCANT AMOUNT OF THICK RED SECRETIONS. SX BOUCHER CHANGED. HME CHANGED. WILL CONT TO MONITOR
[2019-10-19] MEDS: PIPERACILLIN/TAZOBACTAM 2.25 GM in DEXTROSE 5% 50 ML IV SCH ×3 (01:10→17:23)
[2019-10-19] MEDS: Z-GUARD PASTE TP SCH ×2 (01:30→13:00)
--- NOTE | 2019-10-19 03:03 | NUR ---
PT RASS -3. RESPIRATIONS ARE EVEN AND UNLABORED. PT 02SAT@ 98%. ABD IS SOFT, ROUND, AND NONTENDER. PT FC IN PLACE, 350CC OF URINE NOTED. URINE IS YELLOW AND CLEAR. IV SITE REMAINS PATNET. NO SWELLING NOTED. PT REMAINS ON CARDIAC MONTIOR. VSS.
--- NOTE | 2019-10-19 03:30 | NUR ---
LAB AT BEDSIDE TO DRAW PTT R/T HEPARIN DRIP. WILL FOLLOW UP
--- NOTE | 2019-10-19 05:00 | NUR ---
KAY YOUTH NUTRITIONAL MONITOR AT BEDSIDE TO OBTAIN LAB DRAW. LABS COLLECTED BY RN AND GIVEN TO YOUTH NUTRITIONAL MONITOR. PT CONTINUES ON PROPERTY UNDERWRITER. VSS.
--- NOTE | 2019-10-19 05:36 | NUR ---
PT REMAINS ON DOCUMENTED SETTINGS. NO CHANGES MADE. ETT SECURED. ALARM SET. NO DISTRESS NOTED. WILL CONT TO MONITOR
[2019-10-19 06:10] LABS: BASOPHILS % (AUTO) 0.1 % (0.0-2.0); EOSINOPHILS % (AUTO) 0.5 % (0.0-4.0); HEMATOCRIT 32.2 % (36-52); HEMOGLOBIN 10.2 g/dL (12.0-18.0); LYMPHOCYTES # (AUTO) 0.7 K/uL (2.0-11.5); LYMPHOCYTES % (AUTO) 10.8 % (20.5-51.1); MEAN CORPUSCULAR HEMOGLOBIN 24 pg (27-31); MEAN CORPUSCULAR HGB CONC 32 g/dL (33-37); MEAN CORPUSCULAR VOLUME 75.4 fL (80-94); MONOCYTES # (AUTO) 0.4 K/uL (0.8-1.0); MONOCYTES % (AUTO) 6.3 % (1.7-9.3); NEUTROPHILS # (AUTO) 5.4 K/uL (1.8-7.7); NEUTROPHILS % (AUTO) 82.3 % (42.2-75.2); PLATELET COUNT (AUTO) 109 K/uL (140-450); RED BLOOD CELL COUNT(AUTO) 4.27 MIL/uL (4.20-6.10); RED CELL DISTRIBUTION WIDTH 15.3 % (11.6-13.7); WHITE BLOOD COUNT (AUTO) 6.6 K/uL (4.8-10.8)
[2019-10-19 06:20] LABS: ANION GAP 18.7 (8-16); CARBON DIOXIDE 21.5 mmol/L (21-32); CHLORIDE 98 mmol/L (98-107); GLUCOSE 353 mg/dL (74-106); POTASSIUM 3.2 mmol/L (3.5-5.1); SODIUM SERUM 135 mmol/L (136-145)
--- NOTE | 2019-10-19 07:00 | NUR ---
PT RASS -3. RESPIRATIONS ARE EVEN AND UNLABORED. PT 02SAT@ 98%. ABD IS SOFT, ROUND, AND NONTENDER. PT FC IN PLACE, 650CC OF URINE NOTED. URINE IS YELLOW AND CLEAR. IV SITE REMAINS PATNET. NO SWELLING NOTED AT SITE. PT REMAIN ON SOFT BILAT WRIST RESTRAINTS. CAP REFIL <3. PT REMAINS ON CARDIAC MONTIOR. VSS.
--- NOTE | 2019-10-19 07:15 | NUR ---
RECEIVED REPORT FROM EDDY CURRENT INSPECTOR. PT IN NO DISTRESS, FLACC 0, RESPIRATIONS EVEN AND UNLABORED ON ETT TO VENT IN ACVC MODE FIO2 30%, VT 500, RR 20, PEEP 5.LEFT IJ CENTRAL LINE IN PLACE, R FA 22G AND L FA 22G, PATENT AND ASYMPTOMATIC INFUSING PER ORDER. TPN INFUSING AT 50ML. PT RECEIVING HEPARIN DRIP AT 450U. HD SCHEDULED FOR TODAY. DROPLET PRECAUTIONS IN PLACE. CORONADO IN PLACE. SAFETY MEASURES IN PLACE, BED IN LOW POSITION. WILL CONTINUE TO MONITOR.
--- NOTE | 2019-10-19 07:15 | NUR ---
RECIVED REPORT FROM JUANITO PAGE. CONTINUATION OF CARE.
[2019-10-19 07:21] LABS: MAGNESIUM 1.7 mg/dL (1.8-2.4); PHOSPHORUS 4.4 mg/dL (2.5-4.9)
[2019-10-19 07:23] LABS: CREATININE 5.3 mg/dL (0.6-1.3); UREA NITROGEN, BLOOD 71 mg/dL (7-18)
[2019-10-19] MEDS: LINEZOLID 600MG PREMIX 300 ML IV SCH ×2 (08:21→20:44)
[2019-10-19] MEDS: PANTOPRAZOLE 40 MG INJ VIAL IVP SCH (08:22)
[2019-10-19] MEDS: GABAPENTIN 300 MG CAP PO SCH ×2 (08:23→21:00)
[2019-10-19] MEDS: BENAZEPRIL 20 MG TAB PO SCH (08:23)
[2019-10-19] MEDS: ASPIRIN 81 MG TAB.CHEW PO SCH (08:23)
[2019-10-19] MEDS: DEXAMETHASONE 4 MG/ML VIAL IVP SCH (08:23)
[2019-10-19] MEDS: METOPROLOL 25 MG TAB PO SCH (08:26)
[2019-10-19] MEDS: INSULIN LANTUS 100 UNITS/ML 10 ML VIAL SUBQ SCH (08:28)
[2019-10-19] MEDS: LORazepam 2 MG/ML VIAL IVP PRN ×2 (09:00→21:20)
[2019-10-19] MEDS: OXYBUTYNIN 5 MG TAB PO SCH (09:00)
--- NOTE | 2019-10-19 09:21 | NUR ---
MEDICATIONS ADMINISTERED PER ORDER. HEPARIN ADJUSTED PER PROTOCOL. NO DISTRESS NOTED, VAP ORAL CARE GIVEN. PT REPOSITIONED. SAFETY MEASURES IN PLACE. WILL CONTINUE TO MONITOR.
--- NOTE | 2019-10-19 11:15 | NUR ---
PT STARTED ON HEMODIALYSIS AT THIS TIME. WILL CONTINUE TO MONITOR.
[2019-10-19] MEDS: DEXT 5% /NACL 0.9% 1,000 ML IV SCH (12:00)
--- NOTE | 2019-10-19 12:36 | NUR ---
10/19/19 RD FOLLOW UP COMPLETED PLEASE REFER TO NUTRITION PROGRESS NOTE UNDER CARE ACTIVITY FOR ESTIMATED NUTRITION NEEDS. RD RECOMMENDATIONS: 1. RECOMMEND INCREASING PARENTAL NUTRITION GOAL RATE OF D10%, AA 3.25% TO RUN AT 75 ML/HR TO PROVIDE 1800 Ml TOTAL VOLUME, 901 KCAL, 62 GM PROTEIN TO MEET 82% KCAL NEEDS AND 67% PROTEIN NEEDS. 2. IF PT EXTUBATED CONSIDER SWALLOW EVALUATION 3. RD TO FOLLOW-UP 2-3 DAYS, HIGH RISK DESIREE LEON MS, TAON Addendum: 10/19/19 at [address] RDN DISCUSSED WITH PHARMACY RECOMMENDATION TO INCREASE TPN RATE TO 75 ML/HR. PHARMACY ACKNOWLEDGES.
--- NOTE | 2019-10-19 13:58 | NUR ---
PT FINALIZED HEMODIALYSIS, TOLERATED WELL. 2L OUTPUT. WILL CONTINUE TO MONITOR.
[2019-10-19] MEDS: MAG SULF 2000 MG/WATER PREMIX 50 ML IV PRN (15:09)
--- NOTE | 2019-10-19 16:12 | NUR ---
20MEQ K RIDER ADMINISTERED AT THIS TIME. PT IN NO DISTRESS, FLACC 0, RESPIRATIONS EVEN AND UNLABORED. CORONADO CARE GIVEN. PT REPOSITIONED. SAFETY MEASURES IN PLACE. WILL CONTINUE TO MONITOR.
[2019-10-19] MEDS: ATROPINE 1 MG/10 ML SYR IVP PRN (18:00)
--- NOTE | 2019-10-19 18:01 | NUR ---
0.4MG ATROPINE GIVEN FOR BRADYCARDIA. WILL CONTINUE TO MONITOR.
--- NOTE | 2019-10-19 19:20 | NUR ---
PT ENDORSED TO FINANCIAL AID COUNSELOR FOR CONTINUITY OF CARE.
--- NOTE | 2019-10-19 19:25 | NUR ---
RECEIVED PATIENT ON BED WITH HOB ELEVATED TO 30 DEGREE; LETHARGIC BUT OPEN EYES TO CALLS. ORALLY INTUBATED AND VENTILATED AT 30% FIO2, SO2 100%. CARDIACSCOPE SHOWS ON ATRIAL FLUTTER HR 58/MIN. COMMENCING ON TPN 50 ML/HR VIA CENTRAL LINE ON LEFT SUBCLAVIAN AND ON HEPARIN DRIP AT 350 UNIT/HR VIA PERIPHERAL LINE ON RIGHT ARM. ABDOMEN IS SOFT, HYPOACTIVE BOWEL SOUNDS. NO AVAILABLE NGT/OGT AT THIS TIME THERE WAS DIFFICULTY OR UNABLE TO INSERT ONE ENDORSED BY DAY SHIFT NURSE. WITH CORONADO CATH PLACE TO GRAVITY DRAINAGE BAG DRAINING TO CLEAR YELLOW URINE OUTPUT; PATENT AND INTACT. WITH BILATERAL SOFT WRIST RESTRAINTS IN PLACE
[2019-10-19] MEDS: MULTIVITAMIN IV SCH ×3 (20:42)
[2019-10-19] MEDS: DEXTROSE IV SCH ×3 (20:42)
[2019-10-19] MEDS: AMINO ACIDS 8.5% IV SCH ×3 (20:42)
[2019-10-19] MEDS: hePARIN / DEXT 5% PREMIX 250 ML IV SCH (20:58)
[2019-10-19] MEDS: MIRTAZAPINE 15 MG TAB PO SCH (21:00)
[2019-10-19] MEDS: ATORVASTATIN 20 MG TAB PO SCH (21:00)
--- NOTE | 2019-10-19 22:00 | NUR ---
TURNED AND AND REPOSITIONED PATIENT; ORAL CARE DONE WITH VAP KIT.
[2019-10-20] VITALS (18 sets, daily range): BP systolic 93–180; BP diastolic 44–92
--- NOTE | 2019-10-20 | NUR ---
HEPARIN DRIP DOSE ADJUSTED PER APTT RESULT.
[2019-10-20] MEDS: BLOOD GLUCOSE MONITORING 1 DEV DEV MC SCH ×4 (00:02→18:00)
[2019-10-20] MEDS: PIPERACILLIN/TAZOBACTAM 2.25 GM in DEXTROSE 5% 50 ML IV SCH ×2 (01:00→17:37)
[2019-10-20] MEDS: Z-GUARD PASTE TP SCH ×2 (04:30→12:53)
--- NOTE | 2019-10-20 04:30 | NUR ---
MORNING BED BATH DONE; WOUND CARE DONE.
[2019-10-20 06:18] LABS: BASOPHILS # (AUTO) 0.1 K/uL (0.00-0.22); BASOPHILS % (AUTO) 1.3 % (0.0-2.0); EOSINOPHILS # (AUTO) 0.1 K/uL (0-0.4); EOSINOPHILS % (AUTO) 0.9 % (0.0-4.0); HEMOGLOBIN 10.5 g/dL (12.0-18.0); LYMPHOCYTES # (AUTO) 0.9 K/uL (2.0-11.5); LYMPHOCYTES % (AUTO) 9.6 % (20.5-51.1); MEAN CORPUSCULAR HEMOGLOBIN 24 pg (27-31); MEAN CORPUSCULAR HGB CONC 32 g/dL (33-37); MEAN CORPUSCULAR VOLUME 75.7 fL (80-94); MONOCYTES # (AUTO) 0.7 K/uL (0.8-1.0); MONOCYTES % (AUTO) 7.4 % (1.7-9.3); NEUTROPHILS # (AUTO) 7.2 K/uL (1.8-7.7); NEUTROPHILS % (AUTO) 80.8 % (42.2-75.2); PLATELET COUNT (AUTO) 111 K/uL (140-450); RED BLOOD CELL COUNT(AUTO) 4.36 MIL/uL (4.20-6.10); RED CELL DISTRIBUTION WIDTH 15.6 % (11.6-13.7); WHITE BLOOD COUNT (AUTO) 8.9 K/uL (4.8-10.8)
[2019-10-20 06:51] LABS: ANION GAP 18.6 (8-16); CARBON DIOXIDE 20.8 mmol/L (21-32); CHLORIDE 98 mmol/L (98-107); GLUCOSE 360 mg/dL (74-106); POTASSIUM 3.4 mmol/L (3.5-5.1); SODIUM SERUM 134 mmol/L (136-145); UREA NITROGEN, BLOOD 52 mg/dL (7-18)
[2019-10-20 06:57] LABS: MAGNESIUM 2.3 mg/dL (1.8-2.4); PHOSPHORUS 3.9 mg/dL (2.5-4.9)
--- NOTE | 2019-10-20 07:15 | NUR ---
ENDORSED TO AM SHIFT RN FOR CONTINUITY OF CARE.
[2019-10-20] MEDS ORDERED: HEPARIN PER PHARMACY MC PRN (07:35)
[2019-10-20] MEDS: INSULIN LISPRO SLIDING SCALE 100 UNITS/ML VIAL SUBQ PRN ×3 (07:38→19:06)
[2019-10-20 08:23] LABS: CREATININE 4.2 mg/dL (0.6-1.3)
[2019-10-20] MEDS: GABAPENTIN 300 MG CAP PO SCH ×2 (09:00→20:17)
[2019-10-20] MEDS: OXYBUTYNIN 5 MG TAB PO SCH (09:00)
[2019-10-20] MEDS: METOPROLOL 25 MG TAB PO SCH (09:00)
[2019-10-20] MEDS: ASPIRIN 81 MG TAB.CHEW PO SCH (09:00)
[2019-10-20] MEDS: BENAZEPRIL 20 MG TAB PO SCH (09:00)
[2019-10-20] MEDS: LINEZOLID 600MG PREMIX 300 ML IV SCH ×2 (09:12→20:16)
[2019-10-20] MEDS: PANTOPRAZOLE 40 MG INJ VIAL IVP SCH (09:12)
[2019-10-20] MEDS: DEXAMETHASONE 4 MG/ML VIAL IVP SCH (09:13)
[2019-10-20] MEDS: INSULIN LANTUS 100 UNITS/ML 10 ML VIAL SUBQ SCH (09:16)
[2019-10-20] MEDS ORDERED: DEXT 5% /NACL 0.9% 1,000 ML IV SCH (10:20)
--- NOTE | 2019-10-20 19:07 | NUR ---
spoke to lino in pharmacy regarding patients heparin gtt and ptt. pt peripheral IV heparin gtt was running to appears to be infiltrated. gtt moved to central line and recheck of ptt to be ordered in 6 hours.
--- NOTE | 2019-10-20 19:29 | NUR ---
recieved endorsing report from day shift nurse. assumed pt care at this time.
[2019-10-20] MEDS: MULTIVITAMIN IV SCH ×6 (20:00→20:37)
[2019-10-20] MEDS: DEXTROSE IV SCH ×6 (20:00→20:37)
[2019-10-20] MEDS: AMINO ACIDS 8.5% IV SCH ×6 (20:00→20:37)
[2019-10-20] MEDS: ATORVASTATIN 20 MG TAB PO SCH (20:17)
[2019-10-20] MEDS: MIRTAZAPINE 15 MG TAB PO SCH (20:18)
[2019-10-21] VITALS (32 sets, daily range): BP systolic 105–178; BP diastolic 35–98
[2019-10-21] MEDS: Z-GUARD PASTE TP SCH ×2 (00:11→12:04)
--- NOTE | 2019-10-21 00:35 | NUR ---
PHONE CALL TO DR ANGEL RE BS 415; TO GIVEN 10 UNITS HUMALOG AND CHANGE IVF TO NS AT 50ML/HR
[2019-10-21] MEDS: BLOOD GLUCOSE MONITORING 1 DEV DEV MC SCH ×4 (00:41→18:00)
[2019-10-21] MEDS: INSULIN LISPRO SLIDING SCALE 100 UNITS/ML VIAL SUBQ PRN ×4 (00:42→18:03)
[2019-10-21] MEDS: PIPERACILLIN/TAZOBACTAM 2.25 GM in DEXTROSE 5% 50 ML IV SCH ×3 (01:02→18:00)
--- NOTE | 2019-10-21 01:13 | NUR ---
BLOOD SUGAR 415. INSULIN COVERAGE AT THIS TIME. MD ANGEL NOTIFIED OF RESULTS AND ADVISED TO STOP THE D51/2NS SOLUTION AND START NS 50CC/HR.
[2019-10-21] MEDS: NACL 0.9% 1,000 ML IV SCH (02:05)
[2019-10-21] MEDS ORDERED: hydrALAZINE 20 MG/ML VIAL ONE (03:18)
[2019-10-21] MEDS ORDERED: hydrALAZINE 20 MG/ML VIAL IVP ONE (03:20)
--- NOTE | 2019-10-21 06:00 | NUR ---
BS 491; DR ANGEL AWARE; 10 UNITS HUMALOG ADMINISTERED; VERIFIED WITH SAPNA RN
--- NOTE | 2019-10-21 06:30 | NUR ---
BLOOD SUGAR RECHECKED 500; PHONE CALL TO DR SMITH; MADE AWARE OF THE ABOVE.NEW ORDER RECEIVED TO INCREASE LANTUS TO 20 UNITS AT 0900
[2019-10-21] MEDS ORDERED: hydrALAZINE 20 MG/ML VIAL IVP PRN (06:40)
[2019-10-21 06:47] LABS: MAGNESIUM 2.6 mg/dL (1.8-2.4); PHOSPHORUS 3.7 mg/dL (2.5-4.9)
[2019-10-21 06:49] LABS: ANION GAP 17.4 (8-16); CARBON DIOXIDE 20.3 mmol/L (21-32); CHLORIDE 98 mmol/L (98-107); POTASSIUM 3.7 mmol/L (3.5-5.1); SODIUM SERUM 132 mmol/L (136-145); UREA NITROGEN, BLOOD 59 mg/dL (7-18)
[2019-10-21 06:53] LABS: CREATININE 4.4 mg/dL (0.6-1.3); GLUCOSE 484 mg/dL (74-106)
[2019-10-21 07:00] LABS: BASOPHILS # (AUTO) 0.1 K/uL (0.00-0.22); BASOPHILS % (AUTO) 0.6 % (0.0-2.0); EOSINOPHILS % (AUTO) 0.5 % (0.0-4.0); HEMATOCRIT 31.2 % (36-52); LYMPHOCYTES # (AUTO) 0.8 K/uL (2.0-11.5); LYMPHOCYTES % (AUTO) 8.6 % (20.5-51.1); MEAN CORPUSCULAR HEMOGLOBIN 24 pg (27-31); MEAN CORPUSCULAR HGB CONC 32 g/dL (33-37); MEAN CORPUSCULAR VOLUME 75.6 fL (80-94); MONOCYTES # (AUTO) 0.5 K/uL (0.8-1.0); MONOCYTES % (AUTO) 5.6 % (1.7-9.3); NEUTROPHILS # (AUTO) 7.8 K/uL (1.8-7.7); NEUTROPHILS % (AUTO) 84.7 % (42.2-75.2); PLATELET COUNT (AUTO) 106 K/uL (140-450); RED BLOOD CELL COUNT(AUTO) 4.12 MIL/uL (4.20-6.10); RED CELL DISTRIBUTION WIDTH 15.1 % (11.6-13.7); WHITE BLOOD COUNT (AUTO) 9.2 K/uL (4.8-10.8)
--- NOTE | 2019-10-21 07:00 | NUR ---
REPORT GIVEN TO MARTINEZ PAGE
[2019-10-21] MEDS: ASPIRIN 81 MG TAB.CHEW PO SCH (07:33)
[2019-10-21] MEDS: OXYBUTYNIN 5 MG TAB PO SCH (07:34)
[2019-10-21] MEDS: METOPROLOL 25 MG TAB PO SCH (07:34)
[2019-10-21] MEDS: BENAZEPRIL 20 MG TAB PO SCH (07:35)
[2019-10-21] MEDS: GABAPENTIN 300 MG CAP PO SCH ×2 (07:35→20:04)
[2019-10-21] MEDS: PANTOPRAZOLE 40 MG INJ VIAL IVP SCH (09:02)
[2019-10-21] MEDS: DEXAMETHASONE 4 MG/ML VIAL IVP SCH (09:02)
[2019-10-21] MEDS: INSULIN LANTUS 100 UNITS/ML 10 ML VIAL SUBQ SCH (09:07)
[2019-10-21] MEDS: LINEZOLID 600MG PREMIX 300 ML IV SCH ×2 (09:55→20:02)
--- NOTE | 2019-10-21 14:08 | NUR ---
CPAP TRIAL BEGAN AT 12:20. DR. PETERS ORDERED ABG AT 1303. ABG DONE AND RESULTS GIVEN TO DR. PETERS. EXTUBATION ORDERS ISSUED. EXTUBATED PT AT 1400 AND PLACED ON 2L NC. HR 78. SAT 99%. WILL CONTINUE TO MONITOR.
--- NOTE | 2019-10-21 14:11 | NUR ---
10/21/19 RD FOLLOW UP COMPLETED PLEASE REFER TO NUTRITION ASSESSMENT UNDER CARE ACTIVITY FOR ESTIMATED NUTRITIONAL NEEDS. 1. CONTINUE CURRENT TPN D10%, AA 3.25% @ 75 ML/HR -THIS PROVIDES 846 KCAL AND 59 GM OF PROTEIN 2. CONSIDER GRADUALLY INCREASING TPN TO MEET 75% OF ESTIMATED NUTRIENT NEEDS 3. IF PEG IS PLACED, CONSIDER NEPRO 1.8 @ 50 ML/HR X 24 HR -THIS WILL PROVIDE 2160 JESSICA AND 97 GM OF PROTEIN 4. RD TO FOLLOW-UP 2-3 DAYS, HIGH RISK IVONNE RITCHIE RD
[2019-10-21] MEDS: hePARIN / DEXT 5% PREMIX 250 ML IV SCH (16:30)
--- NOTE | 2019-10-21 16:38 | NUR ---
0423 REPORT WAS RECEIVED FROM, PT ASSESSED. HEPARIN GTT RUNNING AT 550 UNITS/HR. PT AROUSABLE BUT DOES NOT FOLLOW COMMANDS, ABLE TO MOVE ALL EXTREMITIES. ETT IN PLACE AND SECURED. LEFT SUBCLAVIAN TLC CLEAN DRY AND INTACT INFUSING TPN, HEPARIN AND IV FLUID. TURNED PATIENT AND ASSESSED SKIN INCLUDING SACRAL WOUND. PT STABLE AT THIS TIME 1400 PT EXTUBATED BY RT PER PHYSICIAN ORDER. ASSESSED PT, PT NOT VERBALIZING, MELISSA ORIENTATION LEVEL. PT STILL NOT FOLLOWING COMMANDS BUT IS PURPOSEFUL IN MOVEMENT OF EXTREMITIES. PT NOTED TO HAVE STRONG PRODUCTIVE COUGH WITH COPIUS AMOUNT OF MODERATELY THINK WHITLEY CREAMY SECRETIONS. 1635 PTT RESULTED. SPOKE TO PHARMACIST REGARDING RESULT OF 29.5 AND ORDER CALLING FOR BOLUS AND DRIP TO BE ADJUSTED. ON PREVIOUS SHIFT GTT HAD BEEN 800 UNITS/HR AND THE PTT >150. PHARMACIST AWARE, ADVISED TO CHECK LINE AND REDRAW PTT NOW BEFORE MAKING ADJUSTMENT.
--- NOTE | 2019-10-21 19:15 | NUR ---
RECEIVED REPORT FROM KAYLEE HENRIQUEZ. PATIENT IS NONVERBAL AND RESPONDS TO PAIN. RESPIRATIONS ARE UNLABORED AND SYMMETRICAL; RHONCHI AND DIMINISHED BILATERALLY. INTERMITTENT COUGH WITH THICK, WHITE SECRETIONS NOTED. 2L. N/C; 98% SPO2. RIJ DOUBLE LUMEN NOTED; LEFT SUBCLAVIAN TLC WITH GOOD BLOOD REPORT; INFUSING TPN AT 75ML/HR; HEPARIN DRIP AT 700 UNITS/HR. AND ORDERED IV FLUIDS. AFIB NOTED ON MONITOR. GENERALIZED EDEMA NOTED; EXTREMITIES ELEVATED. CORONADO CATHETER TO BSD DRAINING ADEQUATE AMOUNT OF YELLOW URINE. SACRAL PRESSURE ULCER NOTED WITH DRY/INTACT DRESSING. NO PAIN NOTED. REPOSITIONED.
[2019-10-21] MEDS: MULTIVITAMIN IV SCH ×3 (20:03)
[2019-10-21] MEDS: DEXTROSE IV SCH ×3 (20:03)
[2019-10-21] MEDS: AMINO ACIDS 8.5% IV SCH ×3 (20:03)
[2019-10-21] MEDS: MIRTAZAPINE 15 MG TAB PO SCH (20:04)
[2019-10-21] MEDS: ATORVASTATIN 20 MG TAB PO SCH (20:04)
[2019-10-22] VITALS (10 sets, daily range): BP systolic 134–166; BP diastolic 55–99
--- NOTE | 2019-10-22 | NUR ---
PT REPOSITIONED.ORAL CARE DONE.NO SOB NOTED ON ROOM AIR.NO PAIN NOTED
[2019-10-22] MEDS: NACL 0.9% 1,000 ML IV SCH ×2 (00:26→16:23)
[2019-10-22] MEDS: PIPERACILLIN/TAZOBACTAM 2.25 GM in DEXTROSE 5% 50 ML IV SCH ×3 (00:26→16:23)
[2019-10-22] MEDS: BLOOD GLUCOSE MONITORING 1 DEV DEV MC SCH ×4 (00:33→16:24)
[2019-10-22] MEDS: INSULIN LISPRO SLIDING SCALE 100 UNITS/ML VIAL SUBQ PRN ×4 (00:34→16:40)
[2019-10-22] MEDS: Z-GUARD PASTE TP SCH ×2 (00:34→11:13)
--- NOTE | 2019-10-22 04:30 | NUR ---
MORNING CARE DONE.ORAL CARE RENDERED.NO BM NOTED.STILL ON 02NC AT 2LPM.TOLERATING.NO PAIN NOTED
[2019-10-22 04:59] LABS: BASOPHILS % (AUTO) 0.1 % (0.0-2.0); EOSINOPHILS # (AUTO) 0.1 K/uL (0-0.4); EOSINOPHILS % (AUTO) 0.6 % (0.0-4.0); HEMATOCRIT 29.4 % (36-52); HEMOGLOBIN 9.3 g/dL (12.0-18.0); LYMPHOCYTES # (AUTO) 0.8 K/uL (2.0-11.5); LYMPHOCYTES % (AUTO) 7.5 % (20.5-51.1); MEAN CORPUSCULAR HEMOGLOBIN 24 pg (27-31); MEAN CORPUSCULAR HGB CONC 32 g/dL (33-37); MEAN CORPUSCULAR VOLUME 75.3 fL (80-94); MONOCYTES # (AUTO) 0.7 K/uL (0.8-1.0); MONOCYTES % (AUTO) 6.5 % (1.7-9.3); NEUTROPHILS # (AUTO) 9.1 K/uL (1.8-7.7); NEUTROPHILS % (AUTO) 85.3 % (42.2-75.2); PLATELET COUNT (AUTO) 110 K/uL (140-450); RED CELL DISTRIBUTION WIDTH 15.4 % (11.6-13.7); WHITE BLOOD COUNT (AUTO) 10.6 K/uL (4.8-10.8)
[2019-10-22 05:14] LABS: ANION GAP 15.1 (8-16); CARBON DIOXIDE 20.7 mmol/L (21-32); CHLORIDE 102 mmol/L (98-107); CREATININE 3.5 mg/dL (0.6-1.3); GLUCOSE 265 mg/dL (74-106); POTASSIUM 3.8 mmol/L (3.5-5.1); SODIUM SERUM 134 mmol/L (136-145); UREA NITROGEN, BLOOD 48 mg/dL (7-18)
[2019-10-22 05:25] LABS: PHOSPHORUS 3.5 mg/dL (2.5-4.9)
--- NOTE | 2019-10-22 07:05 | NUR ---
REPORT GIVEN TO JONA PAGE.PT AWAKE TRACKS; STILL ON 02NC AT 2LPM.NO SOB NOTED.TLC TO LT SC INTACT INFUSING ORDERED IVF/HEPARIN AND TPN
--- NOTE | 2019-10-22 07:22 | NUR ---
Received report from Zehra PAGE and Roya PAGE
--- NOTE | 2019-10-22 07:46 | NUR ---
Dr Oneal at bedside.
--- NOTE | 2019-10-22 07:47 | NUR ---
Pt laying in left lateral positioned, pressure sites offloaded. Pt awake and able to track, with incomprehensible words, unable to follow commands. Pt with intermittent productive cough. Afebrile at 97.9 oral. Spo2 100% on O2 2L NC, RR 24 even and tachypnic with no labored breathing. Lung sounds with mild rhochi anterior BL. S1S2 present, BP 140/55, HR 81, A.fib on monitor. BUE hand and BLE feet edema pitting +1 noted. Pt able to move R arm well (with L sided weakness due to past CVA). Heparin drip, TPN infusion, infusing well on L chest subclavian central line. R IJ magdy cath noted with dressing.
[2019-10-22] MEDS: ASPIRIN 81 MG TAB.CHEW PO SCH (08:10)
[2019-10-22] MEDS: METOPROLOL 25 MG TAB PO SCH (08:11)
[2019-10-22] MEDS: BENAZEPRIL 20 MG TAB PO SCH (08:11)
[2019-10-22] MEDS: OXYBUTYNIN 5 MG TAB PO SCH (08:11)
[2019-10-22] MEDS: GABAPENTIN 300 MG CAP PO SCH ×2 (08:12→21:00)
[2019-10-22] MEDS: DEXAMETHASONE 4 MG/ML VIAL IVP SCH (08:13)
[2019-10-22] MEDS: PANTOPRAZOLE 40 MG INJ VIAL IVP SCH (08:14)
[2019-10-22] MEDS: INSULIN LANTUS 100 UNITS/ML 10 ML VIAL SUBQ SCH (08:17)
[2019-10-22] MEDS: LINEZOLID 600MG PREMIX 300 ML IV SCH ×2 (08:17→09:09)
--- NOTE | 2019-10-22 08:22 | NUR ---
RT Darrius made aware of chest physiotherapy. Received TORB order for duoneb q4h INH from Dr Oneal. RT Darrius made aware.
--- NOTE | 2019-10-22 09:07 | NUR ---
PTT 33.8, heparin bolus 3500 units administered IV, heparin drip increased to 1000 units/hr, verified by 2 RNs (with Juan RN). PTT timed draw ordered at 1504.
--- NOTE | 2019-10-22 09:22 | NUR ---
Received call from pt's brother Charles [phone], updated on pt status and plan of care.
--- NOTE | 2019-10-22 09:26 | NUR ---
Pt's brother Charles requested to speak with Dr Ernst, called Dr Ernst office to leave message.
--- NOTE | 2019-10-22 10:14 | NUR ---
Per Jarrod BROKER ASSISTANT, pt failed swallow eval.
--- NOTE | 2019-10-22 10:44 | NUR ---
ST CLARIFICATION NOTE BEDSIDE SWALLOW EVAL DONE. Pt DEMONSTRATED SEVERE OROPHARYNGEAL DYSPHAGIA. Pt WAS UNABLE TO MAINTAIN OWN SALIVA & SECRETIONS, REQUIRING SUCTION PRE, DURING, AND POST SWALLOW EVAL. Pt DEMONSTRATED SLOWED AP TRANSFER AND DELAYED SWALLOW RESPONSES FOR ICE CHIPS, THIN BY TSP, AND HTL BY TSP. SWALLOWS APPEARED EFFORTFUL. ALL TRIALS WERE FOLLOWED BY WET GURGLE AND POOR AIRWAY PROTECTIVE COUGH, REQUIRING ORAL SUCTION TO ASSIST WITH CLEARING ORAL CAVITY AND UPPER PHARYNX. LABIAL LEAKAGE ON LEFT NOTED WITH OWN SALIVA/SECRETIONS, WELL WITH TRIALS. Pt IS AT HIGH RISK FOR ASPIRATION AT THIS TIME. RECOMMEND: 1. KEEP NPO W/ ASPIRATION PRECAUTIONS AND ORAL CARE. 2. ALTERNATE MEANS OF NUTRITION. 3. ST FOR SWALLOW TX ORDERED FOR ONGOING DIET ANALYSIS, OME, LARYNGEAL & PHARYNGEAL EXERCISES, AND Pt/CG EDUCATION. RED MONTEIRO MS, CCC-IRONER MACHINE
[2019-10-22] MEDS: ALBUTEROL SULFATE/IPRATROPIU 3 ML SOL IH SCH ×4 (11:00→23:00)
--- NOTE | 2019-10-22 11:24 | NUR ---
Pt laying in bed, awake and able to track with eyes, makes incomprehensible sounds, unable to follow commands, Spo2 99% on O2 2L NC, RR 26 even and tachypnic with no labored breathing. Intermittent productive cough noted. BP 152/69, HR 80, A.fib with occasional PVC on monitor. No bowel movement noted, sacral wound cleansed, z-guard applied, optifoam changed. Oral care provided. Berumen cath draining clear yellow urine. Heparin drip, TPN infusion and maintainance fluid NS infusing well on L subclavian, 3x lumen. L subclavian central line dressing changed. All needs met.
--- NOTE | 2019-10-22 13:10 | NUR ---
WOUND CARE RE-EVALUATION NOTE: -COCCYX PRESSURE INJURY STAGE 2 2X2CM SUPERFICIAL DEPTH , AREA MOIST. NO ODOR WITH SURROUNDING SKIN REDNESS WITH FURTHER DAMAGE INDICATED. -BILATERAL HEELS BLANCHABLE REDNESS RESOLVED WILL CONTINUE CURRENT TREATMENT AND MOISTURE CONTROL, KEEP SKIN DRY AND CLEAN AT ALL TIMES.
--- NOTE | 2019-10-22 14:30 | NUR ---
Per Dr Sy, monitor and re-evaluate swallow evaluation tomorrow, g-tube placement pending on swallow evaluation tomorrow.
--- NOTE | 2019-10-22 15:19 | NUR ---
AWAKE AND ALERT OROPHARYNGEAL SUCTION FOR LARGE THIN WHITLEY SECRETIONS TOLERATED WELL
--- NOTE | 2019-10-22 15:51 | NUR ---
PTT 88.2, Heparin drip decreased to 850 units/hr, witnessed by 2 RN verification Juan Mcfarland RN
--- NOTE | 2019-10-22 16:28 | NUR ---
Pt turned and repositioned to R laying position, offloaded pressure areas. Pt awake and able to track with eyes, makes incomprehensible sounds, unable to follow commands, Spo2 100% on O2 2L NC, RR 20 even and unlabored. Intermittent productive cough noted. BP 150/72, HR 84, A.fib with occasional PVC on monitor. Oral care provided. Berumen cath draining clear giuseppe urine. Heparin drip infusing at 850units/hr, TPN infusion at 75ml/hr and Zosyn infusing at 100ml/hr on L subclavian, 3x lumen. All needs met.
--- NOTE | 2019-10-22 18:00 | NUR ---
RECEIVED REPORT FROM ICU NURSE. WITH ADMITTING DX OF SEPSIS AND PNA COVID. PT IS AOX1, RESPONDS TO NAME, ABLE TO FOLLOW COMMANDS, WITH EXPRESSIVE APHASIA, WITH LEFT SIDED WEAKNESS. ON 2L O2 VIA NC. FLACC 0, NO SOB RESPIRATIONS ARE EVEN AND UNLABORED, NO APPARENT DISTRESS. O2SAT 100%. WITH TRIPLE LUMEN RIGHT SUBCLAVIAN CENTRAL LINE RUNNING HEPARIN DRIP 850 UNITS/HR, NS AT 50CC/HR, AND TPN AT 75CC/HR. INFUSING WELL. CORONADO CATHETER INTACT AND PATENT. DRAINING CLEAR ELLEN URINE. ISOLATION PRECAUTION OBSERVED. SAFETY PRECAUTIONS IN PLACE. CALL LIGHT WITHIN REACH. WILL CONTINUE TO MONITOR
--- NOTE | 2019-10-22 18:00 | NUR ---
Called report to Remi PAGE, pt transferred to 124A
--- NOTE | 2019-10-22 19:00 | NUR ---
PT IN BED. FLACC 0, RESPIRATIONS ARE EVEN AND UNLABORED. WILL ENDORSE TO NEXT SHIFT FOR CONTINUITY OF CARE
--- NOTE | 2019-10-22 19:12 | NUR ---
RECEIVED REPORT FROM AM NURSE. PT IS AOX1, RESPONDS TO NAME, ABLE TO FOLLOW COMMANDS, WITH EXPRESSIVE APHASIA, WITH LEFT SIDED WEAKNESS. ON 2L O2 VIA NC. RESPIRATIONS ARE EVEN AND UNLABORED, NO APPARENT DISTRESS. O2SAT 100%. WITH TRIPLE LUMEN RIGHT SUBCLAVIAN CENTRAL LINE RUNNING HEPARIN DRIP 850 UNITS/HR, NS AT 50ML/HR, AND TPN AT 75ML/HR. INFUSING WELL. CORONADO CATHETER INTACT AND PATENT. ISOLATION PRECAUTION OBSERVED. SAFETY PRECAUTIONS IN PLACE. CALL LIGHT WITHIN REACH. WILL CONTINUE TO MONITOR
[2019-10-22] MEDS: MULTIVITAMIN IV SCH ×3 (20:00)
[2019-10-22] MEDS: AMINO ACIDS 8.5% IV SCH ×3 (20:00)
[2019-10-22] MEDS: DEXTROSE IV SCH ×3 (20:00)
[2019-10-22] MEDS: MIRTAZAPINE 15 MG TAB PO SCH (21:00)
[2019-10-22] MEDS: ATORVASTATIN 20 MG TAB PO SCH (21:00)
--- NOTE | 2019-10-22 21:13 | NUR ---
ADMINISTERED SCHEDULED MEDICATION. PATIENT TOLERATED WELL. WILL CONTINUE TO MONITOR.
--- NOTE | 2019-10-22 23:13 | NUR ---
PATIENT SLEEPING IN BED. NO SIGNS OF DISTRESS NOTED. WILL CONTINUE TO MONITOR.
--- NOTE | 2019-10-22 23:55 | NUR ---
PTT IS 32.1. ADMINISTERED HEPARIN BOLUS OF 3500 UNITS AND INCREASED RATE TO 1150UNITS/HR.
[2019-10-22] MEDS: hePARIN / DEXT 5% PREMIX 250 ML IV SCH (23:59)
[2019-10-23] MEDS: LINEZOLID 600MG PREMIX 300 ML IV SCH ×3 (00:03→20:39)
[2019-10-23] MEDS: hePARIN / DEXT 5% PREMIX 250 ML IV SCH ×2 (00:29→11:50)
[2019-10-23] MEDS: AMINO ACIDS IV SCH ×8 (00:30→20:14)
[2019-10-23] MEDS: MULTIVITAMIN IV SCH ×8 (00:30→20:14)
[2019-10-23] MEDS: [UNRECOGNIZED DRUG - OTHER] IV SCH ×8 (00:30→20:14)
[2019-10-23] MEDS: DEXTROSE IV SCH ×8 (00:30→20:14)
--- NOTE | 2019-10-23 01:13 | NUR ---
ADMINISTERED SCHEDULED MED. PATIENT TOLERATED WELL. WILL CONTINUE TO MONITOR.
[2019-10-23] MEDS: INSULIN LISPRO SLIDING SCALE 100 UNITS/ML VIAL SUBQ PRN ×3 (01:17→12:23)
[2019-10-23] MEDS: Z-GUARD PASTE TP SCH ×2 (01:20→13:24)
[2019-10-23] MEDS: PIPERACILLIN/TAZOBACTAM 2.25 GM in DEXTROSE 5% 50 ML IV SCH ×3 (01:29→17:14)
[2019-10-23] MEDS: ALBUTEROL SULFATE/IPRATROPIU 3 ML SOL IH SCH ×6 (02:00→23:53)
--- NOTE | 2019-10-23 03:06 | NUR ---
PATIENT SLEEPING IN BED. NO SIGNS OF DISTRESS NOTED. WILL CONTINUE TO MONITOR.
[2019-10-23 04:00] VITALS: BP 115/59
--- NOTE | 2019-10-23 05:39 | NUR ---
PATIENT SLEEPING IN BED. NO SIGNS OF DISTRESS NOTED. WILL CONTINUE TO MONITOR.
[2019-10-23] MEDS: BLOOD GLUCOSE MONITORING 1 DEV DEV MC SCH ×4 (06:24→18:04)
[2019-10-23 06:55] LABS: BASOPHILS # (AUTO) 0.1 K/uL (0.00-0.22); EOSINOPHILS # (AUTO) 0.1 K/uL (0-0.4); EOSINOPHILS % (AUTO) 0.7 % (0.0-4.0); HEMATOCRIT 26.9 % (36-52); HEMOGLOBIN 8.5 g/dL (12.0-18.0); LYMPHOCYTES # (AUTO) 0.9 K/uL (2.0-11.5); LYMPHOCYTES % (AUTO) 7.3 % (20.5-51.1); MEAN CORPUSCULAR HEMOGLOBIN 24 pg (27-31); MEAN CORPUSCULAR HGB CONC 32 g/dL (33-37); MEAN CORPUSCULAR VOLUME 75.8 fL (80-94); MONOCYTES # (AUTO) 0.7 K/uL (0.8-1.0); MONOCYTES % (AUTO) 6.2 % (1.7-9.3); NEUTROPHILS % (AUTO) 84.8 % (42.2-75.2); PLATELET COUNT (AUTO) 103 K/uL (140-450); RED BLOOD CELL COUNT(AUTO) 3.55 MIL/uL (4.20-6.10); RED CELL DISTRIBUTION WIDTH 15.3 % (11.6-13.7); WHITE BLOOD COUNT (AUTO) 11.8 K/uL (4.8-10.8)
--- NOTE | 2019-10-23 07:12 | NUR ---
ENDORSED CONTINUITY OF CARE TO AM NURSE. PATIENT IS IN STABLE CONDITION.
--- NOTE | 2019-10-23 07:15 | NUR ---
RECEIVED BEDSIDE REPORT FROM NIGHTSHIFT NURSE. PT RESTING IN BED. ABLE TO MAKE NEEDS KNOWN. RESPIRATIONS EVEN AND UNLABORED WITH NO SOB OR RESPIRATORY DISTRESS. SKIN WARM AND DRY TO TOUCH. PICC LINE IN LEFT SUBCLAVIAN TRIPLE LUMEN AND R UPPER ARM DOUBLE LUMEN IS CLEAN, DRY, AND INTACT. SAFETY MEASURES IN PLACE. WILL CONTINUE TO MONITOR
[2019-10-23 07:48] LABS: ALBUMIN 1.9 g/dL (3.4-5.0); ANION GAP 16.9 (8-16); ASPARTATE AMINOTRANSFERASE 23 U/L (15-37); CARBON DIOXIDE 18.5 mmol/L (21-32); CHLORIDE 105 mmol/L (98-107); CREATININE 3.6 mg/dL (0.6-1.3); GLUCOSE 244 mg/dL (74-106); MAGNESIUM 1.9 mg/dL (1.8-2.4); PHOSPHORUS 3.2 mg/dL (2.5-4.9); POTASSIUM 4.4 mmol/L (3.5-5.1); SODIUM SERUM 136 mmol/L (136-145); TOTAL BILIRUBIN 0.4 mg/dL (0.0-1.0); UREA NITROGEN, BLOOD 53 mg/dL (7-18)
[2019-10-23 08:00] VITALS: BP 150/79
[2019-10-23] MEDS: ASPIRIN 81 MG TAB.CHEW PO SCH (08:25)
[2019-10-23] MEDS: OXYBUTYNIN 5 MG TAB PO SCH (08:25)
[2019-10-23] MEDS: DEXAMETHASONE 4 MG/ML VIAL IVP SCH (08:25)
[2019-10-23] MEDS: BENAZEPRIL 20 MG TAB PO SCH (08:26)
[2019-10-23] MEDS: METOPROLOL 25 MG TAB PO SCH (08:26)
[2019-10-23] MEDS: GABAPENTIN 300 MG CAP PO SCH ×2 (08:26→20:52)
[2019-10-23] MEDS: PANTOPRAZOLE 40 MG INJ VIAL IVP SCH (08:32)
[2019-10-23] MEDS: INSULIN LANTUS 100 UNITS/ML 10 ML VIAL SUBQ SCH (08:55)
--- NOTE | 2019-10-23 09:15 | NUR ---
PATIENT NPO UNTIL SPEECH SEES PATIENT. SAFETY MEASURES IN PLACE. WILL CONTINUE TO MONITOR
--- NOTE | 2019-10-23 10:30 | NUR ---
PT PTT IS 105.5. HEPARIN WILL BE ADJUSTED PRESCRIBED PER MD ORDER. PT TOLERATED WELL. SAFETY MEASURES IN PLACE. WILL CONTINUE TO MONITOR
--- NOTE | 2019-10-23 11:30 | NUR ---
PT HEPARIN IS NOW RUNNING AT 900 UNITS/HR. SAFETY MEASURES IN PLACE. WILL CONTINUE TO MONITOR
[2019-10-23 12:00] VITALS: BP 134/76
--- NOTE | 2019-10-23 12:00 | NUR ---
PT BLOOD SUGAR IS 198. PRN INSULIN WILL BE ADMINISTERED WITH NEXT MEAL. SAFETY MEASURES IN PLACE. WILL CONTINUE TO MONITOR
[2019-10-23] MEDS: NACL 0.9% 1,000 ML IV SCH (13:24)
--- NOTE | 2019-10-23 13:24 | NUR ---
ADMINISTERED SCHED MED PRESCRIBED PER MD ORDER. PT TOLERATED WELL. MEDICATION EDUCATION PERFORMED. PT VERBALIZED UNDERSTANDING. SAFETY MEASURES IN PLACE. WILL CONTINUE TO MONITOR.
[2019-10-23] MEDS ORDERED: ALBUMIN HUMAN 25% 50 ML IV SCH (14:30)
--- NOTE | 2019-10-23 15:15 | NUR ---
HD NURSE HERE FOR HD. REPORT GIVEN AT BEDSIDE. SAFETY MEASURES IN PLACE. WILL CONTINUE TO MONITOR
--- NOTE | 2019-10-23 15:49 | NUR ---
SWALLOW TX NOTE FOLLOW-UP FOR SWALLOW TX Pt HAD POOR RESPONSES NOTED IN BEDSIDE SWALLOW EVAL 10/21. Pt WAS INTUBATED FOR 10 DAYS D/T RESPIRATORY FAILURE. CLEARED WITH RN, SHIVANI, FOR FOLLOW-UP. PER CHART, Pt WAS ON REGULAR/THIN LIQUIDS DIET AT [facility] PRIOR TO ADMIT. Pt SEEN BEDSIDE, ON +COVID-19 ISOLATION PRECAUTIONS, EYES-OPEN, ALERT, ON ~1-2L O2 NC, O2 SATS AROUND 97-99% DURING SESSION, ON TPN & LIPIDS, RECEIVING HD. Pt HAD BASELINE DEEP CONGESTION WITH MINIMAL FOAMY RED THIN SECRETIONS REMOVED VIA YANKAUER. Pt CONTINUED TO HAVE NON-PRODUCTIVE COUGH DURING SESSION. ICE CHIPS X6 GIVEN IN BETWEEN COUGHS. Pt HAD FAIR TSP STRIPPING, SLOW BUT FAIR ORAL MANIPULATION OF ICE CHIP, DELAYED SWALLOW TRIGGER, FAIR LARYNGEAL EXCURSION, OCCASIONAL DOUBLE SWALLOWS, COUGHING BEFORE/DURING/AFTER SWALLOW LIKELY 2/2 BASELINE IRRITATION S/P INTUBATION. FURTHER PO TRIALS DEFERRED D/T CONTINUED COUGH RESPONSE. RESULTS AND RECOMMENDATIONS D/W Pt AND RN. P: REC CONTINUE NPO, ORAL CARE EVERY 2-4 HOURS, 5-10 ICE CHIPS WITH RN AFTER STRICT ORAL CARE REC CONSIDER NON-ORAL MEANS OF NUTRITION AND MEDICATIONS FUNERAL PRE ARRANGEMENT COUNSELOR F/U FOR ONGOING SWALLOW ANALYSIS
--- NOTE | 2019-10-23 15:57 | NUR ---
HEMODIALYSIS COMPLETED AWAKE AND ALERT FOLLOWS TICKER MAINTAINER COMMANDS OROPHARYNGEAL SUCTION FOR LARGE THIN YELLOW WITH BLOOD TINGE SECRETIONS AIRWAY PATENT
[2019-10-23 16:00] VITALS: BP 103/53
--- NOTE | 2019-10-23 17:14 | NUR ---
PT PTT CAME BACK AT 49.0. NO CHANGES NEEDED AT THIS TIME. WILL CONTINUE TO MONITOR
--- NOTE | 2019-10-23 17:34 | NUR ---
ADMINISTERED SCHED MED PRESCRIBED PER MD ORDER. PT TOLERATED WELL. MEDICATION EDUCATION PERFORMED. PT VERBALIZED UNDERSTANDING. SAFETY MEASURES IN PLACE. WILL CONTINUE TO MONITOR.
--- NOTE | 2019-10-23 18:00 | NUR ---
PT BLOOD SUGAR IS 96. NO INSULIN NEEDED AT THIS TIME. SAFETY MEASURES IN PLACE. WILL CONTINUE TO MONITOR
--- NOTE | 2019-10-23 18:00 | NUR ---
HD COMPLETE. 1L WAS TAKEN OUT. SAFETY MEASURES IN PLACE. WILL CONTINUE TO MONITOR
--- NOTE | 2019-10-23 18:15 | NUR ---
CHANGED CENTRAL LINE DRESSING DUE TO DRESSING BEING SOILED. PT TOLERATED WELL. SAFETY MEASURES IN PLACE. WILL CONTINUE TO MONITOR
--- NOTE | 2019-10-23 19:09 | NUR ---
RECEIVED PT FROM AM SHIFT. PT SEEN AND ASSESSED. PT ON 2L NC WITH SPO2 OF 94%. RHONCHI BREATH SOUNDS. PT IN NO APPARENT RESPIRATORY DISTRESS AT THIS TIME. HHN TX GIVEN AND PT TOLERATED WELL WITH NO ADVERSE REACTION. CPT COMPLETED AT THIS TIME. WILL CONTINUE TO MONITOR PT.
--- NOTE | 2019-10-23 19:25 | NUR ---
RECEIVED ENDORSEMENT FROM KAYLEE PARRISH. ON 2L NASAL CANNULA, O2 SAT WNL. RESPIRATION EVEN AND UNLABORED, NO SOB, HAS, LEFT SUBCLAVIAN 3 LUMENS, INFUSING NS AT 50CC/HR, AND TPN INFUSING. ON NPO, HAS RIGHT ALLAN CATH FOR DIALYSIS. FALL RISK IN PLACE, DROPLET PRECAUTION OBSERVED FOR COVID +. PLAN OF CARE DISCUSSED, CALL LIGHT WITHIN REACH.
--- NOTE | 2019-10-23 19:25 | NUR ---
ENDORSED TO NIGHTSHIFT FOR CONTINUITY OF CARE. PT IS STABLE.
[2019-10-23 20:00] VITALS: BP 102/53
--- NOTE | 2019-10-23 20:39 | NUR ---
ZYVOX IV GIVEN ORDERED, TOLERATED WELL, NO A/R NOTED.
[2019-10-23] MEDS: ATORVASTATIN 20 MG TAB PO SCH (20:51)
[2019-10-23] MEDS: MIRTAZAPINE 15 MG TAB PO SCH (20:53)
--- NOTE | 2019-10-23 21:00 | NUR ---
PATIENT DID NOT PASS SWALLOW EVAL, THUS ALL DUE MEDS PO AT 2100 WAS NOT GIVEN. THEY WILL DO ANOTHER SWALLOW EVAL TOMORROW 10/24/2019 PER ENDORSEMENT BY KAYLEE PARRISH. ALSO, PATIENT IS CURRENTLY NPO.
--- NOTE | 2019-10-23 21:10 | NUR ---
PATIENT CARE DONE WITH HELP OF TANGLED YARN SPOOL STRAIGHTENER, CLEANSED AD AREA, PAT DRIED, CLEANSED SACRAL ULCER W/NS, PAT DRIED, PUT OPTI FOAM DRESSING. REPOSITIONED. KEPT COMFORTABLE, CALL LIGHT WITHIN REACH.
--- NOTE | 2019-10-23 23:45 | NUR ---
MADE ROUNDS, KEPT CLEAN, DRY AND COMFORTABLE, V/S TAKEN AND RECORDED, NO SOB.
[2019-10-24] VITALS: BP 129/83
[2019-10-24] MEDS: PIPERACILLIN/TAZOBACTAM 2.25 GM in DEXTROSE 5% 50 ML IV SCH ×3 (00:24→17:30)
[2019-10-24] MEDS: BLOOD GLUCOSE MONITORING 1 DEV DEV MC SCH ×4 (00:24→17:15)
[2019-10-24] MEDS: Z-GUARD PASTE TP SCH ×2 (00:25→12:45)
--- NOTE | 2019-10-24 01:03 | NUR ---
RECEIVED A PTT RESULT 58.8. PROTOCOL FOLLOWED. CONTINUE ON HEPARIN DRIP 9ML/HR.
[2019-10-24] MEDS: hePARIN / DEXT 5% PREMIX 250 ML IV SCH (01:06)
[2019-10-24] MEDS: ALBUTEROL SULFATE/IPRATROPIU 3 ML SOL IH SCH ×6 (02:38→23:00)
--- NOTE | 2019-10-24 03:10 | NUR ---
PATIENT IS SLEEPING. NO SOB.
[2019-10-24 04:00] VITALS: BP 128/79
--- NOTE | 2019-10-24 05:15 | NUR ---
GUERDA BLOOD SAMPLE FROM THE CENTRAL LINE, FLUSHED PER PROTOCOL. PATIENT TOLERATED WELL.
[2019-10-24 06:34] LABS: BASOPHILS % (AUTO) 0.2 % (0.0-2.0); EOSINOPHILS # (AUTO) 0.1 K/uL (0-0.4); EOSINOPHILS % (AUTO) 1.3 % (0.0-4.0); HEMATOCRIT 22.7 % (36-52); HEMOGLOBIN 7.4 g/dL (12.0-18.0); LYMPHOCYTES # (AUTO) 0.9 K/uL (2.0-11.5); LYMPHOCYTES % (AUTO) 10.5 % (20.5-51.1); MEAN CORPUSCULAR HEMOGLOBIN 25 pg (27-31); MEAN CORPUSCULAR HGB CONC 33 g/dL (33-37); MEAN CORPUSCULAR VOLUME 75.2 fL (80-94); MONOCYTES # (AUTO) 0.7 K/uL (0.8-1.0); MONOCYTES % (AUTO) 7.9 % (1.7-9.3); NEUTROPHILS # (AUTO) 6.7 K/uL (1.8-7.7); NEUTROPHILS % (AUTO) 80.1 % (42.2-75.2); PLATELET COUNT (AUTO) 82 K/uL (140-450); RED BLOOD CELL COUNT(AUTO) 3.02 MIL/uL (4.20-6.10); WHITE BLOOD COUNT (AUTO) 8.3 K/uL (4.8-10.8)
[2019-10-24 07:10] LABS: ALBUMIN 2.2 g/dL (3.4-5.0); ANION GAP 14.6 (8-16); ASPARTATE AMINOTRANSFERASE 22 U/L (15-37); CARBON DIOXIDE 24.2 mmol/L (21-32); CHLORIDE 102 mmol/L (98-107); CREATININE 2.7 mg/dL (0.6-1.3); GLUCOSE 73 mg/dL (74-106); MAGNESIUM 1.4 mg/dL (1.8-2.4); PHOSPHORUS 2.5 mg/dL (2.5-4.9); POTASSIUM 3.8 mmol/L (3.5-5.1); SODIUM SERUM 137 mmol/L (136-145); TOTAL BILIRUBIN 0.6 mg/dL (0.0-1.0); UREA NITROGEN, BLOOD 31 mg/dL (7-18)
[2019-10-24 07:14] LABS: LACTATE DEHYDROGENASE 237 U/L (85-227)
--- NOTE | 2019-10-24 07:29 | NUR ---
RECEIVED REPORT FROM RIG HAND NURSE FOR CONTINUITY OF CARE. PT IS AOX1, AWAKE, RESPONDS TO NAME, ABLE TO FOLLOW COMMANDS, WITH LEFT SIDED WEAKNESS. ON 2L O2 VIA NC. RESPIRATIONS ARE EVEN AND UNLABORED, NO APPARENT DISTRESS. ISOLATION PRECAUTION OBSERVED. SAFETY PRECAUTIONS IN PLACE. CALL LIGHT WITHIN REACH. WILL CONTINUE TO MONITOR
--- NOTE | 2019-10-24 07:29 | NUR ---
PATIENT IS NOT IN ANY ACUTE DISTRESS, NO SOB, ALL NEEDS ATTENDED. IN STABLE CONDITION. ENDORSED TO AM SHIFT RN FOR CONTINUITY OF CARE.
[2019-10-24 08:00] VITALS: BP 145/59
[2019-10-24] MEDS: NACL 0.9% 1,000 ML IV SCH (08:40)
[2019-10-24] MEDS: METOPROLOL 25 MG TAB PO SCH (09:00)
[2019-10-24] MEDS: INSULIN LANTUS 100 UNITS/ML 10 ML VIAL SUBQ SCH (09:00)
[2019-10-24] MEDS: BENAZEPRIL 20 MG TAB PO SCH (09:00)
[2019-10-24] MEDS: OXYBUTYNIN 5 MG TAB PO SCH (09:00)
[2019-10-24] MEDS: GABAPENTIN 300 MG CAP PO SCH ×2 (09:00→20:24)
[2019-10-24] MEDS: ASPIRIN 81 MG TAB.CHEW PO SCH (09:00)
[2019-10-24] MEDS: LINEZOLID 600MG PREMIX 300 ML IV SCH ×2 (09:50→20:23)
[2019-10-24] MEDS: PANTOPRAZOLE 40 MG INJ VIAL IVP SCH (09:50)
[2019-10-24] MEDS ORDERED: DEXTROSE 10% 1,000 ML IV SCH (09:55)
[2019-10-24] MEDS ORDERED: MAG SULF 2000 MG/WATER PREMIX 50 ML IV SCH (10:00)
[2019-10-24 12:00] VITALS: BP 139/72
--- NOTE | 2019-10-24 13:00 | NUR ---
OR NURSE CAME TO [facility] THE PATIENT TO HAVE G TUBE PLACEMENT. WILL FOLLOW UP
[2019-10-24] MEDS ORDERED: fentaNYL citrate 0.05 MG/ML VIAL ONE (13:10)
[2019-10-24] MEDS ORDERED: MIDAZOLAM 2 MG/2 ML VIAL ONE (13:11)
--- NOTE | 2019-10-24 13:50 | NUR ---
PATIENT TRANSFERRED BACK TO FLOOR POST G TUBE INSERTION. PATIENT'S VITAL SIGNS CHECKED. PATIENT IS SLEEPING, WITH NO ACUTE DISTRESS NOTED. WILL CLOSELY MONITOR.
[2019-10-24] MEDS ORDERED: MIDAZOLAM 2 MG/2 ML VIAL IVP ONE (14:15)
[2019-10-24] MEDS ORDERED: fentaNYL citrate 0.05 MG/ML VIAL IVP ONE (14:15)
--- NOTE | 2019-10-24 15:01 | NUR ---
10/24/19 RD FOLLOW UP COMPLETED PLEASE REFER TO NUTRITION ASSESSMENT UNDER CARE ACTIVITY FOR ESTIMATED NUTRITIONAL NEEDS. 1. IF PT WILL NOT NEED HD CONSIDER GLUCERNA 1.2 @ 70 ML/HR X 24 HR. START AT 10 ML INCREASE BY 20 ML Q6H -THIS PROVIDES 2016 CALORIES AND 101 GM OF PROTEIN 2. IF PT WILL NEED HD CONSIDER NEPRO 1.8 @ 50 ML/HR X 24 HR. START AT 10 ML/HR INCREASE BY 20 ML Q6H -THIS WILL PROVIDE 2160 KCAL AND 97 GM OF PROTEIN 3. CONSIDER FREE WATER FLUSH OF 110 ML Q4H 4. CONSIDER FUTURE SWALLOW EVALUATION 5. RD TO FOLLOW-UP 2-3 DAYS, HIGH RISK IVONNE RITCHIE RD
[2019-10-24 16:00] VITALS: BP 142/73
--- NOTE | 2019-10-24 16:56 | NUR ---
POSSIBLE D/C FOR PT OVER THE WEEKEND. FAXED CLINICALS TO [facility] [phone] FAX [phone]
[2019-10-24] MEDS: INSULIN LISPRO SLIDING SCALE 100 UNITS/ML VIAL SUBQ PRN (17:16)
--- NOTE | 2019-10-24 19:30 | NUR ---
ENDORSED PATIENT WITH NEW G TUBE FEEDING TO KNUCKLE BENDER NURSE FOR CONTINUITY OF CARE.
--- NOTE | 2019-10-24 19:30 | NUR ---
RECEIVED BEDSIDE ENDORSEMENT FROM AM SHIFT RN, PATIENT IS ON O2 AT 2L WITH SATURATION OF 94%. NO SOB, FLACC 0, IVF INFUSING TO LEFT SUBCLAVIAN W/ 3 LUMENS, ON GOING GT FEEDING, GT SITE INTACT, PATENT, WITH RIGHT ALLAN CATH FOR HD. INDWELLING CORONADO CATHETER IN PLACE DRAINING YELLOW URINE. FALL PRECAUTION IN PLACE, CONTACT PRECAUTION OBSERVED FOR MRSA NARES AND E COLI URINE, PLAN OF CARE DISCUSSED, CALL LIGHT WITHIN REACH.
[2019-10-24 20:00] VITALS: BP 141/71
[2019-10-24] MEDS ORDERED: AMINO ACIDS IV SCH ×4 (20:00)
[2019-10-24] MEDS ORDERED: [UNRECOGNIZED DRUG - OTHER] IV SCH ×4 (20:00)
[2019-10-24] MEDS ORDERED: MULTIVITAMIN IV SCH ×4 (20:00)
[2019-10-24] MEDS ORDERED: DEXTROSE IV SCH ×4 (20:00)
[2019-10-24] MEDS: ATORVASTATIN 20 MG TAB PO SCH (20:23)
--- NOTE | 2019-10-24 20:23 | NUR ---
HOB ELEVATED, DUE MEDS GIVEN ORDERED, TOLERATED WELL, NO A/R NOTED.
[2019-10-24] MEDS: MIRTAZAPINE 15 MG TAB PO SCH (20:24)
--- NOTE | 2019-10-24 21:00 | NUR ---
DID NOT ADMINISTER THE VERSED AND SUBLIMAZED. I'M NOT HERE DURING THE DAY.
--- NOTE | 2019-10-24 21:30 | NUR ---
PATIENT CARE DONE WITH THE HELP OF FACILITIES OFFICER, ALSO CLEANSED SACROCOCCYX AND APPLIED Z-GUARD, AND FOAM DRESSING. REPOSITIONED, SUCTIONED, KEPT CLEAN, DRY AND COMFORTABLE. CALL LIGHT WITHIN REACH.
[2019-10-25] VITALS: BP 108/65
[2019-10-25] MEDS: PIPERACILLIN/TAZOBACTAM 2.25 GM in DEXTROSE 5% 50 ML IV SCH ×2 (00:32→10:42)
--- NOTE | 2019-10-25 00:32 | NUR ---
ZOSYN IV GIVEN ORDERED, TOLERATED WELL, NO A/R NOTED. BLOOD SUGAR 202, 4 UNITS OF HUMALOG GIVEN SQ AT R ARM, TOLERATED WELL, PATIENT IS RESTING. NO PAIN NOTED.
[2019-10-25] MEDS: BLOOD GLUCOSE MONITORING 1 DEV DEV MC SCH ×3 (00:39→11:56)
[2019-10-25] MEDS: INSULIN LISPRO SLIDING SCALE 100 UNITS/ML VIAL SUBQ PRN ×2 (00:42→06:41)
[2019-10-25] MEDS: Z-GUARD PASTE TP SCH ×2 (00:45→13:38)
--- NOTE | 2019-10-25 02:15 | NUR ---
PATIENT IS SLEEPING.
[2019-10-25] MEDS: ALBUTEROL SULFATE/IPRATROPIU 3 ML SOL IH SCH ×3 (03:00→10:48)
[2019-10-25 04:00] VITALS: BP 144/84
--- NOTE | 2019-10-25 04:00 | NUR ---
V/S TAKEN AND RECORDED, SUCTIONED, REPOSITIONED, KEPT CLEAN, DRY AND COMFORTABLE AT ALL TIMES, CALL LIGHT WITHIN REACH.
[2019-10-25] MEDS: NACL 0.9% 1,000 ML IV SCH (04:40)
--- NOTE | 2019-10-25 07:19 | NUR ---
PATIENT IS IN STABLE CONDITION, TOLERATING GT FEEDING WELL, NO DISTRESS NOTED, NO SOB, BEDSIDE ENDORSEMENT GIVEN TO KAYLEE NEGRETE FOR CONTINUITY OF CARE.
--- NOTE | 2019-10-25 07:20 | NUR ---
RECEIVED BEDSIDE REPORT FROM BACKUP SAWYER NURSE LANA FOR CONTINUITY OF CARE. PT IS ALSEEP COMFORTABLY ON BED AND CHEST RISES EVEN AND UNLABORED NOTED ON 2 LPM VIA NC, SPO2 AT 94%. FLACC 0. NO SIGNS OF ACUTE DISTRESS NOTED. L SUBCLAVIAN PICC LINE TRIPLE LUMEN, INFUSING PER MD ORDER, AND Q ALLAN CATH NOTED,CLEAN AND INTACT. SKIN WARM TO TOUCH AND COCCYX PRESSURE INJURY NOTED, COVERED WITH OPTIFOAM, CLEAN AND INTACT. PATIENT IS BEDREST AND INCONTINENT, CORONADO IN PLACE, DRAINING YELLOW URINE WITH GRAVITY. SAFETY MEASURES IN PLACE. BED IN LOW POSITION, CALL LIGHT WITHIN REACH, BED LOCKED AND BED ALARM ACTIVATED. CONTACT PRECAUTION AND FALL PRECAUTION IN PLACE IN PLACE.
[2019-10-25 07:23] LABS: ALBUMIN 2.2 g/dL (3.4-5.0); ANION GAP 27.3 (8-16); ASPARTATE AMINOTRANSFERASE 20 U/L (15-37); CARBON DIOXIDE 16.1 mmol/L (21-32); CHLORIDE 100 mmol/L (98-107); CREATININE 3.1 mg/dL (0.6-1.3); GLUCOSE 170 mg/dL (74-106); MAGNESIUM 1.7 mg/dL (1.8-2.4); PHOSPHORUS 4.5 mg/dL (2.5-4.9); POTASSIUM 4.4 mmol/L (3.5-5.1); SODIUM SERUM 139 mmol/L (136-145); TOTAL BILIRUBIN 0.8 mg/dL (0.0-1.0); UREA NITROGEN, BLOOD 35 mg/dL (7-18)
[2019-10-25 08:00] VITALS: BP 141/88
[2019-10-25] MEDS: METOPROLOL 25 MG TAB PO SCH (09:00)
[2019-10-25] MEDS: BENAZEPRIL 20 MG TAB PO SCH (09:00)
[2019-10-25] MEDS: PANTOPRAZOLE 40 MG INJ VIAL IVP SCH (10:06)
[2019-10-25] MEDS: ASPIRIN 81 MG TAB.CHEW PO SCH (10:07)
[2019-10-25] MEDS: LINEZOLID 600MG PREMIX 300 ML IV SCH (10:07)
[2019-10-25] MEDS: GABAPENTIN 300 MG CAP PO SCH (10:07)
[2019-10-25] MEDS: OXYBUTYNIN 5 MG TAB PO SCH (10:07)
[2019-10-25] MEDS: INSULIN LANTUS 100 UNITS/ML 10 ML VIAL SUBQ SCH (10:13)
--- NOTE | 2019-10-25 10:15 | NUR ---
HOLD AM BP MEDS DUE TO DIALYSIS. CHECKED BLOOD GLUCOSE AND RECEIVED 109. ADMINISTERED SCHEDULED MEDS VIA G-TUBE PER MD ORDER, MEDS EDUCATION PROVIDED AND REINFORCEMENT NEEDED, FLUSH BEFORE AND AFTER MEDS, CHECKED RESIDUAL AND RECEIVED < 10 ML. PATIENT IS IN DIALYSIS NOW AND LUSTER REPAIRER BY BEDSIDE. NO SIGNS OF DISTRESS NOTED. SAFETY MEASURES IN PLACE. TELE MONITOR IN PLACE.
[2019-10-25] MEDS ORDERED: ALBUMIN HUMAN 25% 100 ML IV SCH (10:41)
--- NOTE | 2019-10-25 10:48 | NUR ---
ALBUMIN ADMINISTERED PER DR SHABAZZ'S ORDER TO SUPPORT BP DURING DIALYSIS.
--- NOTE | 2019-10-25 10:49 | NUR ---
HEMODIALYSIS IN PROGRESS OROPHARYNGEAL SUCTION FOR LARGE SEMI THICK YELLOW SECRETIONS AIRWAY PATENT
--- NOTE | 2019-10-25 11:05 | NUR ---
DIALYSIS ENDED DUE TO LOW BP AND TOOK OUT 2 L.
--- NOTE | 2019-10-25 11:57 | NUR ---
CHECKED BLOOD GLUCOSE AND RECEIVED 132, NO COVERAGE NEEDED. PATIENT IS RESTING ON BED AT THIS TIME, EYES OPEN TO VOICE. NO SIGNS OF ACUTE DISTRESS NOTED. TELE MONITOR IN PLACE. SAFETY MEASURES IN PLACE.
[2019-10-25 12:00] VITALS: BP 112/68
--- NOTE | 2019-10-25 13:38 | NUR ---
WITH ASSIST FROM TRICK RODEO RIDER, PROVIDED WOUND CARE, APPLIED Z-GUARD AND SECURED WITH OPTIFOAM, UPLOADED PRESSURE WITH PILLOWS FROM LEGS, ARMS, AND BONY AREA, PATIENT TOLERATED WELL. NO SIGNS OF DISTRESS NOTED. TELE MONITOR IN PLACE. SAFETY MEASURES IN PLACE.
--- NOTE | 2019-10-25 14:15 | NUR ---
BELT BACK OPERATOR NOTIFIED PATIENT IS BRADYCARDIA TO 30 BPM, ATTENDED TO PATIENT WITH TUBE KNITTER AND ASSESSED FOR CAROTID PULSE, NO PULSE DETECTED. CODE BLUE ACTIVATED AND STARTED COMPRESSION.
--- NOTE | 2019-10-25 14:22 | NUR ---
CODE TEAM ARRIVED. CODE RAN BY ER MD DR NORTH AND DR SANTIAGO. SEE CODE BLUE RECORD.
--- NOTE | 2019-10-25 14:30 | NUR ---
NOTIFIED BROTHER ADARSH REGARDING THE STATUS OF THE PATIENT AT THIS TIME.
--- NOTE | 2019-10-25 14:33 | NUR ---
PATIENT WAS INTUBATED AND BP CHECKED 126/70 PULSE 132. RT IS CONNECTING PATIENT TO VENTILATOR. TELE MONITOR IN PLACE. WILL MONITOR PATIENT CLOSELY.
[2019-10-25] MEDS ORDERED: ATROPINE 1 MG/10 ML SYR IVP SCH (15:03)
--- NOTE | 2019-10-25 15:12 | NUR ---
CXR FOR TUBE PLACEMENT COMPLETED REVIEWED AT [facility] BY DR. ROSE MARIE PETERS "GOOD PLACEMENT"
--- NOTE | 2019-10-25 15:15 | NUR ---
PATIENT'S PULSE IS DECREASING AND BP UNABLE TO READ. CHECKED PULSE, NO PULSE FOUND. CODE BLUE ACTIVATED AND COMPRESSIONS STARTED. CODE TEAM ARRIVED. DR NORTH, DR PETERS AND DR SANTIAGO AT BEDSIDE. SEE CODE BLUE RECORD.
[2019-10-25] MEDS ORDERED: AMIODARONE 150 MG in DEXTROSE 5% 100 ML IV SCH (15:30)
--- NOTE | 2019-10-25 15:35 | NUR ---
DR SANTIAGO PRONOUNCED .
--- NOTE | 2019-10-25 16:37 | NUR ---
CALLED [facility] AND SPOKE WITH PRETTY,PROVIDED ALL REQUESTED INFORMATION AND PER PRETTY, THEY WILL NOT VETERINARY NURSE THE BODY, REFERRAL #[id number]
--- NOTE | 2019-10-25 16:48 | NUR ---
CALLED [employer] ASSIST[employer] AND SPOKE WITH JAYESH, PER JAYESH, ONE OF THE PIZZA HUT ASSISTANT WILL CALL BACK SOON THEY CAN.
--- NOTE | 2019-10-25 16:55 | NUR ---
CALLED PATIENT'S BROTHER ADARSH AND EXPLAINED THAT WE DO NOT HAVE A MORGUE IN THE HOSPITAL AND A MORTUARY WILL NEED TO BE ARRANGED SOON POSSIBLE. ADARSH VERBALIZED UNDERSTANDING AND WILL START THE ARRANGEMENT NOW. HE WILL CALL BACK ONCE ESTABLISHED. AWAITING FOR ADARSH TO CALL BACK.
--- NOTE | 2019-10-25 17:41 | NUR ---
RECEIVED A CALL BACK FROM PATIENT'S BROTHER ADARSH. PER ADARSH, THEY HAVE ARRANGE [facility] [place] [phone] TO EVISCERATOR BODY IN ABOUT 2-3 HOURS. VERIFIED AND RECEIVED VERBAL CONSENT FOR RELEASE THE BODY, VERIFIED WITH PRICE CHECKER.
--- NOTE | 2019-10-25 17:51 | NUR ---
RECEIVED A CALL BACK FROM RECORDS ANALYST AND SPOKE WITH GERMANI INGRAM, PROVIDED ALL REQUESTED INFORMATION. PER GERMAIN, THERE IS NO RECORDS ANALYST CASE AND WILL RELEASE BODY TO MORTUARY. NO CASE NUMBER.
--- NOTE | 2019-10-25 18:10 | NUR ---
NOTIFIED [place] SNYDER THAT PATIENT AT 1535, [place] WAS AWARE.
--- NOTE | 2019-10-25 18:45 | NUR ---
POST MORTEM PERFORMED WITH CATTLE DEHORNER, BODY CLEANED AND TAGGED, REMOVED ALL TUBINGS AND LINES. AWAITING FOR MORTUARY TO CLIENT SERVER PROGRAMMER.
--- NOTE | 2019-10-25 19:20 | NUR ---
RECEIVED REPORT FROM DAY SHIFT NURSE. PT ALREADY . POST MORTEM CARE ALREADY DONE PER AM NURSE. AM NURSE CONTACTED FAMILY, [facility], AND COMMISSIONS COORDINATOR. ALL DOCUMENTS PREPARED WELL. AWAITING MORTUARY FOR BODY AUTO FINANCE SALES REP.
--- NOTE | 2019-10-25 19:30 | NUR ---
ENDORSED BODY TO JUNIOR ESTIMATOR NURSE LUIS A AND AWAITING FOR MORTUARY TO ARRIVE TO TELETYPE MECHANIC.
[2019-10-25] MEDS ORDERED: DEXTROSE IV SCH ×4 (20:00)
[2019-10-25] MEDS ORDERED: AMINO ACIDS IV SCH ×4 (20:00)
[2019-10-25] MEDS ORDERED: [UNRECOGNIZED DRUG - OTHER] IV SCH ×4 (20:00)
[2019-10-25] MEDS ORDERED: MULTIVITAMIN IV SCH ×4 (20:00)
--- NOTE | 2019-10-25 23:20 | NUR ---
CARLIE KAUR ARRIVED AND PICKED UP PATIENT.
== END 2019-10-25 23:20 | disposition expired | DRG 870 ==
LOC: MED 13:48 → MIC 17:20 → MTU 10-22 18:30
PROC: 5A1955Z Respiratory Ventilation, Greater than 96 Consecutive Hours (ICD-10-PCS; principal; 2019-10-12)
PROC: 0BH17EZ Insertion of Endotracheal Airway into Trachea, Via Natural or Artificial Opening (ICD-10-PCS; 2019-10-12)
PROC: 5A1D70Z Performance of Urinary Filtration, Intermittent, Less than 6 Hours Per Day (ICD-10-PCS; 2019-10-13)
PROC: 5A1D70Z Performance of Urinary Filtration, Intermittent, Less than 6 Hours Per Day (ICD-10-PCS; 2019-10-14)
PROC: 5A1D70Z Performance of Urinary Filtration, Intermittent, Less than 6 Hours Per Day (ICD-10-PCS; 2019-10-17)
PROC: 02HV33Z Insertion of Infusion Device into Superior Vena Cava, Percutaneous Approach (ICD-10-PCS; 2019-10-18)
PROC: B548ZZA Ultrasonography of Superior Vena Cava, Guidance (ICD-10-PCS; 2019-10-18)
PROC: 02HV33Z Insertion of Infusion Device into Superior Vena Cava, Percutaneous Approach (ICD-10-PCS; 2019-10-18)
PROC: 02PYX3Z Removal of Infusion Device from Great Vessel, External Approach (ICD-10-PCS; 2019-10-18)
PROC: 5A1D70Z Performance of Urinary Filtration, Intermittent, Less than 6 Hours Per Day (ICD-10-PCS; 2019-10-19)
PROC: 5A1D70Z Performance of Urinary Filtration, Intermittent, Less than 6 Hours Per Day (ICD-10-PCS; 2019-10-20)
PROC: 5A1D70Z Performance of Urinary Filtration, Intermittent, Less than 6 Hours Per Day (ICD-10-PCS; 2019-10-22)
PROC: 0DH63UZ Insertion of Feeding Device into Stomach, Percutaneous Approach (ICD-10-PCS; 2019-10-24)
PROC: 5A12012 Performance of Cardiac Output, Single, Manual (ICD-10-PCS; 2019-10-25)
PROC: 5A1D70Z Performance of Urinary Filtration, Intermittent, Less than 6 Hours Per Day (ICD-10-PCS; 2019-10-25)
DX: A41.89 Other specified sepsis (principal); J96.01 Acute respiratory failure with hypoxia; U07.1 COVID-19; R65.21 Severe sepsis with septic shock; N17.0 Acute kidney failure with tubular necrosis; E43 Unspecified severe protein-calorie malnutrition; I21.4 Non-ST elevation (NSTEMI) myocardial infarction; J12.89 Other viral pneumonia; N18.6 End stage renal disease; G93.40 Encephalopathy, unspecified; I48.20 Chronic atrial fibrillation, unspecified; I48.92 Unspecified atrial flutter; I69.354 Hemiplegia and hemiparesis following cerebral infarction affecting left non-dominant side; N39.0 Urinary tract infection, site not specified; Z99.11 Dependence on respirator [ventilator] status; I12.0 Hypertensive chronic kidney disease with stage 5 chronic kidney disease or end stage renal disease; B96.20 Unspecified Escherichia coli [E. coli] as the cause of diseases classified elsewhere; E03.9 Hypothyroidism, unspecified; E78.5 Hyperlipidemia, unspecified; I25.10 Atherosclerotic heart disease of native coronary artery without angina pectoris; I48.0 Paroxysmal atrial fibrillation; I69.320 Aphasia following cerebral infarction; L89.159 Pressure ulcer of sacral region, unspecified stage; N40.0 Benign prostatic hyperplasia without lower urinary tract symptoms; E11.22 Type 2 diabetes mellitus with diabetic chronic kidney disease; F32.9 Major depressive disorder, single episode, unspecified; E11.40 Type 2 diabetes mellitus with diabetic neuropathy, unspecified; N31.9 Neuromuscular dysfunction of bladder, unspecified; E87.5 Hyperkalemia; K22.2 Esophageal obstruction; R13.10 Dysphagia, unspecified; Z79.01 Long term (current) use of anticoagulants; Z99.2 Dependence on renal dialysis; Z79.82 Long term (current) use of aspirin; Z79.84 Long term (current) use of oral hypoglycemic drugs; Z79.4 Long term (current) use of insulin; Z79.899 Other long term (current) drug therapy; Z68.25 Body mass index [BMI] 25.0-25.9, adult; I46.9 Cardiac arrest, cause unspecified
CPT/HCPCS: 31500; 36415; 36600; 71045; 80048; 80053; 81001; 82140; 82150; 82550; 82728; 82803; 82948; 83036; 83605; 83615; 83690; 83735; 83880; 84100; 84436; 84443; 84484; 85025; 85379; 85384; 85610; 85651; 85730; 86140; 86704; 86706; 86708; 86709; 86803; 87040; 87081; 87086; 87186; 87340; 87420; 87804; 92526; 92610; 92950; 93005; 94002; 94003; 94640; 94667; 96365; 96366; 96367; 96375; 99291; 99292; A9153; C9113; J0282; J0360; J0456; J0461; J1100; J1265; J1644; J1650; J1815; J2020; J2060; J2250; J2270; J2543; J2704; J3010; J3475; J3480; J3490; J7030; J7042; J7060; J7120; J7614; P9046; Q0092; U0003-CS